=== PATIENT | female | born 1975 | race Two or more races ===

== ENCOUNTER 2020-02-22 08:56 | Outpatient (REF) | payer OTHER, SELFPAY | END 2020-02-22 08:57 | disposition home or self-care (01) | LOC: HO.LAB 08:56 | PROVIDERS: PCP Internal Medicine; Visit Provider Internal Medicine | DX: Z20.828 Contact with and (suspected) exposure to other viral communicable diseases (principal) | CPT/HCPCS: C9803; U0003 ==

== ENCOUNTER 2020-05-16 07:16 | Outpatient (REF) | payer OTHER, SELFPAY ==
[2020-05-16 08:43] LABS: MANUAL DIFF FLAG NO
[2020-05-16 08:52] LABS: Basophils Percent Auto 0.3 % (0-2); Eosinophils Absolute Auto 0.1 X10*3/uL (0.0-0.4); Eosinophils Percent Auto 0.8 % (0-4); Hematocrit 37.9 % (37-47); Hemoglobin 12.4 g/dl (12.0-16.0); Imm Gran Abs Auto 0.05 X10*3/uL (0.00-0.03); Imm Gran Pct Auto 0.5 % (0.0-0.4); Lymphocytes Absolute Auto 3.5 X10*3/uL (1.2-4.9); Lymphocytes Percent Auto 33.1 % (20-40); Mean Corpuscular HGB Conc 32.7 g/dl (31.0-35.0); Mean Corpuscular Hemoglobin 27.7 pg (27.0-33.0); Mean Corpuscular Volume 84.6 fL (80-98); Mean Platelet Volume 9.6 fL (9.4-12.3); Monocytes Absolute Auto 0.7 X10*3/uL (0.1-1.2); Monocytes Percent Auto 6.2 % (2-11); Neutrophils Absolute Auto 6.3 X10*3/uL (2.0-8.3); Neutrophils Percent Auto 59.1 % (45-73); Platelet Count 364 X10*3/uL (160-400); Red Blood Count 4.48 X10*6/uL (4.20-5.50); Red Cell Distribution Width 12.5 % (11.0-16.0); White Blood Count 10.7 X10*3/uL (4.8-10.8)
[2020-05-16 09:03] LABS: Estimated Average Glucose 263 mg/dL; Hemoglobin A1c % 10.8 %
[2020-05-16 09:05] LABS: Glucose Urine UA 100 MG/DL (NEG); Leukocyte Esterase Urine TRACE (NEG); Nitrite Urine NEG (NEG); Specific Gravity - Urine >= 1.030 (1.005-1.025); UACC Culture Trigger YES; Urine Blood NEG (NEG); Urine Ketones NEG (NEG); Urine Protein NEG (NEG-TRACE)
[2020-05-16 09:12] LABS: Appearance Urine HAZY; Color Urine YELLOW
[2020-05-16 09:13] LABS: Alanine Aminotransferase 62 U/L (0-31); Albumin Level 4.2 g/dL (3.5-5.0); Alkaline Phosphatase 93 U/L (39-117); Anion Gap 13 (12-20); Aspartate Amino Transferase 33 U/L (5-31); Bilirubin Total 0.5 mg/dL (0.0-1.0); Blood Urea Nitrogen 11 mg/dL (9-16); Carbon Dioxide 26 mmol/L (22-29); Chloride 100 mmol/L (96-108); Cholesterol 214 mg/dL; Estimated Glomerular Filt Rate > 60; Glucose Fasting 242 mg/dL (60-99); HDL Cholesterol 35 mg/dL; Potassium 4.4 mmol/L (3.3-5.1); Sodium 135 mmol/L (135-145); Total Protein 7.2 g/dL (6.5-8.0); Triglycerides 528 mg/dL
[2020-05-16 09:22] LABS: Bacteria Urine 1+ /LPF; Mucus Urine 2+ /LPF; RBC Urine 0 /HPF (0); Squamous Epithelial Cell Urine 1+ /LPF; UACC CULT YES
[2020-05-16 09:23] LABS: TSH reflex Free T4 3.33 uIU/mL (0.32-4.0); Vitamin D 25-OH Total 24.8 ng/mL (>30)
[2020-05-16 09:41] LABS: Creatinine Urine 140.73 mg/dL
== END 2020-05-16 07:17 | disposition home or self-care (01) ==
LOC: HO.LAB 07:16
PROVIDERS: PCP Internal Medicine; Visit Provider Internal Medicine
DX: E11.9 Type 2 diabetes mellitus without complications (principal); E78.00 Pure hypercholesterolemia, unspecified; R94.5 Abnormal results of liver function studies; E55.9 Vitamin D deficiency, unspecified; E66.01 Morbid (severe) obesity due to excess calories
CPT/HCPCS: 36415; 80053; 80061; 81001; 82043; 82306; 83036; 84443; 85025; 87086

== ENCOUNTER 2021-02-09 07:19 | Outpatient (REF) | payer OTHER, SELFPAY ==
[2021-02-09 07:43] LABS: MANUAL DIFF FLAG NO
[2021-02-09 08:07] LABS: Basophils Percent Auto 0.2 % (0-2); Eosinophils Absolute Auto 0.1 X10*3/uL (0.0-0.4); Eosinophils Percent Auto 1.1 % (0-4); Imm Gran Abs Auto 0.05 X10*3/uL (0.00-0.03); Imm Gran Pct Auto 0.6 % (0.0-0.4); Lymphocytes Absolute Auto 3.1 X10*3/uL (1.2-4.9); Lymphocytes Percent Auto 35.7 % (20-40); Mean Corpuscular HGB Conc 32.4 g/dl (31.0-35.0); Mean Corpuscular Hemoglobin 27.2 pg (27.0-33.0); Mean Corpuscular Volume 83.9 fL (80.0-98.0); Mean Platelet Volume 9.3 fL (9.4-12.3); Monocytes Absolute Auto 0.6 X10*3/uL (0.1-1.2); Monocytes Percent Auto 6.5 % (2-11); Neutrophils Absolute Auto 4.86 x10*3/uL (2.0-8.3); Neutrophils Percent Auto 55.9 % (45-73); Platelet Count 401 X10*3/uL (160-400); Red Blood Count 4.41 X10*6/uL (4.20-5.50); Red Cell Distribution Width 12.3 % (11.0-16.0); White Blood Count 8.7 X10*3/uL (4.8-10.8)
[2021-02-09 08:38] LABS: Alanine Aminotransferase 31 U/L (0-31); Alkaline Phosphatase 86 U/L (39-117); Anion Gap 12 (12-20); Aspartate Amino Transferase 24 U/L (5-31); Bilirubin Total 0.6 mg/dL (0.0-1.0); Blood Urea Nitrogen 12 mg/dL (9-16); Calcium 9.3 mg/dL (8.4-10.2); Carbon Dioxide 25 mmol/L (22-29); Chloride 104 mmol/L (96-108); Cholesterol 204 mg/dL; Estimated Glomerular Filt Rate > 60; Glucose Fasting 192 mg/dL (60-99); HDL Cholesterol 30 mg/dL; Potassium 4.2 mmol/L (3.3-5.1); Sodium 137 mmol/L (135-145); Triglycerides 404 mg/dL
[2021-02-09 08:39] LABS: Estimated Average Glucose 206 mg/dL; Hemoglobin A1c % 8.8 %
[2021-02-09 08:45] LABS: Appearance Urine HAZY; Color Urine YELLOW; Glucose Urine UA NEG (NEG); Leukocyte Esterase Urine TRACE (NEG); Nitrite Urine NEG (NEG); Specific Gravity - Urine 1.025 (1.005-1.025); UACC Culture Trigger YES; Urine Blood NEG (NEG); Urine Ketones NEG (NEG); Urine Protein NEG (NEG-TRACE)
[2021-02-09 09:00] LABS: TSH reflex Free T4 2.44 uIU/mL (0.32-4.0); Vitamin D 25-OH Total 16.5 ng/mL (>30)
[2021-02-09 09:15] LABS: Creatinine Urine 94.12 mg/dL; Microalbum/Creatinine Ratio Ur 26.5 ug/mg cr
[2021-02-09 09:22] LABS: RBC Urine 0 /HPF (0)
[2021-02-09 09:23] LABS: Mucus Urine 2+ /LPF; Squamous Epithelial Cell Urine 2+ /LPF
== END 2021-02-09 07:20 | disposition home or self-care (01) ==
LOC: HO.LAB 07:19
PROVIDERS: PCP Internal Medicine; Visit Provider Internal Medicine
DX: I10 Essential (primary) hypertension (principal); E78.00 Pure hypercholesterolemia, unspecified; E11.9 Type 2 diabetes mellitus without complications; E55.9 Vitamin D deficiency, unspecified
CPT/HCPCS: 36415; 80053; 80061; 81001; 81003; 82043; 82306; 83036; 84443; 85025; 87086

== ENCOUNTER 2021-06-12 07:31 | Outpatient (REF) | payer OTHER, SELFPAY ==
[2021-06-12 07:48] LABS: MANUAL DIFF FLAG NO
[2021-06-12 08:14] LABS: Basophils Percent Auto 0.3 % (0-2); Eosinophils Absolute Auto 0.1 X10*3/uL (0.0-0.4); Eosinophils Percent Auto 1.2 % (0-4); Hemoglobin 12.2 g/dl (12.0-16.0); Imm Gran Abs Auto 0.03 X10*3/uL (0.00-0.03); Imm Gran Pct Auto 0.4 % (0.0-0.4); Lymphocytes Percent Auto 39.3 % (20-40); Mean Corpuscular HGB Conc 31.3 g/dl (31.0-35.0); Mean Corpuscular Hemoglobin 26.5 pg (27.0-33.0); Mean Corpuscular Volume 84.8 fL (80.0-98.0); Mean Platelet Volume 9.3 fL (9.4-12.3); Monocytes Absolute Auto 0.6 X10*3/uL (0.1-1.2); Monocytes Percent Auto 7.4 % (2-11); Neutrophils Absolute Auto 3.9 x10*3/uL (2.0-8.3); Neutrophils Percent Auto 51.4 % (45-73); Platelet Count 419 X10*3/uL (160-400); Red Cell Distribution Width 12.9 % (11.0-16.0); White Blood Count 7.6 X10*3/uL (4.8-10.8)
[2021-06-12 08:17] LABS: Appearance Urine CLOUDY; Color Urine YELLOW; Glucose Urine UA NEG (NEG); Leukocyte Esterase Urine 2+ (NEG); Nitrite Urine NEG (NEG); UACC Culture Trigger YES; Urine Blood NEG (NEG); Urine Ketones NEG (NEG); Urine Protein NEG (NEG-TRACE)
[2021-06-12 08:20] LABS: Estimated Average Glucose 203 mg/dL; Hemoglobin A1c % 8.7 %
[2021-06-12 08:32] LABS: Creatinine Urine 100.86 mg/dL; Microalbum/Creatinine Ratio Ur 29.7 ug/mg cr
[2021-06-12 08:34] LABS: Alanine Aminotransferase 20 U/L (0-31); Alkaline Phosphatase 86 U/L (39-117); Anion Gap 14 (12-20); Aspartate Amino Transferase 17 U/L (5-31); Bilirubin Total 0.7 mg/dL (0.0-1.0); Blood Urea Nitrogen 9 mg/dL (9-16); Calcium 9.3 mg/dL (8.4-10.2); Carbon Dioxide 26 mmol/L (22-29); Chloride 105 mmol/L (96-108); Cholesterol 215 mg/dL; Estimated Glomerular Filt Rate > 60; Glucose Fasting 177 mg/dL (60-99); HDL Cholesterol 33 mg/dL; LDL Cholesterol Calculated 126 mg/dl; Potassium 4.5 mmol/L (3.3-5.1); Sodium 140 mmol/L (135-145); Triglycerides 283 mg/dL
[2021-06-12 08:35] LABS: Bacteria Urine 1+ /LPF; RBC Urine 0 /HPF (0); Squamous Epithelial Cell Urine 4+ /LPF
[2021-06-12 08:58] LABS: TSH reflex Free T4 2.01 uIU/mL (0.32-4.0); Vitamin D 25-OH Total 14.4 ng/mL (>30)
== END 2021-06-12 07:32 | disposition home or self-care (01) ==
LOC: HO.LAB 07:31
PROVIDERS: PCP Internal Medicine; Visit Provider Internal Medicine
DX: I10 Essential (primary) hypertension (principal); E78.00 Pure hypercholesterolemia, unspecified; E11.9 Type 2 diabetes mellitus without complications; E55.9 Vitamin D deficiency, unspecified
CPT/HCPCS: 36415; 80053; 80061; 81001; 82043; 82306; 83036; 84443; 85025; 87086

== ENCOUNTER 2021-09-18 08:06 | Outpatient (REF) | payer OTHER, SELFPAY ==
[2021-09-18 08:28] LABS: MANUAL DIFF FLAG NO
[2021-09-18 09:19] LABS: Basophils Percent Auto 0.2 % (0-2); Eosinophils Absolute Auto 0.1 X10*3/uL (0.0-0.4); Eosinophils Percent Auto 1.1 % (0-4); Hematocrit 38.6 % (37.0-47.0); Hemoglobin 12.4 g/dl (12.0-16.0); Imm Gran Abs Auto 0.08 X10*3/uL (0.00-0.03); Imm Gran Pct Auto 0.8 % (0.0-0.4); Lymphocytes Absolute Auto 3.2 X10*3/uL (1.2-4.9); Lymphocytes Percent Auto 31.2 % (20-40); Mean Corpuscular HGB Conc 32.1 g/dl (31.0-35.0); Mean Corpuscular Hemoglobin 26.7 pg (27.0-33.0); Mean Corpuscular Volume 83.2 fL (80.0-98.0); Mean Platelet Volume 9.5 fL (9.4-12.3); Monocytes Absolute Auto 0.6 X10*3/uL (0.1-1.2); Neutrophils Absolute Auto 6.2 x10*3/uL (2.0-8.3); Neutrophils Percent Auto 60.7 % (45-73); Platelet Count 422 X10*3/uL (160-400); Red Blood Count 4.64 X10*6/uL (4.20-5.50); White Blood Count 10.2 X10*3/uL (4.8-10.8)
[2021-09-18 09:23] LABS: Appearance Urine HAZY; Color Urine YELLOW; Glucose Urine UA NEG (NEG); Leukocyte Esterase Urine TRACE (NEG); Nitrite Urine NEG (NEG); Specific Gravity - Urine 1.015 (1.005-1.025); Urine Blood NEG (NEG); Urine Ketones NEG (NEG); Urine Protein NEG (NEG-TRACE)
[2021-09-18 09:35] LABS: Estimated Average Glucose 177 mg/dL; Hemoglobin A1c % 7.8 %
[2021-09-18 09:47] LABS: Bacteria Urine 4+ /LPF; RBC Urine 0 /HPF (0)
[2021-09-18 09:49] LABS: Alanine Aminotransferase 22 U/L (0-31); Albumin Level 3.9 g/dL (3.5-5.0); Alkaline Phosphatase 83 U/L (39-117); Anion Gap 13 (12-20); Aspartate Amino Transferase 21 U/L (5-31); Bilirubin Total 0.7 mg/dL (0.0-1.0); Blood Urea Nitrogen 10 mg/dL (9-16); Calcium 8.7 mg/dL (8.4-10.2); Carbon Dioxide 25 mmol/L (22-29); Chloride 104 mmol/L (96-108); Cholesterol 192 mg/dL; Estimated Glomerular Filt Rate > 60; Glucose Fasting 153 mg/dL (60-99); HDL Cholesterol 32 mg/dL; LDL Cholesterol Calculated 113 mg/dl; Potassium 4.3 mmol/L (3.3-5.1); Sodium 138 mmol/L (135-145); Total Protein 6.9 g/dL (6.5-8.0); Triglycerides 235 mg/dL
[2021-09-18 10:12] LABS: TSH reflex Free T4 1.85 uIU/mL (0.32-4.0)
[2021-09-18 10:20] LABS: Creatinine Urine 72.05 mg/dL; Microalbum/Creatinine Ratio Ur 33.3 ug/mg cr
[2021-09-18 10:50] LABS: Vitamin D 25-OH Total 17.4 ng/mL (>30)
== END 2021-09-18 08:07 | disposition home or self-care (01) ==
LOC: HO.LAB 08:06
PROVIDERS: PCP Internal Medicine; Visit Provider Internal Medicine
DX: I10 Essential (primary) hypertension (principal); E55.9 Vitamin D deficiency, unspecified; E78.00 Pure hypercholesterolemia, unspecified; E11.9 Type 2 diabetes mellitus without complications
CPT/HCPCS: 36415; 80053; 80061; 81001; 82043; 82306; 83036; 84443; 85025

== ENCOUNTER 2021-11-05 11:38 | Outpatient (REF) | payer OTHER, SELFPAY ==
--- NOTE | ~2021-11-05 | US_ITS ---
EXAMINATION: US THYROID CLINICAL INFORMATION: Nontoxic single thyroid nodule. COMPARISON: None TECHNIQUE: Linear transducer grayscale and color Doppler examination with attention to the region of the thyroid. FINDINGS: SIZE: Measurements of the thyroid lobes and nodules are given in sagittal, anteroposterior and transverse dimensions respectively. Right Thyroid Lobe: 5.1 x 1.9 x 1.7 cm, volume 8.6 mL. Parenchyma: The gland echotexture is homogeneous. Thyroid vascularity is normal. Left Thyroid Lobe: 4.0 x 1.6 x 1.9 cm, volume 6.4 mL. Parenchyma: The gland echotexture is homogeneous. Thyroid vascularity is normal. Isthmus: 0.5 cm in maximum AP dimension. Estimated total number of nodules greater than or equal to 1 cm: 0. Falafel Cart Cook nodules are described as follows: 1. Location: Right inferior. Size: 0.5 x 0.3 x 0.3 cm, volume 0.02 mL. Nodule characteristics: Composition: Spongiform (0). Echogenicity: Anechoic (0). Shape: Not taller than wide (0). Margins: Smooth (0). Echogenic Foci: None (0). ACR TI-RADS total points: 0 ACR TI-RADS category: 1 2. Location: Right medial/inferior isthmus. Size: 0.7 x 0.3 x 0.6 cm, volume 0.07 mL. Nodule characteristics: Composition: Spongiform (0). Echogenicity: Anechoic (0). Shape: Not taller than wide (0). Margins: Smooth (0). Echogenic Foci: None (0). ACR TI-RADS total points: 0 ACR TI-RADS category: 1 NODES: No lymphadenopathy is seen in the tissue surrounding the thyroid gland. US/US thyroid IMPRESSION: Subcentimeter spongiform nodules and colloid cysts for which no imaging follow-up is recommended following the guidelines below. ACR TI-RADS RECOMMENDATION REFERENCE: Ultrasound-guided fine-needle aspiration, followup ultrasound, no further follow up. * TR1 (0 point) and TR 2 (2 points): No FNA or follow up * TR3 (3 points): FNA if more than or equal to 2.5 cm in maximum dimension, followup ultrasound in 1, 3 and 5 years if 1.5 to 2.4 cm in maximum dimension. * TR4 (4-6 points): FNA if more than or equal to 1.5 cm in maximum dimension, followup ultrasound in 1, 2, 3 and 5 years if 1 to 1.4 cm in maximum dimension. * TR5 (more than or equal to 7 points): FNA if more than or equal to 1 cm in maximum dimension, followup ultrasound every year for 5 years if 0.5 to 0.9 cm in maximum dimension. * TR3, TR4 or TR5 nodules that are below the size threshold for follow up receive no follow up.
== END 2021-11-05 11:39 | disposition home or self-care (01) ==
LOC: HO.HMGCX 11:38
PROVIDERS: Visit Provider Internal Medicine
DX: E04.1 Nontoxic single thyroid nodule (principal)
CPT/HCPCS: 76536

== ENCOUNTER 2022-06-24 08:53 | Outpatient (REF) | payer OTHER, SELFPAY ==
[2022-06-24 09:02] LABS: MANUAL DIFF FLAG NO
[2022-06-24 09:51] LABS: Basophils Percent Auto 0.2 % (0-2); Eosinophils Absolute Auto 0.1 X10*3/uL (0.0-0.4); Eosinophils Percent Auto 0.7 % (0-4); Hematocrit 39.1 % (37.0-47.0); Hemoglobin 12.7 g/dl (12.0-16.0); Imm Gran Abs Auto 0.05 X10*3/uL (0.00-0.03); Imm Gran Pct Auto 0.5 % (0.0-0.4); Lymphocytes Absolute Auto 3.7 X10*3/uL (1.2-4.9); Lymphocytes Percent Auto 35.9 % (20-40); Mean Corpuscular HGB Conc 32.5 g/dl (31.0-35.0); Mean Corpuscular Hemoglobin 27.7 pg (27.0-33.0); Mean Corpuscular Volume 85.2 fL (80.0-98.0); Mean Platelet Volume 9.9 fL (9.4-12.3); Monocytes Absolute Auto 0.7 X10*3/uL (0.1-1.2); Monocytes Percent Auto 6.6 % (2-11); Neutrophils Absolute Auto 5.8 x10*3/uL (2.0-8.3); Neutrophils Percent Auto 56.1 % (45-73); Platelet Count 456 X10*3/uL (160-400); Red Blood Count 4.59 X10*6/uL (4.20-5.50); White Blood Count 10.4 X10*3/uL (4.8-10.8)
[2022-06-24 09:54] LABS: Estimated Average Glucose 177 mg/dL; Hemoglobin A1c % 7.8 %
[2022-06-24 10:20] LABS: Appearance Urine Cloudy; Color Urine Yellow; Glucose Urine UA >=1000 mg/dL (Negative); Leukocyte Esterase Urine Negative (Negative); Nitrite Urine Negative (Negative); PH 5.5 (5.0-9.0); Specific Gravity - Urine >= 1.030 (1.005-1.025); UMIC TRIGGER UACC YES; Urine Blood Trace (Negative); Urine Ketones Negative (Negative); Urine Protein Negative (Neg-Trace)
[2022-06-24 10:24] LABS: Bacteria Urine 3+ (None Seen); Hyaline Casts Urine 0-2 /LPF (0-2); RBC Urine 0-2 /HPF (0-2); WBC Urine 0-5 /HPF (0-5)
[2022-06-24 10:56] LABS: Alanine Aminotransferase 21 U/L (0-31); Alkaline Phosphatase 86 U/L (39-117); Anion Gap 15 (12-20); Aspartate Amino Transferase 31 U/L (5-31); Bilirubin Total 0.8 mg/dL (0.0-1.0); Blood Urea Nitrogen 16 mg/dL (9-16); Carbon Dioxide 24 mmol/L (22-29); Chloride 104 mmol/L (96-108); Cholesterol 176 mg/dL; Estimated Glomerular Filt Rate > 60; Glucose Fasting 145 mg/dL (60-99); HDL Cholesterol 32 mg/dL; LDL Cholesterol Calculated 107 mg/dl; Sodium 138 mmol/L (135-145); Total Protein 7.4 g/dL (6.5-8.0); Triglycerides 185 mg/dL
[2022-06-24 11:08] LABS: TSH reflex Free T4 2.04 uIU/mL (0.32-4.0); Vitamin D 25-OH Total 21.1 ng/mL (>30)
[2022-06-24 11:09] LABS: Creatinine Urine 148.89 mg/dL; Microalbum/Creatinine Ratio Ur 14.7 ug/mg cr
== END 2022-06-24 08:54 | disposition home or self-care (01) ==
LOC: HO.LAB 08:53
PROVIDERS: PCP Internal Medicine; Visit Provider Internal Medicine
DX: E11.9 Type 2 diabetes mellitus without complications (principal); E78.00 Pure hypercholesterolemia, unspecified; E55.9 Vitamin D deficiency, unspecified; I10 Essential (primary) hypertension
CPT/HCPCS: 36415; 80053; 80061; 81001; 82043; 82306; 83036; 84443; 85025

== ENCOUNTER 2022-08-26 08:20 | Outpatient (REF) | payer OTHER, SELFPAY ==
--- NOTE | ~2022-08-26 | MM_ITS ---
EXAMINATION: MM SCREENING DIGITAL BREAST TOMOSYNTHESIS, BILATERAL CLINICAL INFORMATION: Screening. Asymptomatic. The lifetime risk of breast cancer based on the Tyrer-Cuzick Model is 15%. COMPARISON: Mammography: 08/16/2017 (baseline) TECHNIQUE: Digital breast tomosynthesis is performed in both the craniocaudal and mediolateral oblique views along with computer-aided detection (CAD). Synthesized 2D images are generated from the tomosynthesis. FINDINGS: There are scattered areas of fibroglandular density (ACR BI-RADS breast composition Category b). Parenchymal pattern is similar to prior baseline exam. There is no interval mass or architectural abnormality or developing density. The axilla and skin contours are unremarkable. Right breast has no abnormal calcifications. Left breast has new tightly grouped calcifications on CC view, anterior inferior 3 cm from nipple and also anterior inferior medial 5 cm from nipple. Suspect both groups are probably benign dermal calcifications. Patient will be recalled to confirm with additional change in views. MM/MM tomosynthesis screening BI IMPRESSION: Left: -2 new groups of calcifications lower anterior left breast, suspect benign dermal etiology. Right: -No mammographic evidence of malignancy. ASSESSMENT: BI-RADS 0: Incomplete - Need Additional Imaging Evaluation RECOMMENDATION: 1. Additional special tangent localization views left breast for probable dermal calcifications. 2. Radiology department staff will contact the patient for additional imaging. This patient's information was entered into a reminder system with a target due date for their next mammogram.
== END 2022-08-26 08:21 | disposition home or self-care (01) ==
LOC: HO.MAMMO 08:20
PROVIDERS: PCP Internal Medicine; Visit Provider Internal Medicine
DX: Z12.31 Encounter for screening mammogram for malignant neoplasm of breast (principal)
CPT/HCPCS: 77063; 77067

== ENCOUNTER 2022-09-09 13:42 | Outpatient (REF) | payer OTHER, SELFPAY ==
--- NOTE | ~2022-09-09 | MM_ITS ---
EXAMINATION: MM DIAGNOSTIC DIGITAL MAMMOGRAPHY, LEFT CLINICAL INFORMATION: Recall from screening for new tightly grouped possibly dermal calcifications residing close to skin anterior inferior left breast and anterior inferior medial left breast. COMPARISON: Mammography: 08/26/2022, 08/16/2017 (baseline). TECHNIQUE: Digital mammography is performed for assessment of possible dermal calcifications at 2 locations inferior left breast using fenestrated paddle and BB with hinged views. Series includes tangent view with 3-D imaging. FINDINGS: There are scattered areas of fibroglandular density (ACR BI-RADS breast composition Category b). The grouped calcifications anterior 6:00 position are over 15 in number, grouped within an area of approximately 0.8 cm across and reside immediately deep to the skin on the tangent views and tangent digital breast tomosynthesis. The second group slightly more central and medial lower left breast are poorly discerned, lesser in number and also just deep to the skin. Results are discussed with the patient at time of visit. As dermal calcifications cannot be definitively confirmed, stereotactic targeting and sampling is recommended. It is possible that at time of stereotactic sampling intradermal calcifications may be more definitively complicated. Results and recommendation called to front office coordinator (Eva) for Dr. Nicolas on 09/09/2022. MM/MM added views LT IMPRESSION: -2 groups of new calcifications lower left breast, close to skin but not definitively intradermal on today's additional views. ASSESSMENT: BI-RADS 4: Suspicious RECOMMENDATION: -Attempt stereotactic targeting and tissue sampling for 2 groups of calcifications close to skin inferior left breast. This patient's information was entered into a reminder system with a target due date for their next mammogram.
== END 2022-09-09 13:43 | disposition home or self-care (01) ==
LOC: HO.MAMMO 13:42
PROVIDERS: PCP Internal Medicine; Visit Provider Internal Medicine
DX: R92.1 Mammographic calcification found on diagnostic imaging of breast (principal)
CPT/HCPCS: 77065

== ENCOUNTER 2022-09-14 08:43 | Outpatient (REF) | payer OTHER, SELFPAY ==
--- NOTE | ~2022-09-14 | MM_ITS ---
EXAMINATION: STEREOTACTIC TOMOSYNTHESIS-GUIDED VACUUM-ASSISTED BREAST BIOPSY (TWO SITES), LEFT SPECIMEN RADIOGRAPHS (TWO SPECIMENS), LEFT POST PROCEDURE DIGITAL MAMMOGRAM, LEFT CLINICAL INFORMATION: 2 groups of new calcifications lower left breast close to skin but not definitively intradermal on additional diagnostic imaging. Stereotactic sampling recommended. TC score 15%. COMPARISON: Mammography 09/09/2022, 08/26/2022 (BI-RADS 0), 08/16/2017 (baseline). TECHNIQUE/PROCEDURE: Informed consent was obtained from the patient after discussion of the benefits, risks, and alternatives to biopsy today. Patient appeared to understand. Gave opportunity for questions. Patient signed consent form. LEFT BREAST (Specimen A): BIOPSY TABLE: Hologic Affirm Prone Biopsy System. LESION: Tightly grouped heterogeneous calcifications close to skin lower anterior breast. LOCAL ANESTHESIA: 15 mL carbonated 1% lidocaine; 10 mL 1% lidocaine with epinephrine. DERMATOTOMY: Single skin cam dermatotomy performed. NEEDLE: Suros Eviva 9-gauge vacuum assisted core biopsy device. APPROACH: Caudal cranial. TARGETING: Combination of digital breast tomosynthesis and stereotactic digital mammography used for targeting. CORES: 6. CLIP: Suros SecurMark T-shaped marker. SPECIMEN RADIOGRAPH (A): Specimen radiograph is taken in separate room using digital mammography. The index calcifications are in the excised cores. There are at least 25 calcifications in the cores. LEFT BREAST (Specimen B): Fresh biopsy supplies are used for 2nd biopsy site. BIOPSY TABLE: Hologic Affirm Prone Biopsy System. LESION: Grouped calcifications lower inner anterior left breast. LOCAL ANESTHESIA: 10 mL 1% lidocaine; 10 mL 1% lidocaine with epinephrine. DERMATOTOMY: Single skin cam dermatotomy performed. NEEDLE: Suros Eviva 9-gauge vacuum assisted core biopsy device. APPROACH: Caudal cranial. TARGETING: Combination of digital breast tomosynthesis and stereotactic digital mammography used for targeting. CORES: 6. CLIP: Suros SecurMark Barrel-shaped marker. SPECIMEN RADIOGRAPH (B): Specimen radiograph is taken in separate room using digital mammography. There are at least 5 calcifications in the cores. POST PROCEDURE UNILATERAL DIGITAL MAMMOGRAM: The post biopsy mammogram is performed in separate room using separate digital mammography equipment from the biopsy procedure. CC and ML views are obtained. There are scattered areas of fibroglandular density (breast composition category: b). The clip markers are in position. The calcifications are markedly decreased at both biopsy sites. No gross hematoma. The patient tolerated the procedure well. No immediate complications. Home instructions reviewed with the patient. Final pathology results are pending. MM/MM stereotactic biopsy ea add IMPRESSION: 1. Digital tomosynthesis-guided core biopsy left breast with clip placement, 2 sites. 2. Specimen radiograph taken and post procedure mammogram. There is satisfactory positioning of the biopsy clips. 3. Final pathology results pending. An addendum report will be issued.
[2022-09-14] MEDS: Lidocaine HCl 1 % 20 ML VIAL 30 ML SUBCUT (12:08)
[2022-09-14] MEDS: Lidocaine HCl 1%/Epi 1:100,000 10 ML VIAL SUBCUT ×2 (12:13→12:15)
[2022-09-14] MEDS: Sodium Bicarbonate 8.4% 50 MEQ/50 ML VIAL SUBCUT (12:17)
== END 2022-09-14 08:44 | disposition home or self-care (01) ==
LOC: HO.MAMMO 08:43
PROVIDERS: PCP Internal Medicine; Visit Provider Surgery
DX: R92.0 Mammographic microcalcification found on diagnostic imaging of breast (principal)
CPT/HCPCS: 19081; 19082; 88305; A4648

== ENCOUNTER → 2022-09-21 08:44 | Outpatient (BNVA) | payer OTHER, SELFPAY | PROVIDERS: PCP Internal Medicine; Visit Provider Internal Medicine ==

== ENCOUNTER → 2022-09-22 07:19 | Outpatient (BNVA) | payer OTHER, SELFPAY | PROVIDERS: PCP Internal Medicine; Visit Provider Surgery ==

== ENCOUNTER 2022-11-10 08:38 | Outpatient (REF) | payer OTHER, SELFPAY ==
[2022-11-10 08:56] LABS: MANUAL DIFF FLAG NO
[2022-11-10 09:45] LABS: Basophils Percent Auto 0.2 % (0-2); Eosinophils Percent Auto 0.4 % (0-4); Hematocrit 39.3 % (37.0-47.0); Hemoglobin 12.6 g/dl (12.0-16.0); Imm Gran Abs Auto 0.04 X10*3/uL (0.00-0.03); Imm Gran Pct Auto 0.4 % (0.0-0.4); Lymphocytes Absolute Auto 3.2 X10*3/uL (1.2-4.9); Lymphocytes Percent Auto 34.5 % (20-40); Mean Corpuscular HGB Conc 32.1 g/dl (31.0-35.0); Mean Corpuscular Hemoglobin 26.6 pg (27.0-33.0); Mean Corpuscular Volume 82.9 fL (80.0-98.0); Mean Platelet Volume 9.6 fL (9.4-12.3); Monocytes Absolute Auto 0.6 X10*3/uL (0.1-1.2); Monocytes Percent Auto 6.3 % (2-11); Neutrophils Absolute Auto 5.4 x10*3/uL (2.0-8.3); Neutrophils Percent Auto 58.2 % (45-73); Platelet Count 403 X10*3/uL (160-400); Red Blood Count 4.74 X10*6/uL (4.20-5.50); White Blood Count 9.3 X10*3/uL (4.8-10.8)
[2022-11-10 09:47] LABS: Appearance Urine Cloudy; Color Urine Yellow; Glucose Urine UA >=1000 mg/dL (Negative); Leukocyte Esterase Urine Moderate (2+) (Negative); Nitrite Urine Negative (Negative); PH 5.5 (5.0-9.0); Specific Gravity - Urine 1.025 (1.005-1.025); UMIC TRIGGER UACC YES; Urine Blood Negative (Negative); Urine Ketones Negative (Negative); Urine Protein Negative (Neg-Trace)
[2022-11-10 09:53] LABS: Estimated Average Glucose 151 mg/dL; Hemoglobin A1c % 6.9 %
[2022-11-10 09:59] LABS: Bacteria Urine 4+ (None Seen); Hyaline Casts Urine 0-2 /LPF (0-2); UACC Culture Trigger YES; WBC Urine 21-50 /HPF (0-5)
[2022-11-10 10:21] LABS: Alanine Aminotransferase 14 U/L (0-31); Albumin Level 4.1 g/dL (3.5-5.0); Alkaline Phosphatase 84 U/L (39-117); Anion Gap 14 (12-20); Aspartate Amino Transferase 14 U/L (5-31); Bilirubin Total 0.5 mg/dL (0.0-1.0); Blood Urea Nitrogen 14 mg/dL (9-16); Calcium 9.1 mg/dL (8.4-10.2); Carbon Dioxide 22 mmol/L (22-29); Chloride 107 mmol/L (96-108); Cholesterol 160 mg/dL; Estimated Glomerular Filt Rate > 60; Glucose Fasting 150 mg/dL (60-99); HDL Cholesterol 33 mg/dL; LDL Cholesterol Calculated 76 mg/dl; Potassium 3.8 mmol/L (3.3-5.1); Sodium 139 mmol/L (135-145); Total Protein 7.4 g/dL (6.5-8.0); Triglycerides 258 mg/dL
[2022-11-10 10:37] LABS: TSH reflex Free T4 2.01 uIU/mL (0.32-4.0)
[2022-11-10 11:09] LABS: Creatinine Urine 85.78 mg/dL; Microalbum/Creatinine Ratio Ur 16.3 ug/mg cr
== END 2022-11-10 08:39 | disposition home or self-care (01) ==
LOC: HO.LAB 08:38
PROVIDERS: PCP Internal Medicine; Visit Provider Internal Medicine
DX: E11.9 Type 2 diabetes mellitus without complications (principal); E55.9 Vitamin D deficiency, unspecified; I10 Essential (primary) hypertension; E78.00 Pure hypercholesterolemia, unspecified; R30.0 Dysuria
CPT/HCPCS: 36415; 80053; 80061; 81001; 82043; 82306; 83036; 84443; 85025; 87086

== ENCOUNTER 2022-12-19 15:28 | Outpatient (AMB) | payer OTHER, SELFPAY ==
[2022-12-19 15:38] VITALS: BP 144/98; PULSE 92; O2SAT 99; BMI 36.6
--- NOTE | 2022-12-19 15:38 | MHC.PC.OV ---
Vital Signs 12/19/22 15:38 Height 5 ft 7 in Weight 234 lb BMI 36.6 BP 144/98 H Blood Pressure Location Lt brachial Position Sitting Pulse 92 Pulse Source Pulse Oximeter Temp Source Skin Pulse Oximetry (%) 99 Oxygen Delivery Method Room Air Intake Visit Reasons: DM, hyperlipidemia Printing Pressman Required: No Allergies oxycodone Allergy (Unknown, Verified 12/19/22 16:26) palpitations Medication List - Last Reconciled 12/19/22 by Junior Nicolas MD atorvastatin 40 mg PO DAILY blood sugar diagnostic (FreeStyle Lite Strips) As directed blood-glucose meter (FreeStyle Lite Meter kit) As directed cholecalciferol (vitamin D3) 50 mcg PO DAILY dulaglutide (Trulicity) 1.5 mg subcut QWEEK empagliflozin (Jardiance) 25 mg PO DAILY fenofibrate 150 mg PO DAILY 30 days glipizide ER 5 mg PO DAILY lisinopril 10 mg PO DAILY metformin ER 1,000 mg (2 x 500 mg) PO BID Tobacco use date assessed: 12/19/22 Dental Screening Dental Screen Date: 12/19/22 Did you have a dental visit in the last 12 months?: Yes Did you have a dental problem in the last 6 months where you did not have access to dental care?: No Was dental information given to patient?: Patient has dentist HPI DM, hyperlipidemia HPI Details Patient comes in today for her follow up visit States that she feels okay but has noticed recurrent pain over her left knee for the past few weeks, especially when she is going down stairs At times feels like her knee might give out on her when it starts acting up Does not recall any recent injury or trauma to her knee She denies any headaches or dizziness Denies any chest pains, no SOB No nausea/vomiting, no abdominal pain No change in bowel habits noted Had her follow up labs done last month - to discuss her results [facility] Medical History Mixed hyperlipidemia Obesity (BMI 30-39.9) Vitamin D deficiency Elevated LFTs Benign essential hypertension Pure hypercholesterolemia Diabetes mellitus Surgical History History of section History of tonsillectomy and adenoidectomy Family History Father Hypertension CVD (cardiovascular disease) Mother Medical history unknown Maternal Grandmother No problems noted. Maternal Grandfather No problems noted. 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 How often do you have a drink containing alcohol?: Never 3. How often do you have six or more drinks on one occasion?: Never Total Score: 0 Score Reviewed/Action Taken: Yes ZOILA-7 AMB Questionnaire ZOILA-7 Date ZOILA - 7 assessed: 06/24/22 Source: Developed by Drs. Ja Young, Ale Green, Morgan De La Cruz and colleagues, with an educational daniel from [employer]. Review of Systems Const Denies fatigue, Denies fever(s) and Denies headache(s) ENT Denies dysphagia, Denies dizziness, Denies otalgia, Denies headache(s), Denies neck pain, Denies odynophagia and Denies sore throat Card Denies chest pain, Denies rapid heart rate, Denies irregular heart rhythm, Denies palpitations and Denies dyspnea Resp Denies cough, Denies dyspnea and Denies wheezing GI Denies abdominal pain, Denies constipation, Denies dysphagia, Denies heartburn, Denies diarrhea, Denies nausea, Denies odynophagia and Denies vomiting Denies urinary frequency, Denies dysuria, Denies urinary incontinence and Denies urinary urgency Musc Denies back pain, Reports arthralgias (over the left knee lately - see HPI), Denies joint swelling, Denies muscle weakness and Denies neck pain Neuro Denies dizziness, Denies headache(s) and Denies paresthesias Psych Denies anxiety and Denies depression Endo Denies fatigue and Denies palpitations Anirudh/Lymph Denies easy bruising Aller/Immun Denies wheezing Physical exam (Primary Care) Vital Signs: Last Vital Signs Pulse 92 12/19/22 15:38 BP 144/98 H 12/19/22 15:38 Pulse Ox 99 12/19/22 15:38 Oxygen Delivery Method Room Air 12/19/22 15:38 BMI result Body Mass Index 36.6 Tobacco/Smoking Status: Tobacco use Status Tobacco use date assessed 12/19/22 12/19/22 15:39 Patient Tobacco Use Status Never used Tobacco 12/19/22 15:39 e-Cigarette/Vaping Use Never Used 12/19/22 15:39 Thrive Assessment: Date of Thrive Assessment Date Thrive assessed 06/24/22 12/19/22 15:39 Const General: no acute distress and alert HENMT Ears: TM's normal bilaterally and EAC's normal Throat: Yes posterior oropharynx normal and Yes tonsils normal (no TP congestion) Neck Neck: Yes no lymphadenopathy and Yes supple Thyroid: Thyroid normal Resp Auscultation: clear to auscultation bilaterally, no rales and no wheezes Cardio Rate: regular rate Rhythm: regular rhythm Heart sounds: no murmurs GI Palpation (GI): Soft to palpation and nontender Auscultation: normal bowel sounds General: Yes no CVA tenderness Back/Spine/Pelvis Back: no CVA tenderness Thoracic/Lumbar Spine: thoracic and lumbar spine normal to inspection Skin Rashes: no rashes Extrem General: Yes no clubbing, cyanosis or edema Left lower extremity: knee Details: normal ROM; no tenderness and no swelling Assessment and Plan Assessment & Plan (1) Diabetes mellitus: Code(s): E11.9 - Type 2 diabetes mellitus without complications Qualifiers: Diabetes mellitus type: type 2 Diabetes mellitus intermediate project manager insulin use: without intermediate project manager use Diabetes mellitus complication status: with hyperglycemia Qualified Code(s): E11.65 - Type 2 diabetes mellitus with hyperglycemia Plan: HgbA1c has improved to 6.9% on her labs done last month (was at 7.8% a few months ago) - goal is at least < 7.0% Reinforced diabetic diet Continue Metformin ER 500 mg 2 tablets BID, Glipizide ER 5 mg QD, Jardiance 10 mg QD and Trulicity 1.5 mg SQ once a week Follow up with endocrinology (Dr. Boss) as scheduled (2) Mixed hyperlipidemia: Code(s): E78.2 - Mixed hyperlipidemia Plan: Results of her labs done last month reviewed and discussed with patient Reinforced low cholesterol diet Continue Fenofibrate 150 mg QD and Atorvastatin 20 mg QD Will recheck her labs and fasting lipids in 4 months for follow up (3) Benign essential hypertension: Code(s): I10 - Essential (primary) hypertension Plan: Reinforced low sodium diet - goal is systolic BP of 120 mm or less Continue Lisinopril 10 mg QD Patient instructed to monitor her blood pressure regularly and advised that if her BP remains higher than recommended at her next visit, we will need to consider increasing the dosage of her Lisinopril then (4) Elevated LFTs: Code(s): R79.89 - Other specified abnormal findings of blood chemistry Plan: Improved and have remained normal on her recent labs - was most likely due to her weight and high triglyceride level Will continue to monitor her LFTs regularly (5) Left knee pain: Code(s): M25.562 - Pain in left knee Qualifiers: Chronicity: unspecified Qualified Code(s): M25.562 - Pain in left knee Plan: Will send her for x-rays of the left knee for further evaluation Exam today is normal - most likely has some form of bursitis (6) Vitamin D deficiency: Code(s): E55.9 - Vitamin D deficiency, unspecified Plan: Corrected; continue Vitamin D3 2000 units QD Will recheck her Vitamin D level in 4 months for follow up (7) Thyroid mass: Code(s): E07.9 - Disorder of thyroid, unspecified Plan: Thyroid US done in October 2021 revealed subcentimeter spongiform nodules and colloid cysts that do NOT require follow up imaging studies - reassurance (8) Obesity (BMI 30-39.9): Code(s): E66.9 - Obesity, unspecified Plan: Reinforced diet/exercise as tolerated/lose weight Plan Follow up in 4 months Orders: Orders TSH reflex Free T4 4 Months E78.00 - Pure hypercholesterolemia, unspecified Vitamin D 25-OH Total 4 Months E55.9 - Vitamin D deficiency, unspecified XR knee LT 4V Today M25.562 - Pain in left knee Hemoglobin A1c 4 Months E11.9 - Type 2 diabetes mellitus without complications Lipid Panel 4 Months E78.00 - Pure hypercholesterolemia, unspecified Complete Blood Count Auto Diff 4 Months I10 - Essential (primary) hypertension Comprehensive Kila. Panel Fast 4 Months E78.00 - Pure hypercholesterolemia, unspecified Microalbumin, Random (w Creat) 4 Months E11.9 - Type 2 diabetes mellitus without complications UA CC w/rflx Micro + Cult 4 Months R30.0 - Dysuria Coding Level of Care Code Est Pt Level 4 (37286) Diagnoses Type 2 diabetes mellitus with hyperglycemia, without long-term current use of insulin E11.65 Diabetes mellitus type: type 2 Diabetes mellitus fpc insulin use: without intermediate project manager use Diabetes mellitus complication status: with hyperglycemia Mixed hyperlipidemia E78.2 Benign essential hypertension I10 Elevated LFTs R79.89 Left knee pain, unspecified chronicity M25.562 Chronicity: unspecified Vitamin D deficiency E55.9 Thyroid mass E07.9 Obesity (BMI 30-39.9) E66.9
== END 2022-12-19 17:00 | disposition home or self-care (01) ==
PROVIDERS: PCP Internal Medicine; Visit Provider Internal Medicine
DX: E11.65 Type 2 diabetes mellitus with hyperglycemia (principal); I10 Essential (primary) hypertension; E55.9 Vitamin D deficiency, unspecified; E78.2 Mixed hyperlipidemia; R79.89 Other specified abnormal findings of blood chemistry; M25.562 Pain in left knee; E07.9 Disorder of thyroid, unspecified; E66.9 Obesity, unspecified
CPT/HCPCS: 99214

== ENCOUNTER 2022-12-26 08:34 | Outpatient (REF) | payer OTHER, SELFPAY ==
--- NOTE | ~2022-12-26 | XR_ITS ---
EXAMINATION: XR KNEE, LEFT CLINICAL INFORMATION: Knee pain COMPARISON: None available. TECHNIQUE: Four views of the left knee. FINDINGS: Joint effusion present. Joint spaces are preserved. Tiny tricompartmental osteophytes. XR/XR knee LT 4V IMPRESSION: Joint effusion. Minimal degenerative changes.
== END 2022-12-26 08:35 | disposition home or self-care (01) ==
LOC: HO.LAB 08:34
PROVIDERS: PCP Internal Medicine; Visit Provider Internal Medicine
DX: M25.562 Pain in left knee (principal)
CPT/HCPCS: 73564

== ENCOUNTER 2023-01-30 10:52 | Outpatient (REF) | payer OTHER, SELFPAY ==
[2023-01-30 16:28] LABS: CT PCR NOT DETECTED (Not Detect.); NG PCR NOT DETECTED (Not Detect.)
[2023-01-31 10:39] LABS: BV Int Neg Control Negative (Negative); BV Int Pos Control Positive (Positive)
[2023-02-01 20:37] LABS: HPV mRNA E6/E7 rflx Not Detected (Not Detected)
== END 2023-01-30 10:53 | disposition home or self-care (01) ==
LOC: HO.LNP 10:52
PROVIDERS: Visit Provider Advanced Practice Midwife
DX: Z01.419 Encounter for gynecological examination (general) (routine) without abnormal findings (principal); Z11.51 Encounter for screening for human papillomavirus (HPV); Z20.2 Contact with and (suspected) exposure to infections with a predominantly sexual mode of transmission
CPT/HCPCS: 0353U; 87480; 87510; 87624; 87660; 88142

== ENCOUNTER 2023-01-30 10:52 | Outpatient (AMB) | payer OTHER, SELFPAY ==
--- NOTE | 2023-01-30 11:03 | MHC.OFFVIS ---
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 (Xochilt) Allergies oxycodone Allergy (Unknown, Verified 01/30/23 11:04) palpitations Medication List - Last Reconciled 01/30/23 by Ryann Bernal CNM atorvastatin 40 mg PO DAILY blood sugar diagnostic (FreeStyle Lite Strips) As directed blood-glucose meter (FreeStyle Lite Meter kit) As directed cholecalciferol (vitamin D3) 50 mcg PO DAILY dulaglutide (Trulicity) 1.5 mg subcut QWEEK empagliflozin (Jardiance) 25 mg PO DAILY glipizide ER 5 mg PO DAILY lisinopril 10 mg PO DAILY metformin ER 1,000 mg (2 x 500 mg) PO BID Is last menstrual period known: Yes Last menstrual period: 01/24/23 HPI New patient /01/30 PT confirm HPI Details 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 She says she used to come here years ago and she thinks her last Pap was 2017 she delivered a baby at [facility] in 2013. She had hypertension at the time since then she has developed diabetes her delivery was by she was fully dilated but he would not come out he was 7 lb and some oz. she sees Dr. Nicolas for her primary healthcare and Dr. Boss for endocrine and she is on Trulicity per Dr. Boss. She feels like she has been doing really well on it and she has lost about 20 lb and it makes her feel like she has got a little bit more energy and helps with her appetite. She has talked about the weight loss program with her primary but does not think she got a referral. She has not contraceptive it in many many years and has not gotten at 1 point she was trying to have a baby in that did not work she would probably welcome it if she got though she admits she is not sure how that would be with her diabetes and her meds. [facility] Medical History Mixed hyperlipidemia Obesity (BMI 30-39.9) Vitamin D deficiency Elevated LFTs Benign essential hypertension Pure hypercholesterolemia Diabetes mellitus Surgical History History of section History of tonsillectomy and adenoidectomy Family History Father Hypertension CVD (cardiovascular disease) Mother Medical history unknown Maternal Grandmother No problems noted. Maternal Grandfather No problems noted. 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 Sexual orientation: Straight/Heterosexual Gender identity: Female Cognitive needs: No Hearing needs: No Vision needs: No Female Reproductive History Menstrual Duration of menses: 3-5 days Date of last menstrual period: 01/24/23 control method: none Total pregnancies: 1 Full term: 1 Number of Living Children: 1 Date of last pap smear: 03/06/18 (neg pap and hpv) Date of Mammogram: 09/09/22 (Birad 4) Physical Exam Vital Signs: Last Vital Signs BP 156/108 H 01/30/23 11:15 BMI result Body Mass Index 36.0 Const General: healthy appearing, comfortable, no acute distress, well developed and alert Nutritional Appearance: average body habitus and obese Orientation/consciousness: patient oriented x3 Limitations: no limitations HEENT Head: Yes normocephalic Neck Neck: Yes normal visual inspection Chest Chest palpation & inspection: normal inspection of the chest Breast/axilla inspection: normal inspection of the breasts and normal inspection of the axillae Breast/axilla palpation: normal palpation of the breasts and normal palpation of the axillae Resp Effort & Inspection: normal respiratory effort GI Inspection: Yes normal to inspection, No Abdominal wall edema and No distended Palpation (GI): Soft to palpation and nontender Other: External vulva within normal limits vagina pink and moist cervix is multiparous pink smooth clear with normal appearing mucus friable with Pap. Uterus feels midposition but difficult to tell secondary to adipose good tone with Kegel. General: Yes bladder normal to palpation External Female Exam: normal external appearance and normal appearance of the urethra Speculum Exam - Vagina: normal appearance of the vagina, normal palpation and normal vaginal discharge Speculum Exam - Cervix: normal appearance of the cervix, normal palpation and nontender Bimanual exam- vagina & uterus: normal bimanual exam, normal palpation, uterine size normal, bladder normal to palpation, consistency normal, normal palpation, uterine mobility normal, uterine shape normal, No Cervical tenderness present, non-tender and no cervical motion tenderness Bimanual Exam- Adnexa, other: normal adnexae, no masses, normal and No adnexal tenderness Neuro General: patient oriented x3 Assessment & Plan Assessment & Plan (1) Cervical cancer screening: Comment: Last Pap- negative,2018. Pap done today 01/30/2023. Code(s): Z12.4 - Encounter for screening for malignant neoplasm of cervix (2) Obesity (BMI 30-39.9): Code(s): E66.9 - Obesity, unspecified (3) Diabetes mellitus: Code(s): E11.9 - Type 2 diabetes mellitus without complications Qualifiers: Diabetes mellitus type: type 2 Diabetes mellitus continuous churn buttermaker insulin use: without continuous churn buttermaker use Diabetes mellitus complication status: with hyperglycemia Qualified Code(s): E11.65 - Type 2 diabetes mellitus with hyperglycemia (4) Benign essential hypertension: Code(s): I10 - Essential (primary) hypertension (5) Well woman exam with routine gynecological exam: Code(s): Z01.419 - Encounter for gynecological examination (general) (routine) without abnormal findings (6) Breast cancer screening: Comment: States she had breast biopsies which were negative this year has Q 6 month follow-up all set up. Code(s): Z12.39 - Encounter for other screening for malignant neoplasm of breast Plan Reviewed her history. Reviewed her happiness with her diabetes progress. Reviewed fertility awareness and control and she is aware of ovulation suggest a condoms when ovulating discussed that if she did get she would be a very high risk and would need to contact her diabetes care providers right away and discuss things with them and that she would need to seek care immediately at [facility] if she would be high risk. She has breast follow-up scheduled every 6 months for follow-up after the biopsies that were done this year. 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 She was not worried about STIs but excepted cultures along with the Pap. Orders: Orders Pap Smear Today Z01.419 - Encounter for gynecological examination (general) (routine) without abnormal findings Bacterial Vaginosis Panel Today Z20.2 - Contact with and (suspected) exposure to infections with a predominantly sexual mode of transmission CT NG by PCR Today Z20.2 - Contact with and (suspected) exposure to infections with a predominantly sexual mode of transmission Coding Level of Care Code New Pt Prev Care 40-64y(27543) Diagnoses Cervical cancer screening Z12.4 Obesity (BMI 30-39.9) E66.9 Type 2 diabetes mellitus with hyperglycemia, without long-term current use of insulin E11.65 Diabetes mellitus type: type 2 Diabetes mellitus intermediate insulin use: without intermediate use Diabetes mellitus complication status: with hyperglycemia Benign essential hypertension I10 Well woman exam with routine gynecological exam Z01.419 Breast cancer screening Z12.39
[2023-01-30 11:15] VITALS: BP 156/108; BMI 36.0
== END 2023-01-30 12:10 | disposition home or self-care (01) ==
PROVIDERS: Visit Provider Advanced Practice Midwife
DX: Z01.419 Encounter for gynecological examination (general) (routine) without abnormal findings (principal); E66.9 Obesity, unspecified; E11.65 Type 2 diabetes mellitus with hyperglycemia; I10 Essential (primary) hypertension
CPT/HCPCS: 99386

== ENCOUNTER 2023-01-30 12:04 | Outpatient (REF) | payer OTHER, SELFPAY | END 2023-01-30 12:05 | disposition home or self-care (01) | LOC: HO.LAB 12:04 | PROVIDERS: Visit Provider Advanced Practice Midwife | DX: Z13.89 Encounter for screening for other disorder (principal) ==

== ENCOUNTER 2023-03-27 08:38 | Outpatient (REF) | payer OTHER, SELFPAY ==
--- NOTE | ~2023-03-27 | MM_ITS ---
EXAMINATION: MM DIAGNOSTIC DIGITAL BREAST TOMOSYNTHESIS, LEFT CLINICAL INFORMATION: The patient presents for recommended short interval six-month follow-up mammography after 2 sites of benign stereotactic biopsy. COMPARISON: Mammography: This study is compared to prior exams dating back to 2018. TECHNIQUE: Digital breast tomosynthesis is performed in both the craniocaudal and mediolateral oblique views along with computer-aided detection (CAD). Synthesized 2D images are generated from the tomosynthesis. FINDINGS: There are scattered areas of fibroglandular density (ACR BI-RADS breast composition Category b). There are no significant masses, abnormal calcifications, or other abnormalities. There are 2 tissue markers indicating the site of prior benign stereotactic biopsy. These lie above and below the nipple. There are no mammographic signs of malignancy in the left breast. Routine, bilateral, annual screening mammography should resume in the AUGUST 2023. MM/MM tomosynthesis diagnostic LT IMPRESSION: No mammographic evidence of malignancy. ASSESSMENT: BI-RADS BI-RADS 2 - Benign Findings RECOMMENDATION: 1 year F/U Results were provided to the patient at time of visit by the technologist. This patient's information was entered into a reminder system with a target due date for their next mammogram.
== END 2023-03-27 08:39 | disposition home or self-care (01) ==
LOC: HO.MAMMO 08:38
PROVIDERS: PCP Internal Medicine; Visit Provider Internal Medicine
DX: R92.0 Mammographic microcalcification found on diagnostic imaging of breast (principal)
CPT/HCPCS: 77061; 77065

== ENCOUNTER → 2023-03-27 09:00 | Outpatient (BNV) | payer OTHER, SELFPAY | PROVIDERS: PCP Internal Medicine; Visit Provider Radiology Diagnostic Radiology | DX: R92.2 Inconclusive mammogram (principal) | CPT/HCPCS: 77061; 77065 ==

== ENCOUNTER 2023-04-18 09:07 | Outpatient (REF) | payer OTHER, SELFPAY | END 2023-04-18 09:08 | disposition home or self-care (01) | LOC: HO.LNP 09:07 | PROVIDERS: PCP Internal Medicine; Visit Provider Surgery | DX: D18.01 Hemangioma of skin and subcutaneous tissue (principal) | CPT/HCPCS: 11401; 88304; 88305 ==

== ENCOUNTER 2023-04-18 09:07 | Outpatient (AMB) | payer OTHER, SELFPAY ==
[2023-04-18 09:15] VITALS: BP 176/99; PULSE 88; BMI 36.5
--- NOTE | 2023-04-18 09:15 | MHC.OFFVIS ---
Intake Vital Signs 04/18/23 09:15 Height 5 ft 7 in Weight 233 lb BMI 36.5 BP 176/99 H Blood Pressure Location Lt brachial Position Sitting Pulse 88 Intake Visit Reasons: Breast exam, 6 month follow up Intake Note: Patient here for 6m f/u breast exam. Recent mammo done on 03-27-23. Patient c/o: denies pain or discomfort. Coffee Maker Required: No Accompanied by: Self / Same As Patient Allergies oxycodone Allergy (Unknown, Verified 04/18/23 09:17) palpitations Medication List - Last Reconciled 04/18/23 by Dale Gurrola MD atorvastatin 40 mg PO DAILY blood sugar diagnostic (FreeStyle Lite Strips) As directed blood-glucose meter (FreeStyle Lite Meter kit) As directed cholecalciferol (vitamin D3) 50 mcg PO DAILY dulaglutide (Trulicity) 1.5 mg subcut QWEEK empagliflozin (Jardiance) 25 mg PO DAILY glipizide ER 5 mg PO DAILY lisinopril 10 mg PO DAILY metformin ER 1,000 mg (2 x 500 mg) PO BID HPI HPI Comments History of Present Illness Details Patient presents for annual breast surveillance. She had a recent mammogram which was within normal limits. She has no breast issues or complaints. She does self-breast exams. [facility] Medical History Mixed hyperlipidemia Obesity (BMI 30-39.9) Vitamin D deficiency Elevated LFTs Benign essential hypertension Pure hypercholesterolemia Diabetes mellitus Surgical History History of section History of tonsillectomy and adenoidectomy Family History Father Hypertension CVD (cardiovascular disease) Mother Medical history unknown Maternal Grandmother No problems noted. Maternal Grandfather No problems noted. 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 Incidental finding of approximately 1 x 0.5 cm exophytic skin lesion which is increasing in size. Patient would like to have this removed. Office Procedures Excision Details: Risks, benefits, alternatives of excision of the chest wall lesion were reviewed the patient included but not limited to bleeding, infection, recurrence, numbness, pain, scarring the patient was to proceed. All questions answered. After appropriate positioning, patient underwent 1% lidocaine and Betadine prep uneventful tangental excision of a 1 x 0.5 cm exophytic skin lesion of the mid anterior chest. Specimen sent to pathology. Wound base cauterized with silver nitrate followed by bacitracin sterile dressing. Procedure well tolerated. [id number]/arms/legs 0.6-1cm Procedure code (CPT) selection complete Office Meds lidocaine 1 %-epinephrine 1:100,000 injection solution Performing Provider: Dale Gurrola MD Performing Location: [facility] [place] General Surgeons Administered by: Dale Gurrola MD on 04/18/23 09:52 Dose Route Admin Location Dispensed Lot Number Expiration Date [facility] Application Packager 5 mL Infiltration 5 mL Assessment & Plan Assessment & Plan (1) Skin lesion of chest wall: Code(s): L98.9 - Disorder of the skin and subcutaneous tissue, unspecified Plan: Patient will see me approximate 1.5 week weeks time or p.r.n.. She has been given local instructions. Plan Patient will have all bilateral screening mammograms approximate 1 years time. Orders: Orders AMB Excision Today L98.9 - Disorder of the skin and subcutaneous tissue, unspecified Coding Level of Care Code Est Pt Level 5 (37877) Diagnoses Skin lesion of chest wall L98.9 CPT Codes Trunk/Arms/Legs - CPT: 13915-ukusd/arms/legs 0.6-1cm ([id number])
== END 2023-04-18 09:30 | disposition home or self-care (01) ==
PROVIDERS: PCP Internal Medicine; Visit Provider Surgery
DX: L98.9 Disorder of the skin and subcutaneous tissue, unspecified (principal)
CPT/HCPCS: 11401; 99213

== ENCOUNTER 2023-04-27 13:02 | Emergency (ER) | payer OTHER, SELFPAY ==
[2023-04-27] VITALS (7 sets, daily range): BP systolic 116–174; BP diastolic 77–99; PULSE 106–126; RESP 16–19; TEMP 36.6–37.8; O2SAT 96–98; BMI 36.0
--- NOTE | 2023-04-27 13:13 | ED.GENADULT ---
HPI - General Adult General Chief complaint: Dizziness Stated complaint: Lightheaded Dizzy Time Seen by Provider: 04/27/23 21:58 Source: patient Mode of arrival: ambulatory Limitations: no limitations History of Present Illness HPI narrative: Patient with History of hypertension taking lisinopril 10 mg daily, diabetic complaining of lightheaded dizzy with headache behind the eyes with light sensitivity no nausea no vomiting no chest pain or palpitation no abdominal pain no cough or shortness of breath no urinary symptom patient states she been drinking enough Related Data Home Medications Medication Instructions Recorded Confirmed dulaglutide 1.5 mg/0.5 mL 1.5 mg subcut QWEEK 09/21/21 01/30/23 subcutaneous pen injector (Trulicity) atorvastatin 40 mg tablet 40 mg PO DAILY 09/21/22 01/30/23 blood sugar diagnostic (FreeStyle #10 ea 09/21/22 01/30/23 Lite Strips) blood-glucose meter (FreeStyle #1 ea 09/21/22 01/30/23 Lite Meter kit) empagliflozin 25 mg tablet 25 mg PO DAILY 09/21/22 01/30/23 (Jardiance) Previous Rx's Medication Instructions Recorded glipizide 5 mg tablet, extended 5 mg PO DAILY #90 tabs 02/22/21 release 24 hr cholecalciferol (vitamin D3) 50 50 mcg PO DAILY #90 caps 09/01/21 mcg (2,000 unit) capsule lisinopril 10 mg tablet 10 mg PO DAILY #90 tabs 04/25/23 metformin 500 mg tablet,extended 1,000 mg (2 x 500 mg) PO BID #360 04/25/23 release 24 hr tabs mgvckixjze-jtytitludjsxo-qjjojfzr 1 tab PO Q6H PRN haeadace #20 tabs 04/28/23 50 mg-325 mg-40 mg tablet Allergies Allergy/AdvReac Type Severity Reaction Status Date / Time oxycodone Allergy Unknown palpitation Verified 04/27/23 13:11 s Review of Systems Review of Systems: Yes all other systems are reviewed and are negative PMFSH Past Medical History Onset Date is defined in the Problem List Problems that require an onset date and time if occurred within 24 hrs of arrival to the ED Aortic Dissection and Rupture; Neurologic impairment; Cardiopulmonary Arrest; Endotracheal Intubation; Insertion or Replacement of Mechanical Circulatory Assist Device Medical History Mixed hyperlipidemia Obesity (BMI 30-39.9) Vitamin D deficiency Elevated LFTs Benign essential hypertension Pure hypercholesterolemia Diabetes mellitus Surgical History History of section History of tonsillectomy and adenoidectomy Family History Family History Father Hypertension CVD (cardiovascular disease) Mother Medical history unknown Maternal Grandmother No problems noted. Maternal Grandfather No problems noted. 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 Sexual orientation: Straight/Heterosexual Gender identity: Female Cognitive needs: No Hearing needs: No Vision needs: No Physical Exam ED Vital Signs: Vital Signs - 24 hr 04/27/23 13:12 04/27/23 15:28 04/27/23 21:02 Temperature 98 F 98.7 F Pulse Rate 115 H 108 H 109 H Respiratory Rate 19 16 Blood Pressure 174/95 H 171/99 H 141/83 H Pulse Oximetry 96 97 Oxygen Delivery Method Room Air Room Air 04/27/23 21:03 04/27/23 21:04 04/27/23 21:06 Temperature Pulse Rate 115 H 126 H 109 H Respiratory Rate 16 Blood Pressure 134/83 116/77 141/83 H Pulse Oximetry 98 Oxygen Delivery Method Room Air 04/27/23 22:34 04/28/23 00:23 04/28/23 01:56 Temperature 100.1 F 99.0 F Pulse Rate 106 H 107 H 98 Respiratory Rate 16 15 Blood Pressure 129/88 137/80 144/78 H Pulse Oximetry 96 97 Oxygen Delivery Method Room Air Room Air 04/28/23 01:57 04/28/23 01:58 04/28/23 01:59 Temperature 98.8 F Pulse Rate 100 109 H 98 Respiratory Rate 18 Blood Pressure 136/88 130/75 144/78 H Pulse Oximetry 98 Oxygen Delivery Method Room Air BMI result Body Mass Index 36.0 Appearance: Alert. Oriented X3. No acute distress. Orthostatics positive Eyes: PERRLA, No Nystagmus ENT: Pharynx normal. Oral Mucosa moist Neck: Normal inspection. Neck supple. CVS: Normal heart rate and rhythm. Pulses normal. Respiratory: No respiratory distress. Equal air entry bilateral, no wheezing/rales/rhonchi Abdomen: Soft and nontender. Bowel sounds are present, no mass palpable, no CVA tenderness Skin: Skin warm and dry. Normal skin color. Normal skin turgor. Extremities: No lower extremity edema. No calf tenderness Neuro: Oriented X 3. No motor deficit. No sensory deficit.No cerebellar signs , cranial nerves II-XII intact Course Course Course Narrative: RME- 47-year-old female presents for evaluation of lightheadedness and dizziness since earlier this morning. Denies any pain. Plan for labs, EKG, orthostatics. Medications Administered Discontinued Medications Generic Name Dose Route Start Last Admin Trade Name Freq PRN Reason Stop Dose Admin Acetaminophen/Butalbital/Caffeine 1 tab 04/28/23 01:34 04/28/23 01:47 Butalb/Acetamin/Caff 50/325/40 Tablet PO 04/28/23 01:35 1 tab ONCE ONE Administration Sodium Chloride 1,000 mls @ 999 mls/hr 04/27/23 22:50 04/28/23 01:35 Ns IV 04/27/23 23:50 Infused .Q1H1M ONE Infusion Ketorolac Tromethamine 30 mg 04/28/23 01:34 04/28/23 01:47 Ketorolac Tromethamine 30 Mg/Ml Vial IVPUSH 04/28/23 01:35 30 mg ONCE ONE Administration Medical Decision Making Medical Decision Making [facility] Narrative: Patient with significant orthostatic hypotension likely from poor oral intake vitals improved after IV hydration and p.o. fluids feeling much better at this time. Also patient complaining of headache clinically seems like she has a migraine headache Differential Diagnosis Differential Diagnoses: The differential diagnosis associated with the presentation includes Vertigo/dizziness/volume loss Lab Data [facility] Lab Attestation statement: I reviewed the patient's lab results. 04/27/23 13:33 04/27/23 13:33 Labs: Lab Results 04/27/23 04/28/23 Range/Units 13:33 01:42 WBC 10.5 (4.8-10.8) X10*3/uL RBC 4.99 (4.20-5.50) X10*6/uL Hgb 13.6 (12.0-16.0) g/dl Hct 40.6 (37.0-47.0) % MCV 81.4 (80.0-98.0) fL MCH 27.3 (27.0-33.0) pg MCHC 33.5 (31.0-35.0) g/dl RDW 12.6 (11.0-16.0) % Plt Count 357 (160-400) X10*3/uL MPV 9.4 (9.4-12.3) fL Immature Gran % (Auto) 0.4 (0.0-0.4) % Neut % (Auto) 79.1 H (45-73) % Lymph % (Auto) 14.6 L (20-40) % [place] % (Auto) 5.1 (2-11) % Eos % (Auto) 0.7 (0-4) % Baso % (Auto) 0.1 (0-2) % Lymph # (Auto) 1.5 (1.2-4.9) X10*3/uL [place] # (Auto) 0.5 (0.1-1.2) X10*3/uL Eos # (Auto) 0.1 (0.0-0.4) X10*3/uL Baso # (Auto) 0.0 (0.0-0.2) X10*3/uL Abs Immat Gran (auto) 0.04 H (0.00-0.03) X10*3/uL Absolute Neuts (auto) 8.3 (2.0-8.3) x10*3/uL Absolute Nucleated RBC 0.000 (0.0-0.012) X10*3/uL Nucleated RBC % (auto) 0.0 (0.0-0.2) /100WBC Sodium 138 (135-145) mmol/L Potassium 3.8 (3.3-5.1) mmol/L Chloride 105 (96-108) mmol/L Carbon Dioxide 24 (22-29) mmol/L Anion Gap 13 (12-20) BUN 17 H (9-16) mg/dL Creatinine 0.92 (0.5-1.4) mg/dL Estim Creat Clear Calc 93.8 Estimated GFR > 60 Random Glucose 222 H (60-115) mg/dL Calcium 10.2 D (8.4-10.2) mg/dL Total Bilirubin 0.7 (0.0-1.0) mg/dL AST 16 (5-31) U/L ALT 21 (0-31) U/L Alkaline Phosphatase 92 (39-117) U/L Total Protein 7.8 (6.5-8.0) g/dL Albumin 4.3 (3.5-5.0) g/dL Urine Color Yellow Urine Appearance Cloudy Urine pH 5.0 (5.0-9.0) Ur Specific [place] >= 1.030 H (1.005-1.025) Urine Protein Negative (Neg-Trace) mg/dL Urine Glucose (UA) >=1000 H (Negative) mg/dL Urine Ketones 15 (Negative) mg/dL Urine Blood Negative (Negative) Urine Nitrite Negative (Negative) Ur Leukocyte Esterase Negative (Negative) Urine RBC 0-2 (0-2) /HPF Urine WBC 0-5 (0-5) /HPF Ur Squamous Epith Cells 6-10 (0-2) /HPF Urine Bacteria 3+ (None Seen) Hyaline Casts 0-2 (0-2) /LPF COVID-19 (KATE) Negative (Negative) COVID-19 Clin Com See Note Influenza Type A (IAN) Negative (Negative) Influenza Type B (IAN) Negative (Negative) Influenza A & B Note See Note Independent Interpretation I performed an independent interpretation of an: EKG Interpretation: Sinus tachycardia LVH normal interval normal axis no acute ST T wave changes no acute ischemia Discharge Plan Discharge Clinical Impression: Orthostatic hypotension, Headache, migraine Patient Disposition: Home, Self-Care Instructions: Migraine Headache (ED), Dizziness (ED) Additional Instructions: Drink plenty of fluids Check your blood pressure before taking blood pressure medication if it is lower than 130/80 do not take the medicine Medicine from migraine headache as prescribed Follow with PCP Prescriptions: New ggihyqducc-nlipxnizvwtic-hvmx 50-325-40 mg tablet 1 tab PO Q6H PRN (Reason: haeadace) Qty: 20 0RF No Action glipizide 5 mg tablet extended release 24hr 5 mg PO DAILY Qty: 90 0RF cholecalciferol (vitamin D3) 50 mcg (2,000 unit) capsule 50 mcg PO DAILY Qty: 90 3RF metformin 500 mg tablet extended release 24 hr 1,000 mg PO BID Qty: 360 1RF lisinopril 10 mg tablet 10 mg PO DAILY Qty: 90 1RF Trulicity 1.5 mg/0.5 mL pen injector 1.5 mg subcut QWEEK atorvastatin 40 mg tablet 40 mg PO DAILY (DME) FreeStyle Lite Strips Strip See Rx Instructions .ROUTE QAM Qty: 10 Rx Instructions: As directed (DME) blood-glucose meter [FreeStyle Lite Meter] Kit See Rx Instructions .ROUTE DIRECTED Qty: 1 Rx Instructions: As directed Jardiance 25 mg tablet 25 mg PO DAILY
--- NOTE | 2023-04-27 13:14 | ECG_ITS ---
Test Reason : chest pain Blood Pressure : / mmHG Vent. Rate : 110 BPM Atrial Rate : 110 BPM P-R Int : 132 ms QRS Dur : 096 ms QT Int : 334 ms P-R-T Axes : 028 -01 071 degrees QTc Int : 452 ms Sinus tachycardia Left ventricular hypertrophy with repolarization abnormality ( R in aVL , [place] product , Romhilt-Kaminski ) Abnormal ECG No previous ECGs available Referred By: Patric Tilley Electronically Signed By:ERI KAPADIA
[2023-04-27 13:38] LABS: MANUAL DIFF FLAG NO
[2023-04-27 13:39] LABS: Basophils Percent Auto 0.1 % (0-2); Eosinophils Absolute Auto 0.1 X10*3/uL (0.0-0.4); Eosinophils Percent Auto 0.7 % (0-4); Hematocrit 40.6 % (37.0-47.0); Hemoglobin 13.6 g/dl (12.0-16.0); Imm Gran Abs Auto 0.04 X10*3/uL (0.00-0.03); Imm Gran Pct Auto 0.4 % (0.0-0.4); Lymphocytes Absolute Auto 1.5 X10*3/uL (1.2-4.9); Lymphocytes Percent Auto 14.6 % (20-40); Mean Corpuscular HGB Conc 33.5 g/dl (31.0-35.0); Mean Corpuscular Hemoglobin 27.3 pg (27.0-33.0); Mean Corpuscular Volume 81.4 fL (80.0-98.0); Mean Platelet Volume 9.4 fL (9.4-12.3); Monocytes Absolute Auto 0.5 X10*3/uL (0.1-1.2); Monocytes Percent Auto 5.1 % (2-11); Neutrophils Absolute Auto 8.3 x10*3/uL (2.0-8.3); Neutrophils Percent Auto 79.1 % (45-73); Platelet Count 357 X10*3/uL (160-400); Red Blood Count 4.99 X10*6/uL (4.20-5.50); Red Cell Distribution Width 12.6 % (11.0-16.0); White Blood Count 10.5 X10*3/uL (4.8-10.8)
[2023-04-27 13:56] LABS: COVID-19 Test Negative (Negative); IDNOW Serial# 08D9AD1C; IDNOW Serial# 152EDE1D; Influenza A Negative (Negative); Influenza B2 Negative (Negative)
[2023-04-27 13:57] LABS: Alanine Aminotransferase 21 U/L (0-31); Albumin Level 4.3 g/dL (3.5-5.0); Alkaline Phosphatase 92 U/L (39-117); Anion Gap 13 (12-20); Aspartate Amino Transferase 16 U/L (5-31); Bilirubin Total 0.7 mg/dL (0.0-1.0); Blood Urea Nitrogen 17 mg/dL (9-16); Calcium 10.2 mg/dL (8.4-10.2); Carbon Dioxide 24 mmol/L (22-29); Chloride 105 mmol/L (96-108); Creatinine Clr Calc Pharmacy 93.8; Estimated Glomerular Filt Rate > 60; Glucose Random 222 mg/dL (60-115); Potassium 3.8 mmol/L (3.3-5.1); Sodium 138 mmol/L (135-145); Total Protein 7.8 g/dL (6.5-8.0)
--- NOTE | 2023-04-27 21:03 | PC.NURSE ---
this rn assumed care of pt from waiting room @ 2100. pt mother at bedside. lights dimmed as pt reports 10/17 headache. pt awaiting to be seen by ED provider
--- NOTE | 2023-04-27 22:38 | PC.NURSE ---
this rn made dr buitrago aware of temp of 100.1 orally awaiting new orders
[2023-04-27] MEDS: 0.9 % Sodium Chloride 1,000 ML 999 ML IV (23:07)
[2023-04-28 00:23] VITALS: BP 137/80; PULSE 107; RESP 15; TEMP 37.2; O2SAT 97
--- NOTE | 2023-04-28 01:08 | PC.NURSE ---
ivf infusing pt aware that needs to provide urine sample
[2023-04-28] MEDS: Ketorolac Tromethamine 30 MG/ML VIAL IVPUSH (01:47)
[2023-04-28] MEDS: Butalb/Acetamin/Caff 50/325/40 TABLET 1 TAB PO (01:47)
[2023-04-28 01:55] LABS: Appearance Urine Cloudy; Color Urine Yellow; Glucose Urine UA >=1000 mg/dL (Negative); Leukocyte Esterase Urine Negative (Negative); Nitrite Urine Negative (Negative); Specific Gravity - Urine >= 1.030 (1.005-1.025); UMIC TRIGGER UACC YES; Urine Blood Negative (Negative); Urine Ketones 15 mg/dL (Negative); Urine Protein Negative (Neg-Trace)
[2023-04-28 01:56] VITALS: BP 144/78; PULSE 98
[2023-04-28 01:57] VITALS: BP 136/88; PULSE 100
[2023-04-28 01:58] VITALS: BP 130/75; PULSE 109
[2023-04-28 01:59] VITALS: BP 144/78; PULSE 98; RESP 18; TEMP 37.1; O2SAT 98
[2023-04-28 02:16] LABS: Bacteria Urine 3+ (None Seen); Hyaline Casts Urine 0-2 /LPF (0-2); RBC Urine 0-2 /HPF (0-2); WBC Urine 0-5 /HPF (0-5)
--- NOTE | 2023-04-28 02:27 | PC.NURSE ---
pt ambulatory at discharge. vss. pt calm and cooperative. iv removed at discharge. pt provided with discharge packet. pt verbalized understanding of discharge plan
== END 2023-04-28 02:30 | disposition home or self-care (01) ==
PROVIDERS: Physician Assistant; Emergency Provider Internal Medicine; PCP Internal Medicine
DX: G43.909 Migraine, unspecified, not intractable, without status migrainosus (principal); R42 Dizziness and giddiness; I95.1 Orthostatic hypotension; R07.89 Other chest pain; Z11.52 Encounter for screening for COVID-19; Z20.828 Contact with and (suspected) exposure to other viral communicable diseases; Z79.899 Other long term (current) drug therapy
CPT/HCPCS: 36415; 80053; 81001; 81003; 85025; 87502; 87635; 93005; 96361; 96374; 99284; 99285; J1885

== ENCOUNTER → 2023-04-27 13:14 | Outpatient (BNV) | payer OTHER, SELFPAY | PROVIDERS: PCP Internal Medicine; Visit Provider Internal Medicine | DX: R00.0 Tachycardia, unspecified (principal) | CPT/HCPCS: 93010 ==

== ENCOUNTER 2023-05-15 17:31 | Inpatient (IN) | payer OTHER, SELFPAY ==
--- NOTE | ~2023-05-15 | CT_ITS ---
EXAMINATION: CT head for stroke CLINICAL INFORMATION: Reason for Exam L sided droop COMPARISON: None. TECHNIQUE: Contiguous axial imaging was performed from the skull base to vertex without intravenous contrast. Sagittal and coronal reformatted images were obtained. This CT examination was performed using dose optimization techniques as appropriate, variously including the following: * Automated exposure control * Adjustment of mA and/or kV according to patient size (this includes techniques or standardized protocols for targeted exams where dose is matched to indication/reason for exam; i.e. extremities or head) Use of iterative reconstruction technique DLP: 663.26 mGy-cm mGy-cm FINDINGS: There is no evidence of acute intracranial hemorrhage. No mass-effect or ventricular shift is noted. No acute, territorial loss of ramsey-white differentiation. The ventricles and sulci are appropriate in size and configuration for the patient's stated age. No depressed calvarial fracture. The paranasal sinuses are well-aerated. The mastoid air cells are clear. CT/CT head for stroke IMPRESSION: No acute intracranial hemorrhage or territorial loss of ramsey-white differentiation. Results discussed with JES Walsh at 18:23 on 05/15/2023.
--- NOTE | ~2023-05-15 | MR_ITS ---
MR BRAIN WITHOUT CONTRAST CLINICAL INFORMATION: Left-sided facial droop. COMPARISON: CTA head and neck and head CT 05/15/2023 TECHNIQUE: MRI of the brain was obtained using routine sequences without contrast. FINDINGS: There is no hydrocephalus, extra-axial surface collection, or herniation. No significant parenchymal signal abnormality. The major flow voids at the skull base are preserved. There is no acute infarct on diffusion-weighted imaging. There is no intracranial hemorrhage on the gradient recalled echo acquisition. The midline structures are normal. The cerebellar tonsils are normally positioned. The cerebellum and brainstem are normal. The craniocervical junction is normal. Osseous marrow signal intensity is homogenous. The visualized soft tissues are unremarkable. MR/MR head/brain wo con IMPRESSION: No acute intracranial findings. No acute infarcts.
--- NOTE | ~2023-05-15 | CT_ITS ---
EXAMINATION: CT ANGIOGRAM HEAD CT ANGIOGRAM NECK CLINICAL INFORMATION: Reason for Exam L sided facial droop COMPARISON: Same-day CT head TECHNIQUE: Initial noncontrast edger saw operator imaging of the head and neck was performed. Comparison is made with noncontrast head CT from earlier today. Test bolus sequences followed by intravenous administration 70 mL of Omnipaque 350. Helical imaging was performed in the axial plane from the aortic arch to the skull vertex. Delayed postcontrast imaging of the head was also performed. The data was processed at the vascular ultrasound technologist's workstation for generation of MIP sequences. Angled MIPs and volume rendered reformatted images were also generated at an offline 3D workstation. Stenoses are assessed in accordance with Stephen et al. Quantification of Carotid Stenosis on CT Angiography. AJR 2006. 27(1):13-19. This CT examination was performed using dose optimization techniques as appropriate, variously including the following: *Automated exposure control *Adjustment of mA and/or kV according to patient size (this includes techniques or standardized protocols for targeted exams where dose is matched to indication/reason for exam; i.e. extremities or head) *Use of iterative reconstruction technique DLP: 1488.07 mGy-cm mGy-cm FINDINGS: CT HEAD: No abnormal intracranial enhancement. Please see separately dictated CT scan of the head for additional findings. CTA HEAD: Anterior circulation: Right internal carotid artery: No hemodynamically significant stenosis. Infundibular origin to a diminutive posterior commuting artery. Right middle cerebral artery: No hemodynamically significant stenosis. Right anterior cerebral artery: No hemodynamically significant stenosis. Left internal carotid artery: No hemodynamically significant stenosis. Left middle cerebral artery: No hemodynamically significant stenosis. Left anterior cerebral artery: No hemodynamically significant stenosis. Posterior circulation: Right vertebral artery: Dominant. Patent. Left vertebral artery: Nondominant. Patent. Basilar artery: Filling defect in the superior basilar artery ([id number]) Right posterior cerebral artery: No hemodynamically significant stenosis. Left posterior cerebral artery: No hemodynamically significant stenosis. No high flow vascular malformation or significant aneurysmal dilatation is visualized. The major dural venous sinuses are grossly within normal limits given arterial technique. Probable varix along the right middle cranial fossa. CTA NECK: Aortic arch: Normal anatomy. Right common carotid artery: No hemodynamically significant stenosis. Right proximal internal carotid artery: No hemodynamically significant stenosis. Right mid/distal internal carotid artery: No hemodynamically significant stenosis. Left common carotid artery: No hemodynamically significant stenosis. Left proximal internal carotid artery: No hemodynamically significant stenosis. Left mid/distal internal carotid artery: No hemodynamically significant stenosis. Right vertebral artery: No hemodynamically significant stenosis. Left vertebral artery: The V1 segment is suboptimally assessed secondary to adjacent dense venous contrast. A dominant. The remaining cervical course is without flow-limiting stenosis. CT NECK: Rounded hyperdensity measuring up to 1.6 cm in craniocaudal dimension along the anterior strap muscle inferior to the hyoid bone. CT/CT angio head neck stroke IMPRESSION: CTA NECK: No hemodynamically significant stenosis. Rounded hyperdense/enhancing soft tissue along the strap muscles inferior to the hyoid bone may represent ectopic thyroid tissue. Correlation with thyroid ultrasound is suggested. CTA HEAD: No proximal vessel occlusion. Linear filling defect in the superior basilar artery may represent a short segment fenestration, however no prior imaging is available to assess chronicity. Clinical correlation/attention on follow-up is recommended. Results discussed with JES Walsh at 18:23 on 05/15/2023.
--- NOTE | 2023-05-15 17:33 | ED_ITS ---
HPI - General Adult General Chief complaint: Neuro Symptoms/Deficit Stated complaint: left side face is numb Time Seen by Provider: 05/15/23 18:14 Source: patient Mode of arrival: ambulatory Limitations: no limitations History of Present Illness HPI narrative: Patient is 47 years old with history of hypertension fairly compliant to her medication which she took earlier today noticed headache around noon time with left-sided facial numbness drooping of the left eye unable to close your eyes no other weakness no speech problem patient's blood pressure usually well controlled in 140s/80s Related Data Home Medications Medication Instructions Recorded Confirmed dulaglutide 1.5 mg/0.5 mL 1.5 mg subcut MO 09/21/21 05/15/23 subcutaneous pen injector (Trulicity) atorvastatin 40 mg tablet 40 mg PO DAILY 09/21/22 05/15/23 blood sugar diagnostic (FreeStyle #10 ea 09/21/22 01/30/23 Lite Strips) blood-glucose meter (FreeStyle #1 ea 09/21/22 01/30/23 Lite Meter kit) empagliflozin 25 mg tablet 25 mg PO DAILY 09/21/22 05/15/23 (Jardiance) pioglitazone 15 mg tablet 15 mg PO DAILY 05/15/23 05/15/23 Previous Rx's Medication Instructions Recorded cholecalciferol (vitamin D3) 50 50 mcg PO DAILY #90 caps 09/01/21 mcg (2,000 unit) capsule lisinopril 10 mg tablet 10 mg PO DAILY #90 tabs 04/25/23 metformin 500 mg tablet,extended 1,000 mg (2 x 500 mg) PO BID #360 04/25/23 release 24 hr tabs Allergies Allergy/AdvReac Type Severity Reaction Status Date / Time oxycodone Allergy Unknown palpitation Verified 04/27/23 13:11 s Review of Systems 2 Review of Systems: Yes all other systems are reviewed and are negative [facility] Past Medical History Medical History Mixed hyperlipidemia Obesity (BMI 30-39.9) Vitamin D deficiency Elevated LFTs Benign essential hypertension Pure hypercholesterolemia Diabetes mellitus Surgical History History of section History of tonsillectomy and adenoidectomy Family History Family History Father Hypertension CVD (cardiovascular disease) Mother Medical history unknown Maternal Grandmother No problems noted. Maternal Grandfather No problems noted. 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 Oriented X3. No acute distress. Eyes: PERRLA, No Nystagmus ENT: Pharynx normal. Oral Mucosa moist Neck: Normal inspection. Neck supple. CVS: Normal heart rate and rhythm. Pulses normal. Respiratory: No respiratory distress. Equal air entry bilateral, no wheezing/rales/rhonchi Abdomen: Soft and nontender. Bowel sounds are present, no mass palpable, no CVA tenderness Skin: Skin warm and dry. Normal skin color. Normal skin turgor. Extremities: No lower extremity edema. No calf tenderness Neuro: Oriented X 3. No motor deficit. No sensory deficit.No cerebellar signs , left-sided facial asymmetry with drooping of the angle of the mouth partial weakness of the left eyelid without involvement of the forehead NIH Stroke Scale Internal: Initial- Upon Arrival Level of Consciousness: Alert Level of Consciousness Questions: Answers both questions correctly Level of Consciousness Commands: Performs both tasks correctly Best Gaze: Normal Visual: No visual loss Facial Palsy: Partial paralysis Motor Arm (Right): No drift Motor Arm (Left): No drift Motor Leg (Right): No drift Motor Leg (Left): No drift Limb Ataxia: Absent Sensory: Normal Best Language: No aphasia Dysarthia: Normal Extinction and Inattention: No abnormality Score: 2 Course Course Course Narrative: This is an RME: Additional HPI, ROS, PE not included below will be deferred to primary provider. 47 year old female presents with left-sided facial droop, hypertension, headache that started at noon. Patient reports she took all her blood pressure medications her blood pressure in triage is 230/111. She is noted to have a significant left-sided facial droop. Able to wrinkle her forehead. Clonidine ordered. Stroke protocol initiated. submarine element coordinator rose [id number] Stroke alert announced. Patient to go to room 19. Charge nurse aware. Slight delay in obtaining CT due to CT being used when patent came in, Medications Administered Generic Name Dose Route Start Last Admin Trade Name Freq PRN Reason Stop Dose Admin Enoxaparin Sodium 40 mg 05/15/23 22:00 05/15/23 23:14 Enoxaparin Sodium 40 Mg/0.4 Ml Syringe SUBCUT 40 mg Q24H JO Administration Insulin Glargine 10 unit 05/15/23 22:15 05/15/23 23:15 Insulin Glargine,Hum.Rec.Anlog 100 Unit/Ml 10 Ml Vial SUBCUT 10 unit BEDTIME JO Administration Sodium Chloride 3 ml 05/16/23 00:00 05/15/23 23:15 0.9 % Sodium Chloride Flush 3 Ml Syringe IVFLUSH 3 ml QSHIFT JO Administration Discontinued Medications Generic Name Dose Route Start Last Admin Trade Name Freq PRN Reason Stop Dose Admin Aspirin 324 mg 05/15/23 19:37 05/15/23 20:05 Aspirin 81 Mg Tab.Chew PO 05/15/23 19:38 324 mg ONCE ONE Administration Insulin Human Lispro 10 unit 05/15/23 23:00 05/15/23 23:15 Insulin Lispro 100 Unit/Ml 3 Ml Vial SUBCUT 05/15/23 23:01 10 unit ONCE ONE Administration Labetalol HCl 20 mg 05/15/23 18:15 05/15/23 18:24 Labetalol Hcl 100 Mg/20 Ml Vial IVPUSH 05/15/23 18:16 20 mg ONCE ONE Administration Labetalol HCl 10 mg 05/15/23 19:38 05/15/23 19:53 Labetalol Hcl 100 Mg/20 Ml Vial IVPUSH 05/15/23 19:39 10 mg ONCE ONE Administration Prednisone 60 mg 05/15/23 18:15 05/15/23 18:23 Prednisone 20 Mg Tablet PO 05/15/23 18:16 60 mg ONCE ONE Administration Valacyclovir HCl 1,000 mg 05/15/23 18:15 05/15/23 18:24 Valacyclovir Hcl 1,000 Mg Tablet PO 05/15/23 18:16 1,000 mg ONCE ONE Administration Medical Decision Making Medical Decision Making [facility] Narrative: Patient with left facial palsy sparing the forehead with accelerated hypertension case discussed Dr. Ray possible patient has isolated CVA/bells palsy will start on aspirin plan for MRI patient not a case for TNK as symptoms are very mild with elevated blood pressure and no other deficit Differential Diagnosis Differential Diagnoses: The differential diagnosis associated with the presentation includes Nuno's palsy/CVA Admission/Observation Consideration of admission/observation: Escalation of care including admission/observation considered Consult Healthcare Provider Management of the patient was discussed with: Hospitalist Lab Data [facility] Lab Attestation statement: I reviewed the patient's lab results. 05/15/23 18:59 05/15/23 18:59 Labs: Lab Results 05/15/23 Range/Units 18:59 WBC 10.8 (4.8-10.8) X10*3/uL RBC 4.43 (4.20-5.50) X10*6/uL Hgb 12.2 (12.0-16.0) g/dl Hct 35.8 L (37.0-47.0) % MCV 80.8 (80.0-98.0) fL MCH 27.5 (27.0-33.0) pg MCHC 34.1 (31.0-35.0) g/dl RDW 12.6 (11.0-16.0) % Plt Count 346 (160-400) X10*3/uL MPV 9.6 (9.4-12.3) fL Immature Gran % (Auto) 0.3 (0.0-0.4) % Neut % (Auto) 59.3 (45-73) % Lymph % (Auto) 33.5 (20-40) % Rich % (Auto) 5.4 (2-11) % Eos % (Auto) 1.2 (0-4) % Baso % (Auto) 0.3 (0-2) % Lymph # (Auto) 3.6 (1.2-4.9) X10*3/uL Rich # (Auto) 0.6 (0.1-1.2) X10*3/uL Eos # (Auto) 0.1 (0.0-0.4) X10*3/uL Baso # (Auto) 0.0 (0.0-0.2) X10*3/uL Abs Immat Gran (auto) 0.03 (0.00-0.03) X10*3/uL Absolute Neuts (auto) 6.4 (2.0-8.3) x10*3/uL Absolute Nucleated RBC 0.000 (0.0-0.012) X10*3/uL Nucleated RBC % (auto) 0.0 (0.0-0.2) /100WBC ESR 33 H (0-20) MM/HR PT 11.8 (11.1-13.3) SEC INR 1.0 (0.9-1.1) Sodium 135 (135-145) mmol/L Potassium 3.8 (3.3-5.1) mmol/L Chloride 101 (96-108) mmol/L Carbon Dioxide 24 (22-29) mmol/L Anion Gap 14 (12-20) BUN 17 H (9-16) mg/dL Creatinine 1.08 (0.5-1.4) mg/dL Estim Creat Clear Calc 80.8 Estimated GFR 54 Random Glucose 298 H (60-115) mg/dL Calcium 9.1 D (8.4-10.2) mg/dL Magnesium 1.9 (1.6-2.6) mg/dL Total Bilirubin 0.3 (0.0-1.0) mg/dL AST 19 (5-31) U/L ALT 18 (0-31) U/L Alkaline Phosphatase 81 (39-117) U/L Total Protein 7.2 (6.5-8.0) g/dL Albumin 3.7 (3.5-5.0) g/dL Independent Interpretation I performed an independent interpretation of an: CT Scan Radiology Impression Discussion of test interpretation with radiology: I have reviewed the radiologist's reading. Critical Care Time Critical Care Time Critical Care Time: Yes Total Critical Care Time: 50 Attestation: The patient was critically ill with a high probability of imminent or life threatening deterioration. I spent greater than 55???minutes of discontinuous time evaluating the patient,delivering critical care at the bedside, discussing and evaluating pertinent data with consultants. Critical care time does not include time spent performing separately billable procedures or teaching. Total time spent performing critical care was ?50??minutes. Discharge Plan Discharge Clinical Impression: Acute CVA (cerebrovascular accident) Patient Disposition: Admitted As Inpatient
[2023-05-15 17:36] VITALS: BP 231/118; PULSE 104; RESP 18; TEMP 36.9; O2SAT 99; BMI 36.7
[2023-05-15 18:17] VITALS: BP 191/106; PULSE 96; RESP 18
[2023-05-15] MEDS: predniSONE 20 MG TABLET 60 MG PO (18:23)
[2023-05-15] MEDS: valACYclovir HCL 1,000 MG TABLET 1000 MG PO (18:24)
[2023-05-15] MEDS: Labetalol HCL 100 MG/20 ML VIAL 20 MG IVPUSH (18:24)
[2023-05-15 19:06] LABS: MANUAL DIFF FLAG NO
[2023-05-15 19:08] LABS: Basophils Percent Auto 0.3 % (0-2); Eosinophils Absolute Auto 0.1 X10*3/uL (0.0-0.4); Eosinophils Percent Auto 1.2 % (0-4); Hematocrit 35.8 % (37.0-47.0); Hemoglobin 12.2 g/dl (12.0-16.0); Imm Gran Abs Auto 0.03 X10*3/uL (0.00-0.03); Imm Gran Pct Auto 0.3 % (0.0-0.4); Lymphocytes Absolute Auto 3.6 X10*3/uL (1.2-4.9); Lymphocytes Percent Auto 33.5 % (20-40); Mean Corpuscular HGB Conc 34.1 g/dl (31.0-35.0); Mean Corpuscular Hemoglobin 27.5 pg (27.0-33.0); Mean Corpuscular Volume 80.8 fL (80.0-98.0); Mean Platelet Volume 9.6 fL (9.4-12.3); Monocytes Absolute Auto 0.6 X10*3/uL (0.1-1.2); Monocytes Percent Auto 5.4 % (2-11); Neutrophils Absolute Auto 6.4 x10*3/uL (2.0-8.3); Neutrophils Percent Auto 59.3 % (45-73); Platelet Count 346 X10*3/uL (160-400); Red Blood Count 4.43 X10*6/uL (4.20-5.50); Red Cell Distribution Width 12.6 % (11.0-16.0); White Blood Count 10.8 X10*3/uL (4.8-10.8)
[2023-05-15 19:14] LABS: Prothrombin Time 11.8 SEC (11.1-13.3)
[2023-05-15 19:20] VITALS: BP 184/98; PULSE 91
--- NOTE | 2023-05-15 19:22 | PC.NURSE ---
pt alert and oriented. reporting left sided droop and 5/10 headache which radiates down left sided and back of neck. Symptoms started about noon today. IV inserted in CT scan. labs drawn by tech. nursing swallow pass - PO and IV meds given per MAR> pt hypertensive, aware. NSR on tele.
[2023-05-15 19:29] LABS: Alanine Aminotransferase 18 U/L (0-31); Albumin Level 3.7 g/dL (3.5-5.0); Alkaline Phosphatase 81 U/L (39-117); Anion Gap 14 (12-20); Aspartate Amino Transferase 19 U/L (5-31); Bilirubin Total 0.3 mg/dL (0.0-1.0); Blood Urea Nitrogen 17 mg/dL (9-16); Calcium 9.1 mg/dL (8.4-10.2); Carbon Dioxide 24 mmol/L (22-29); Chloride 101 mmol/L (96-108); Creatinine Clr Calc Pharmacy 80.8; Estimated Glomerular Filt Rate 54; Glucose Random 298 mg/dL (60-115); Magnesium 1.9 mg/dL (1.6-2.6); Potassium 3.8 mmol/L (3.3-5.1); Sodium 135 mmol/L (135-145); Total Protein 7.2 g/dL (6.5-8.0)
--- NOTE | 2023-05-15 19:37 | PC.NURSE ---
recheck bp 184/98 dr buitrago made aware no new orders at this time
[2023-05-15 19:47] LABS: Erythrocyte Sedimentation Rate 33 MM/HR (0-20)
[2023-05-15] MEDS: Labetalol HCL 100 MG/20 ML VIAL 10 MG IVPUSH (19:53)
--- NOTE | 2023-05-15 20:04 | PC.NURSE ---
bedside swallow eval performed. pt PASSED
[2023-05-15] MEDS: Aspirin 81 MG TAB.CHEW 324 MG PO (20:05)
--- NOTE | 2023-05-15 20:09 | PHA.MEDREC ---
Pharmacy Consult ? Medication Reconciliation Pharmacy has completed the medication reconciliation. Patient reported medications. Reports has not take Trulicity in a little while because it is on backorder at the pharmacy. Patient has not start Actos yet, it is a new prescription. Magaly Dawson, PharmD
--- NOTE | 2023-05-15 21:20 | P.HPHOSP_ITS ---
History of Present Illness Date of Service: 05/15/23 Attending physician on admission: Angelica Garcia Chief Complaint: facial droop 47-year-old female with hypertension, hyperlipidemia, uncontrolled hym-pyzqzvj-ptrtnrtmc type 2 diabetes who is severely obese with BMI > 36 presented to the ED earlier today for evaluation of left-sided facial droop. She states earlier this morning at breakfast she felt her left eye was not closing as well as the right but denies any visual changes. Around noon, her son noticed that the left side of her face was drooping. She states the left shoulder was also tingly. Denies any slurred speech, dysphagia, visual changes, focal weakness or other paresthesias, gait/balance disturbance, word-finding difficulty. She has had a left-sided occipital headache. Denies any known tick bites. She has been checking her blood pressure at home and states it is typically uncontrolled with systolic pressures in the 140s though reports compliance with antihypertensive agents. On arrival, patient hypertensive to 231/118 given dose of labetalol with blood pressure 184/98 on admission. Vital signs otherwise stable. Hematology studies unremarkable. BUN/creatinine within normal limits, electrolyte levels normal. Glucose 298. Head CT negative for any acute intracranial abnormality. CTA head/neck negative for any hemodynamically significant stenosis or large vessel occlusion. 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 Incidentally seen is a rounded hypodense/enhancing soft tissue along the strap muscles inferior to the hyoid bone possibly representing ectopic thyroid tissue, recommend thyroid ultrasound. In the ED, given 324 mg aspirin, 20 mg labetalol, 10 mg labetalol, 60 mg prednisone, 1 g Valtrex. ED discussed case with Neurology recommending admission for possible stroke. Review of Systems 2 Review of Systems: General: No fevers, malaise, unintentional weight loss HEENT: No blurred vision, diplopia. No sore throat, nasal congestion, rhinorrhea, sinus pain, ear pain Cardiovascular: No chest pain, palpitations, or leg edema Respiratory: No shortness of breath, wheezing, cough GI: No abdominal pain, nausea, vomiting, diarrhea, constipation, melena, hematochezia : No dysuria, hematuria, increased urinary frequency, decreased urinary output MSK: No myalgia, back pain Neuro: No headaches, weakness, paresthesias. +facial weakness Skin: No rashes or lesions COUNT INCLUDES [facility] Medical History Mixed hyperlipidemia Obesity (BMI 30-39.9) Vitamin D deficiency Elevated LFTs Benign essential hypertension Pure hypercholesterolemia Diabetes mellitus Family History Father Hypertension CVD (cardiovascular disease) Mother Medical history unknown Maternal Grandmother No problems noted. Maternal Grandfather No problems noted. 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 Sexual orientation: Straight/Heterosexual Gender identity: Female Cognitive needs: No Hearing needs: No Vision needs: No Meds Allergies Allergy/AdvReac Type Severity Reaction Status Date / Time oxycodone Allergy Unknown palpitation Verified 04/27/23 13:11 s Active Medications: Current Medications Acetaminophen (Acetaminophen 325 Mg Tablet) 650 mg PO Q6H PRN PRN Reason: Pain, Mild (Pain Scale 1-3) Aspirin (Aspirin Enteric Coated 81 Mg Tablet.) 81 mg PO DAILY [facility] Enoxaparin Sodium (Enoxaparin Sodium 40 Mg/0.4 Ml Syringe) 40 mg SUBCUT Q24H JO Ondansetron HCl (Ondansetron Hcl 4 Mg/2 Ml Vial) 4 mg IVPUSH Q8H PRN PRN Reason: Nausea and Vomiting Senna (Sennosides 8.6 Mg Tablet) 17.2 mg PO BEDTIME PRN PRN Reason: Constipation Sodium Chloride (0.9 % Sodium Chloride Flush 3 Ml Syringe) 3 ml IVFLUSH QSHIFT [facility] Home Medications Medication Instructions Recorded Confirmed Last Taken Type dulaglutide 1.5 mg/0.5 mL 1.5 mg subcut MO 09/21/21 05/15/23 Unknown History subcutaneous pen injector (Trulicity) atorvastatin 40 mg tablet 40 mg PO DAILY 09/21/22 05/15/23 05/15/23 History blood sugar diagnostic (FreeStyle #10 ea 09/21/22 01/30/23 Unknown History Lite Strips) blood-glucose meter (FreeStyle #1 ea 09/21/22 01/30/23 Unknown History Lite Meter kit) empagliflozin 25 mg tablet 25 mg PO DAILY 09/21/22 05/15/23 05/15/23 History (Jardiance) pioglitazone 15 mg tablet 15 mg PO DAILY 05/15/23 05/15/23 Unknown History Physical Exam 2 Vital Signs and Narrative: Vital Signs: Last Vital Signs Temp 98.5 F 05/15/23 17:36 Pulse 91 05/15/23 19:20 Resp 18 05/15/23 18:17 BP 184/98 H 05/15/23 19:20 Pulse Ox 99 05/15/23 17:36 O2 Del Method Room Air 05/15/23 17:36 BMI result Body Mass Index 36.7 Constitutional - Awake and Alert, No apparent distress Eyes - PERRLA, EOMI Cardiovascular - S1S2, RRR, No edema Respiratory - Normal lung expansion, Normal respiratory effort, No respiratory distress, CTA bilaterally Gastrointestinal - NT / ND; +BS; No rebound or guarding Extremities - no calf tenderness bilaterally, no swelling Skin - Warm/Dry Neurological - Alert & oriented x3, left sided facial palsy involving lower face, eye, but sparing forehead, tongue deviation to R, otherwise CN II-XII in tact, 5/5 strength BUE and BLE Psychological - Appropriate affect Results Labs 05/15/23 18:59 05/15/23 18:59 Labs: Laboratory Results - last 24 hr 05/15/23 18:59 MCV 80.8 MCH 27.5 MCHC 34.1 RDW 12.6 Plt Count 346 MPV 9.6 Immature Gran % (Auto) 0.3 Neut % (Auto) 59.3 Lymph % (Auto) 33.5 [place] % (Auto) 5.4 Eos % (Auto) 1.2 Baso % (Auto) 0.3 Lymph # (Auto) 3.6 [place] # (Auto) 0.6 Eos # (Auto) 0.1 Baso # (Auto) 0.0 Abs Immat Gran (auto) 0.03 Absolute Neuts (auto) 6.4 Absolute Nucleated RBC 0.000 Nucleated RBC % (auto) 0.0 ESR 33 H PT 11.8 INR 1.0 Anion Gap 14 Estim Creat Clear Calc 80.8 Estimated GFR 54 Random Glucose 298 H Calcium 9.1 D Magnesium 1.9 Total Bilirubin 0.3 AST 19 ALT 18 Alkaline Phosphatase 81 Total Protein 7.2 Albumin 3.7 Imaging Radiologist's Impressions: Impressions Head CT 05/15/23 17:59 IMPRESSION: No acute intracranial hemorrhage or territorial loss of ramsey-white differentiation. Results discussed with JES Walsh at 18:23 on 05/15/2023. Head/Neck CTA 05/15/23 18:08 IMPRESSION: CTA NECK: No hemodynamically significant stenosis. Rounded hyperdense/enhancing soft tissue along the strap muscles inferior to the hyoid bone may represent ectopic thyroid tissue. Correlation with thyroid ultrasound is suggested. CTA HEAD: No proximal vessel occlusion. Linear filling defect in the superior basilar artery may represent a short segment fenestration, however no prior imaging is available to assess chronicity. Clinical correlation/attention on follow-up is recommended. Results discussed with JES Walsh at 18:23 on 05/15/2023. Assessment and Plan (1) Facial paralysis on left side: Status: Acute Plan 47-year-old female with hypertension, hyperlipidemia, uncontrolled kuq-wjgrbiu-mvjfspkhz type 2 diabetes who is severely obese with BMI > 36 admitted for left sided facial droop concerning for possible CVA #Left sided facial droop -head CT negative for any acute intracranial abnormality. CTA head/neck negative for any hemodynamically significant stenosis or large vessel occlusion -affecting lower L face, L eye but sparing forehead -?partial bells palsy vs cva -given prednisone and Valtrex in ED -risk factors for CVA- uncontrolled htn, uncontrolled dm -Given 324mg asa, continue 81mg asa daily -atorvastatin 80mg, lipid profile pending -MRI brain -Lyme panel pending -echocardiogram -neuro consult -passed bedside swallow evaluation, neuro checks, stroke education -monitor on telemetry # hypertensive urgency -given IV labetalol in ED -hold on further antihypertensives to allow for permissive hypertension due to possible CVA as above #HLD -statin # ihs-rnmacls-mszjvgurt type 2 diabetes with hyperglycemia -POC glucose, diabetic diet -Humalog on sliding scale -add lantus 10 units -hold Farxiga, metformin, glipizide. Continue Jardiance # severe obesity with BMI > 36 -weight loss efforts encouraged DVT prophylaxis-Lovenox Full code Patient requires inpatient stay at least 2 midnights due to persistent left- sided facial droop concerning for acute CVA requiring additional workup and expert consultation as well as close monitoring for progression of symptoms Quality Stroke Does the patient have a stroke diagnosis?: Yes Reason for No Anti-thrombotic by Day Two: Drug treatment not indicated VTE Prior VTE?: No VTE Risk Level:: Medical - moderate - high VTE Device Contraindication: Treatment Not Indicated VTE Drug Contraindication: N/A - Med Ordered
[2023-05-15 21:27] LABS: Glucose, Whole Blood 333 mg/dL (60-115)
[2023-05-15 21:30] VITALS: BP 158/86; PULSE 97; RESP 14; TEMP 36.8; O2SAT 96
[2023-05-15 23:04] VITALS: BP 133/74; PULSE 94
[2023-05-15] MEDS: Enoxaparin Sodium 40 MG/0.4 ML SYRINGE SUBCUT (23:14)
[2023-05-15] MEDS: 0.9 % Sodium Chloride Flush 3 ML SYRINGE IVFLUSH (23:15)
[2023-05-15] MEDS: Insulin Lispro 100 UNIT/ML 3 ML VIAL 10 UNIT SUBCUT (23:15)
[2023-05-15] MEDS: Insulin Glargine,Hum.rec.anlog 100 UNIT/ML 10 ML VIAL 10 UNIT SUBCUT (23:15)
[2023-05-16] VITALS (8 sets, daily range): BP systolic 142–188; BP diastolic 79–104; PULSE 86–93; RESP 16–20; TEMP 36.2–36.8; O2SAT 97–99; BMI 35.9
[2023-05-16 00:30] LABS: Glucose, Whole Blood 372 mg/dL (60-115)
--- NOTE | 2023-05-16 00:36 | PC.NURSE ---
repeat poc [address] myra valencia aware of poc per md allow 1hr until recheck.
[2023-05-16 01:35] LABS: Glucose, Whole Blood 317 mg/dL (60-115)
--- NOTE | 2023-05-16 01:41 | PC.NURSE ---
dr annie renteria made aware of repeat poc of 317. awaiting pharmacy confirmation of 7u IVP regular insulin and IVF. per md recheck poc 2hrs after administration of insulin
[2023-05-16] MEDS: Insulin Regular, Human 100 UNIT/ML 3 ML VIAL 7 UNIT IVPUSH (02:00)
[2023-05-16] MEDS: 0.9 % Sodium Chloride 500 ML IV ×2 (02:02→03:55)
[2023-05-16 04:15] LABS: Glucose, Whole Blood 263 mg/dL (60-115)
[2023-05-16 04:57] LABS: MANUAL DIFF FLAG NO
[2023-05-16 05:05] LABS: Basophils Percent Auto 0.1 % (0-2); Hematocrit 37.4 % (37.0-47.0); Hemoglobin 12.5 g/dl (12.0-16.0); Imm Gran Abs Auto 0.07 X10*3/uL (0.00-0.03); Imm Gran Pct Auto 0.5 % (0.0-0.4); Lymphocytes Absolute Auto 1.3 X10*3/uL (1.2-4.9); Lymphocytes Percent Auto 9.8 % (20-40); Mean Corpuscular HGB Conc 33.4 g/dl (31.0-35.0); Mean Corpuscular Hemoglobin 27.7 pg (27.0-33.0); Mean Corpuscular Volume 82.7 fL (80.0-98.0); Mean Platelet Volume 9.6 fL (9.4-12.3); Monocytes Absolute Auto 0.2 X10*3/uL (0.1-1.2); Monocytes Percent Auto 1.8 % (2-11); Neutrophils Percent Auto 87.8 % (45-73); Platelet Count 369 X10*3/uL (160-400); Red Blood Count 4.52 X10*6/uL (4.20-5.50); Red Cell Distribution Width 12.7 % (11.0-16.0); White Blood Count 13.6 X10*3/uL (4.8-10.8)
[2023-05-16 05:23] LABS: Anion Gap 15 (12-20); Blood Urea Nitrogen 14 mg/dL (9-16); Calcium 9.2 mg/dL (8.4-10.2); Carbon Dioxide 22 mmol/L (22-29); Chloride 103 mmol/L (96-108); Cholesterol 226 mg/dL (<200); Creatinine Clr Calc Pharmacy 95.9; Estimated Glomerular Filt Rate > 60; Glucose Random 292 mg/dL (60-115); HDL Cholesterol 40 mg/dL (>40); LDL Cholesterol Calculated 151 mg/dL (<100); Sodium 136 mmol/L (135-145); Triglycerides 176 mg/dL (<150)
[2023-05-16 07:36] LABS: Glucose, Whole Blood 262 mg/dL (60-115)
[2023-05-16 08:23] LABS: Prothrombin Time Whole Bld POC 14.1 sec (11.1-13.5)
[2023-05-16] MEDS: Insulin Lispro 100 UNIT/ML 3 ML VIAL SUBCUT ×4 (08:53→21:42)
[2023-05-16] MEDS: Cholecalciferol (Vitamin D3) 25 MCG TABLET 50 MCG PO (08:53)
[2023-05-16] MEDS: Atorvastatin Calcium 80 MG TABLET PO (08:53)
[2023-05-16] MEDS: Aspirin Enteric Coated 81 MG TABLET.DR PO (08:53)
[2023-05-16] MEDS: 0.9 % Sodium Chloride Flush 3 ML SYRINGE IVFLUSH ×3 (08:54→20:56)
--- NOTE | 2023-05-16 08:57 | PC.NURSE ---
this RN resumed care of pt at this time. vss and up to date. nsr on the hospital monitor. medication administered per provider order. left sided facial droop still noted at this time. cms intact. strength equal bilaterally. pt verbalizing 4/10 headache and slight numbness/tingling in left side of face. denies radiation of numbness/tingling. no sob/wob noted. respirations even and unlabored. pt waiting for bed assignment at this time. call sena placed within reach.
--- NOTE | 2023-05-16 09:20 | PC.NURSE ---
pt to MRI at this time.
--- NOTE | 2023-05-16 10:47 | PC.NURSE ---
pt returned from MRI at this time. delay in medication administration d/t medication not delivered from pharmacy yet. will administer when able. pt's vss and up to date aside from being hypertensive a this time. pt states she takes 10mg of lisinopril daily - last taken on 2 in the morning. medication completed in med rec but not crossed over. will notify admitting provider. respirations remain even and unlabored. call sena placed within reach.
[2023-05-16] MEDS: lisinopriL 10 MG TABLET PO (11:48)
--- NOTE | 2023-05-16 11:48 | PC.NURSE ---
BP medication administered per provider order. will reassess BP shortly.
[2023-05-16 12:02] LABS: Estimated Average Glucose 229 mg/dL; Hemoglobin A1c % 9.6 % (<6.0)
[2023-05-16] MEDS: Empagliflozin 25 MG TABLET PO (12:18)
--- NOTE | 2023-05-16 12:18 | PC.NURSE ---
medication delivered from pharmacy/administered at this time. pt remains hypertensive despite medication administration. will reassess BP shortly. family bedside for support. call sena placed within reach.
--- NOTE | 2023-05-16 12:22 | MHC.CM.PN ---
CM met with Patient and several family members in the ED, at bedside. 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 Home/self care is the goal and CM has initiated and will follow for dc planning.PCP is Dr. Junior Nicolas.
--- NOTE | 2023-05-16 13:05 | PC.NURSE ---
pt and family speaking w/ child care education coordinator, Sara Martinez RN at this time.
[2023-05-16 13:21] LABS: Glucose, Whole Blood 229 mg/dL (60-115)
--- NOTE | 2023-05-16 13:27 | PC.NURSE ---
Met with patient to discuss stroke education. Pt awake, alert and oriented x 3. Skin warm and dry. REsp unlabored. Denies n/v. No c/o pain presently. Denies headache. Pt remains hypertensive despite medication administration. Primary RN in contact with hospitalist for orders as needed. Pt states that she sees an orthopedic mechanic for her diabetes. She states that recently the pharmacy has had a hard time obtaining her trulicity so she hasn't been taking it. HgbA1C was 9.6. Neuros intact. Left sided facial droop still noted. Pt denies difficulty swallowing. Awaiting neuro consult and bed placement upstairs. Pt aware and agreeable to plan. No questions per patient/family. Stroke education booklet provided to patient.
--- NOTE | 2023-05-16 14:24 | HO.PM.IMPN ---
Subjective Subjective Date of Service: 05/16/23 Interval History: Facial droop Review of Systems seems weaknes sbetter but still has facial drop Physical Exam Vital Signs: Vital Signs: Last Vital Signs Temp 98.2 F 05/16/23 12:19 Pulse 93 05/16/23 13:23 Resp 16 05/16/23 13:23 BP 176/94 H 05/16/23 13:23 Pulse Ox 99 05/16/23 13:23 O2 Del Method Room Air 05/16/23 13:23 BMI result Body Mass Index 36.7 Appearance: Alert.? Oriented X3.? not in distress.? cvs: rrr, [id number] . res: clear to auscultation ,no rhonchii or wheezing abd: no rebound or guarding ,nt, bs present. ext pulses present , no cyanosis . neuro: axo3 , moves all ext has facial droop. Objective Data Active Medications Acetaminophen (Acetaminophen 325 Mg Tablet) 650 mg PO Q6H PRN PRN Reason: Pain, Mild (Pain Scale 1-3) Aspirin (Aspirin Enteric Coated 81 Mg Tablet.) 81 mg PO DAILY [facility] Last Admin: 05/16/23 08:53 Dose: 81 mg Documented By: MARCELINO Atorvastatin Calcium (Atorvastatin Calcium 80 Mg Tablet) 80 mg PO DAILY [facility] Last Admin: 05/16/23 08:53 Dose: 80 mg Documented By: MARCELINO Dextrose (Dextrose 50 % 25 Gm/50 Ml Syringe) 25 gm IVPUSH Q15M PRN; Protocol PRN Reason: per Hypoglycemia Standing Ord. Empagliflozin (Empagliflozin 25 Mg Tablet) 25 mg PO DAILY [facility] Last Admin: 05/16/23 12:18 Dose: 25 mg Documented By: MARCELINO Enoxaparin Sodium (Enoxaparin Sodium 40 Mg/0.4 Ml Syringe) 40 mg SUBCUT Q24H [facility] Last Admin: 05/15/23 23:14 Dose: 40 mg Documented By: JESSICA Glucose (Glucose Gel 15 Gm Gel..Gram.) 15 gm PO Q15M PRN; Protocol PRN Reason: per Hypoglycemia Standing Ord. Insulin Glargine (Insulin Glargine,Hum.Rec.Anlog 100 Unit/Ml 10 Ml Vial) 10 unit SUBCUT BEDTIME [facility] Last Admin: 05/15/23 23:15 Dose: 10 unit Documented By: JESSICA Insulin Human Lispro (Insulin Lispro 100 Unit/Ml 3 Ml Vial) 0 unit SUBCUT QIDACHS [facility]; Protocol Last Admin: 05/16/23 13:22 Dose: 4 unit Documented By: MARCELINO Lisinopril (Lisinopril 10 Mg Tablet) 10 mg PO DAILY [facility]; Protocol Last Admin: 05/16/23 11:48 Dose: 10 mg Documented By: MARCELINO Ondansetron HCl (Ondansetron Hcl 4 Mg/2 Ml Vial) 4 mg IVPUSH Q8H PRN PRN Reason: Nausea and Vomiting Senna (Sennosides 8.6 Mg Tablet) 17.2 mg PO BEDTIME PRN PRN Reason: Constipation Sodium Chloride (0.9 % Sodium Chloride Flush 3 Ml Syringe) 3 ml IVFLUSH QSHIFT [facility] Last Admin: 05/16/23 08:54 Dose: 3 ml Documented By: MARCELINO Vitamin D (Cholecalciferol (Vitamin D3) 25 Mcg Tablet) 50 mcg PO DAILY [facility] Last Admin: 05/16/23 08:53 Dose: 50 mcg Documented By: MARCELINO Labs 05/16/23 04:18 05/16/23 04:18 Labs: Laboratory Results - last 24 hr 05/15/23 05/15/23 05/15/23 17:48 18:59 21:23 MCV 80.8 MCH 27.5 MCHC 34.1 RDW 12.6 Plt Count 346 MPV 9.6 Immature Gran % (Auto) 0.3 Neut % (Auto) 59.3 Lymph % (Auto) 33.5 Meriw[place] % (Auto) 5.4 Eos % (Auto) 1.2 Baso % (Auto) 0.3 Lymph # (Auto) 3.6 [place] # (Auto) 0.6 Eos # (Auto) 0.1 Baso # (Auto) 0.0 Abs Immat Gran (auto) 0.03 Absolute Neuts (auto) 6.4 Absolute Nucleated RBC 0.000 Nucleated RBC % (auto) 0.0 ESR 33 H PT 11.8 Whole Blood PT 14.1 H INR 1.0 Whole Blood INR 1.0 Anion Gap 14 Estim Creat Clear Calc 80.8 Estimated GFR 54 POC Glucose 333 H Random Glucose 298 H Estimat Average Glucose Hemoglobin A1c % Calcium 9.1 D Magnesium 1.9 Total Bilirubin 0.3 AST 19 ALT 18 Alkaline Phosphatase 81 Total Protein 7.2 Albumin 3.7 Triglycerides Cholesterol LDL Cholesterol, Calc HDL Cholesterol 05/16/23 05/16/23 05/16/23 00:24 01:31 04:12 MCV MCH MCHC RDW Plt Count MPV Immature Gran % (Auto) Neut % (Auto) Lymph % (Auto) [place] % (Auto) Eos % (Auto) Baso % (Auto) Lymph # (Auto) [place]ether # (Auto) Eos # (Auto) Baso # (Auto) Abs Immat Gran (auto) Absolute Neuts (auto) Absolute Nucleated RBC Nucleated RBC % (auto) ESR PT Whole Blood PT INR Whole Blood INR Anion Gap Estim Creat Clear Calc Estimated GFR POC Glucose 372 H* 317 H 263 H Random Glucose Estimat Average Glucose Hemoglobin A1c % Calcium Magnesium Total Bilirubin AST ALT Alkaline Phosphatase Total Protein Albumin Triglycerides Cholesterol LDL Cholesterol, Calc HDL Cholesterol 05/16/23 05/16/23 05/16/23 04:18 07:33 13:18 MCV 82.7 MCH 27.7 MCHC 33.4 RDW 12.7 Plt Count 369 MPV 9.6 Immature Gran % (Auto) 0.5 H Neut % (Auto) 87.8 H Lymph % (Auto) 9.8 L Mer[place] % (Auto) 1.8 L Eos % (Auto) 0.0 Baso % (Auto) 0.1 Lymph # (Auto) 1.3 [place] # (Auto) 0.2 Eos # (Auto) 0.0 Baso # (Auto) 0.0 Abs Immat Gran (auto) 0.07 H Absolute Neuts (auto) 12.0 H Absolute Nucleated RBC 0.000 Nucleated RBC % (auto) 0.0 ESR PT Whole Blood PT INR Whole Blood INR Anion Gap 15 Estim Creat Clear Calc 95.9 Estimated GFR > 60 POC Glucose 262 H 229 H Random Glucose 292 H Estimat Average Glucose 229 Hemoglobin A1c % 9.6 H Calcium 9.2 Magnesium Total Bilirubin AST ALT Alkaline Phosphatase Total Protein Albumin Triglycerides 176 H Cholesterol 226 H LDL Cholesterol, Calc 151 H HDL Cholesterol 40 L Assessment and Plan (1) Facial paralysis on left side: Status: Acute (2) Diabetes mellitus: Status: Acute (3) Uncontrolled hypertension: Status: Acute Plan 47-year-old female with hypertension, hyperlipidemia, uncontrolled xym-rfkquzy-oyybfshpy type 2 diabetes who is severely obese with BMI > 36 admitted for left sided facial droop concerning for possible CVA Left sided facial droop; head CT negative for any acute intracranial abnormality. CTA head/neck negative for any hemodynamically significant stenosis or large vessel occlusion mri negative affecting lower L face, L eye but sparing forehead risk factors for CVA- uncontrolled htn, uncontrolled dm plan; ?partial bells palsy vs cva given prednisone and Valtrex in ED risk factors for CVA- uncontrolled htn, uncontrolled dm continue 81mg asa daily,atorvastatin 80mg, lipid profile pending,Lyme panel pendin,echocardiogram passed bedside swallow evaluation, neuro checks, stroke education monitor on telemetry,neurology eval. hypertensive uncontrolled: -given IV labetalol in ED started lisinopril,if need may need to add small dose amlodipine, HLD-statin khk-qxvvqqp-emsfmkuqm type 2 diabetes with hyperglycemia -POC glucose, diabetic diet -Humalog on sliding scale coninue lantus 10 units,Hba1c -hold Farxiga, metformin, glipizide. Continue Jardiance severe obesity with BMI > 36 -weight loss efforts encouraged DVT prophylaxis-Lovenox Full code ongoing hospitlisation need persistent left-sided facial droop concerning for acute CVA requiring additional workup and expert consultation as well as close monitoring for progression of symptoms as well as htn monitering as well as further htn meds adjustment. Quality Stroke Does the patient have a stroke diagnosis?: Yes Reason for No Anti-thrombotic by Day Two: Drug treatment not indicated VTE Prior VTE?: No VTE Risk Level:: Medical - moderate - high VTE Device Contraindication: Treatment Not Indicated VTE Drug Contraindication: N/A - Med Ordered
--- NOTE | 2023-05-16 15:41 | PC.NURSE ---
admission worksheet completed. transport notified at this time.
[2023-05-16 17:03] LABS: Glucose, Whole Blood 170 mg/dL (60-115)
--- NOTE | 2023-05-16 17:40 | P.CNNE_ITS ---
History of Present Illness Data of Consult Service Date: 05/16/23 Primary Care Provider: Junior Nicolas MD [facility] Reason for consult: facial droop This is a 47-year-old female with hypertension, hyperlipidemia, uncontrolled its-ujxscvl-ecdurhywq type 2 diabetes, severe obesity BMI > 36 presented to the ED for evaluation of left-sided facial droop. She states earlier this morning at breakfast she felt her left eye was not closing as well as the right but denies any visual changes. Around noon, her son noticed that the left side of her face was drooping. She states the left shoulder was also tingly. Denies any slurred speech, dysphagia, visual changes, focal weakness or other paresthesias, gait/balance disturbance, word-finding difficulty. She has had a left-sided occipital headache. Denies any known tick bites. She has been checking her blood pressure at home and states it is typically uncontrolled with systolic pressures in the 140s though reports compliance with antihypertensive agents. In ER she was hypertensive to 231/118 given dose of labetalol with blood pressure 184/98 on admission. Glucose 298. Head CT negative for any acute intracranial abnormality. CTA head/neck negative for any hemodynamically significant stenosis or large vessel occlusion. MRI brain negative. Review of Systems 2 Review of Systems: General: No fevers, malaise, unintentional weight loss HEENT: No blurred vision, diplopia. No sore throat, nasal congestion, rhinorrhea, sinus pain, ear pain Cardiovascular: No chest pain, palpitations, or leg edema Respiratory: No shortness of breath, wheezing, cough GI: No abdominal pain, nausea, vomiting, diarrhea, constipation, melena, hematochezia : No dysuria, hematuria, increased urinary frequency, decreased urinary output MSK: No myalgia, back pain Neuro: No headaches, weakness, paresthesias. +facial weakness Skin: No rashes or lesions Yes all other systems are reviewed and are negative [facility] Past Medical History Medical History Mixed hyperlipidemia Obesity (BMI 30-39.9) Vitamin D deficiency Elevated LFTs Benign essential hypertension Pure hypercholesterolemia Diabetes mellitus Family History Family History Father Hypertension CVD (cardiovascular disease) Mother Medical history unknown Maternal Grandmother No problems noted. Maternal Grandfather No problems noted. Brother In good health Brother In good health Surgical History Surgical History History of section History of tonsillectomy and adenoidectomy Social History Social History Household Members: Spouse and Children Housing: House Do you presently have visiting nurse or other home services: No Alcohol intake: never Patient Tobacco Use Status: Never used Tobacco Smoked in Last 30 Days: No e-Cigarette/Vaping Use: Never Used Second Hand Smoke Exposure: Yes Use of substances other than those prescribed or required for medical reasons: No Have you been hit, kicked, punched, or otherwise hurt by someone within the past year? If so, by whom?: No Do you feel safe in your current relationship?: Yes Is there a partner from a previous relationship who is making you feel unsafe now?: No Are you made to feel afraid or neglected: No Advance Directives: No Advance Directives Information Provided: No Do you have thoughts of harming others: None Do you have a plan to hurt others: No Plan Recently lost weight without trying: Yes How much weight loss: 14-23 pounds Eating poorly because of decreased appetite: No Nutrition screen score: 4 Nutrition Risks: No Nutritional Risk Patient : No service: No Current occupational status: employed 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 Sexual orientation: Straight/Heterosexual Gender identity: Female Cognitive needs: No Hearing needs: No Vision needs: No Meds Allergies Allergy/AdvReac Type Severity Reaction Status Date / Time oxycodone Allergy Unknown palpitation Verified 04/27/23 13:11 s Active Medications: Current Medications Acetaminophen (Acetaminophen 325 Mg Tablet) 650 mg PO Q6H PRN PRN Reason: Pain, Mild (Pain Scale 1-3) Aspirin (Aspirin Enteric Coated 81 Mg Tablet.Dr) 81 mg PO DAILY [facility] Last Admin: 05/16/23 08:53 Dose: 81 mg Atorvastatin Calcium (Atorvastatin Calcium 80 Mg Tablet) 80 mg PO DAILY [facility] Last Admin: 05/16/23 08:53 Dose: 80 mg Dextrose (Dextrose 50 % 25 Gm/50 Ml Syringe) 25 gm IVPUSH Q15M PRN; Protocol PRN Reason: per Hypoglycemia Standing Ord. Empagliflozin (Empagliflozin 25 Mg Tablet) 25 mg PO DAILY [facility] Last Admin: 05/16/23 12:18 Dose: 25 mg Enoxaparin Sodium (Enoxaparin Sodium 40 Mg/0.4 Ml Syringe) 40 mg SUBCUT Q24H [facility] Last Admin: 05/15/23 23:14 Dose: 40 mg Glucose (Glucose Gel 15 Gm Gel..Gram.) 15 gm PO Q15M PRN; Protocol PRN Reason: per Hypoglycemia Standing Ord. Insulin Glargine (Insulin Glargine,Hum.Rec.Anlog 100 Unit/Ml 10 Ml Vial) 10 unit SUBCUT BEDTIME [facility] Last Admin: 05/15/23 23:15 Dose: 10 unit Insulin Human Lispro (Insulin Lispro 100 Unit/Ml 3 Ml Vial) 0 unit SUBCUT QIDACHS [facility]; Protocol Last Admin: 05/16/23 17:12 Dose: 2 unit Lisinopril (Lisinopril 10 Mg Tablet) 10 mg PO DAILY [facility]; Protocol Last Admin: 05/16/23 11:48 Dose: 10 mg Ondansetron HCl (Ondansetron Hcl 4 Mg/2 Ml Vial) 4 mg IVPUSH Q8H PRN PRN Reason: Nausea and Vomiting Senna (Sennosides 8.6 Mg Tablet) 17.2 mg PO BEDTIME PRN PRN Reason: Constipation Sodium Chloride (0.9 % Sodium Chloride Flush 3 Ml Syringe) 3 ml IVFLUSH QSHIFT [facility] Last Admin: 05/16/23 17:12 Dose: 3 ml Vitamin D (Cholecalciferol (Vitamin D3) 25 Mcg Tablet) 50 mcg PO DAILY [facility] Last Admin: 05/16/23 08:53 Dose: 50 mcg Home Medications Medication Instructions Recorded Confirmed Last Taken Type dulaglutide 1.5 mg/0.5 mL 1.5 mg subcut MO 09/21/21 05/15/23 Unknown History subcutaneous pen injector (Trulicity) atorvastatin 40 mg tablet 40 mg PO DAILY 09/21/22 05/15/23 05/15/23 History blood sugar diagnostic (FreeStyle #10 ea 09/21/22 01/30/23 Unknown History Lite Strips) blood-glucose meter (FreeStyle #1 ea 09/21/22 01/30/23 Unknown History Lite Meter kit) empagliflozin 25 mg tablet 25 mg PO DAILY 09/21/22 05/15/23 05/15/23 History (Jardiance) pioglitazone 15 mg tablet 15 mg PO DAILY 05/15/23 05/15/23 Unknown History Physical Exam 2 Vital Signs: Vital Signs: Last Vital Signs Temp 97.7 F 05/16/23 16:47 Pulse 89 05/16/23 16:47 Resp 20 05/16/23 16:47 BP 173/96 H 05/16/23 16:47 Pulse Ox 98 05/16/23 16:47 O2 Del Method Room Air 05/16/23 16:47 BMI result Body Mass Index 35.9 Neuro: Other: Left peripheral facial weakness. Mild tenderness over the stylomastoid process. No shingles eruption in ear [place] of exam is normal Results Labs 05/16/23 04:18 05/16/23 04:18 Labs: Short CBC 05/15/23 05/16/23 Range/Units 18:59 04:18 WBC 10.8 13.6 H (4.8-10.8) X10*3/uL Hgb 12.2 12.5 (12.0-16.0) g/dl Hct 35.8 L 37.4 (37.0-47.0) % Plt Count 346 369 (160-400) X10*3/uL BMP 05/15/23 05/16/23 18:59 04:18 Sodium 135 136 Potassium 3.8 4.0 Chloride 101 103 Carbon Dioxide 24 22 BUN 17 H 14 Creatinine 1.08 0.91 Calcium 9.1 D 9.2 Liver Function 05/15/23 Range/Units 18:59 Total Bilirubin 0.3 (0.0-1.0) mg/dL AST 19 (5-31) U/L ALT 18 (0-31) U/L Alkaline Phosphatase 81 (39-117) U/L Albumin 3.7 (3.5-5.0) g/dL Assessment and Plan (1) Facial paralysis on left side: Status: Acute Left Nuno's palsy Recom: Check Lyme titer. Valacyclovir for 7 days. Would hold off steroids because of poorly controlled diabetes mellitus. Plan 47-year-old female with hypertension, hyperlipidemia, uncontrolled juo-hypvewc-uwajiiqlr type 2 diabetes who is severely obese with BMI > 36 admitted for left sided facial droop concerning for possible CVA #Left sided facial droop -head CT negative for any acute intracranial abnormality. CTA head/neck negative for any hemodynamically significant stenosis or large vessel occlusion -affecting lower L face, L eye but sparing forehead -?partial bells palsy vs cva -given prednisone and Valtrex in ED -risk factors for CVA- uncontrolled htn, uncontrolled dm -Given 324mg asa, continue 81mg asa daily -atorvastatin 80mg, lipid profile pending -MRI brain -Lyme panel pending -echocardiogram -neuro consult -passed bedside swallow evaluation, neuro checks, stroke education -monitor on telemetry # hypertensive urgency -given IV labetalol in ED -hold on further antihypertensives to allow for permissive hypertension due to possible CVA as above #HLD -statin # ebi-qiqpuuq-vdblotlnn type 2 diabetes with hyperglycemia -POC glucose, diabetic diet -Humalog on sliding scale -add lantus 10 units -hold Farxiga, metformin, glipizide. Continue Jardiance # severe obesity with BMI > 36 -weight loss efforts encouraged DVT prophylaxis-Lovenox Full code Patient requires inpatient stay at least 2 midnights due to persistent left- sided facial droop concerning for acute CVA requiring additional workup and expert consultation as well as close monitoring for progression of symptoms Procedures Date of Service Date of Service: 05/16/23
[2023-05-16 20:21] LABS: Glucose, Whole Blood 243 mg/dL (60-115)
[2023-05-16] MEDS: Insulin Glargine,Hum.rec.anlog 100 UNIT/ML 10 ML VIAL 10 UNIT SUBCUT (21:41)
[2023-05-16] MEDS: Enoxaparin Sodium 40 MG/0.4 ML SYRINGE SUBCUT (21:41)
[2023-05-16] MEDS: metFORMIN HCl ER 500 MG TAB.ER.24H 1000 MG PO (21:41)
[2023-05-17 03:30] VITALS: BP 150/86; PULSE 84; RESP 16; TEMP 36.3; O2SAT 97
[2023-05-17 07:00] LABS: Glucose, Whole Blood 151 mg/dL (60-115)
[2023-05-17 07:04] VITALS: BP 143/83; PULSE 72; RESP 18; TEMP 36.5; O2SAT 98
[2023-05-17] MEDS: Atorvastatin Calcium 80 MG TABLET PO (08:02)
[2023-05-17] MEDS: Empagliflozin 25 MG TABLET PO (08:02)
[2023-05-17] MEDS: Aspirin Enteric Coated 81 MG TABLET.DR PO (08:02)
[2023-05-17] MEDS: Cholecalciferol (Vitamin D3) 25 MCG TABLET 50 MCG PO (08:02)
[2023-05-17] MEDS: metFORMIN HCl ER 500 MG TAB.ER.24H 1000 MG PO (08:02)
[2023-05-17] MEDS: 0.9 % Sodium Chloride Flush 3 ML SYRINGE IVFLUSH (08:03)
[2023-05-17] MEDS: lisinopriL 10 MG TABLET PO (08:03)
[2023-05-17] MEDS: Insulin Lispro 100 UNIT/ML 3 ML VIAL SUBCUT (08:08)
[2023-05-17] MEDS: amLODIPine Besylate 2.5 MG TABLET PO (08:56)
[2023-05-17] MEDS: valACYclovir HCL 1,000 MG TABLET 1000 MG PO ×2 (08:56→15:17)
--- NOTE | 2023-05-17 10:09 | HO.WOUND ---
Wound Consult: Initial 47yr old?F [place] [facility] [place] See progress notes and H&P for detailed history.? Wound consult placed for right Breast Wound Present on Admission.? Patient agreeable to assessment and photo documentation.? The patient is an uncontrolled Diabetic and we discussed the importance of blood sugar control and its affects on skin, wound development and wound healing. She reports understanding. She described she often gets small abscess that generally resolve on their own. 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 The cyst site is noted for induration / healing ridge and no concern for infection at this time. The right breast site was observed and is detailed below. she reports the wound originated as a blister turned to a puss filed blister ruptured and had significant erythema and swelling but has since resolved to current state. Right Breast Etiology: Abscess site Measurements: 0.4cm x 1cm x 0.2cm Wound Bed: pink moist wound bed with scant adherent yellow slough Drainage / Odor: none noted at this time - no purulence noted Edges: ? irregular and well defined Sunni wound: slight pink blanchable erythema - slight bruising noted ? No Induration, Fluctuance or Warmth noted Pain: denies Goals of Treatment: ? Moist wound healing with Alginate Recommendations: 1.Provide adequate and supplemental nutrition.? 2. When applicable maintain blood glucose levels per Providers order. 3. Right Breast - Cleanse with NS, Pat dry.? Apply barrier wipe to periwound, cover wound bed with Durafiber AGl.? Cover with Foam dressing.? Change every 1-2 days. Re-consult wound care Nurse for wound deterioration or wound changes.
[2023-05-17 11:45] VITALS: BP 145/83; PULSE 87; RESP 16; TEMP 36.8; O2SAT 96
[2023-05-17 11:56] LABS: Glucose, Whole Blood 150 mg/dL (60-115)
--- NOTE | 2023-05-17 14:34 | P.DS_ITS ---
DS: Providers Provider Date of Service: 05/17/23 Date of admission: 05/15/23 21:11 Date of discharge: 05/17/23 Primary care physician: Junior Nicolas MD Consults: 05/15/23 21:16 Consult to Neurology Routine Consulting Provider: [facility] Reason for consultation: left sided facial droop 05/16/23 16:36 Consult to Wound Care Routine Reason for consultation: right breast wound Attending physician on discharge: Junior Nicolas Discharging clinician: Junior Nicolas DS: Diagnosis Discharge Diagnosis (1) Facial paralysis on left side: Status: Acute (2) Diabetes mellitus: Status: Acute (3) Uncontrolled hypertension: Status: Acute DS: Summary Hospital Course Hospital Course: 47-year-old female with hypertension, hyperlipidemia, uncontrolled [id number] type 2 diabetes who is severely obese with BMI > 36 presented to the ED earlier today for evaluation of left-sided facial droop. She states earlier this morning at breakfast she felt her left eye was not closing as well as the right but denies any visual changes. Around noon, her son noticed that the left side of her face was drooping. She states the left shoulder was also tingly. Denies any slurred speech, dysphagia, visual changes, focal weakness or other paresthesias, gait/balance disturbance, word-finding difficulty. She has had a left-sided occipital headache. Denies any known tick bites. She has been checking her blood pressure at home and states it is typically uncontrolled with systolic pressures in the 140s though reports compliance with antihypertensive agents. On arrival, patient hypertensive to 231/118 given dose of labetalol with blood pressure 184/98 on admission. Vital signs otherwise stable. Hematology studies unremarkable. BUN/creatinine within normal limits, electrolyte levels normal. Glucose 298. Head CT negative for any acute intracranial abnormality. CTA head/neck negative for any hemodynamically significant stenosis or large vessel occlusion. 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 Incidentally seen is a rounded hypodense/enhancing soft tissue along the strap muscles inferior to the hyoid bone possibly representing ectopic thyroid tissue, recommend thyroid ultrasound. In the ED, given 324 mg aspirin, 20 mg labetalol, 10 mg labetalol, 60 mg prednisone, 1 g Valtrex. ED discussed case with Neurology recommending admission for possible stroke. Hospital course: Patient was admitted to the hospital because of left-sided facial droop-workup including CT head, neck, MRI seems negative: Patient symptoms seems to be improved had some residual left facial droop still: Seen by Neurology possibly Nuno's palsy recommended to add Valtrex. Avoid steroids for now due to hyperglycemia. Lyme serology still pending, added atorvastatin considering elevated cholesterol. Patient will be going home with Valtrex 1 g by mouth 3 times a day for 7 more days. dmwith hyperglycemia : seems improving , Hba1c levels 9.6, adjusted pioglitazone to 30 mg daily: Monitor fingersticks at home, consider follow-up with PCP out patiently and if needed consider repeating outpatient hemoglobin A1c. Uncontrolled hypertension: Added amlodipine 2.5 mg daily for better blood pressure control. Further management outpatient as per PCP. Patient will need referral from PCP for outpatient PT. 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 Correlation with thyroid ultrasound is suggested. plan: Complete Valtrex 1 g p.o. t.i.d. for 7 more days as above For diabetes pioglitazone adjusted to 30 mg daily, Monitor fingersticks at home, consider follow-up with PCP out patiently and if needed consider repeating outpatient hemoglobin A1c. amlodipine 2.5 mg daily for better blood pressure control. for ct neck -may repersents ectopic thyroid tissue (even though on physical do not appreciate it) -consider Correlation with thyroid ultrasound is suggested and tsh levels outpatient. Above management discussed with the patient in detail length, she understand in agreement with the above plan, time spent 50 minute. Time Attestation Discharge coordination time: Greater than 30 minutes Quality: Safe Use of Opioids Does Pt have an Active Cancer Diagnosis on the Problem List?: No Quality: Stroke Does the patient have a stroke diagnosis?: No Physical Exam Vital Signs: Vital Signs: Last Vital Signs Temp 98.2 F 05/17/23 11:45 Pulse 87 05/17/23 11:45 Resp 16 05/17/23 11:45 BP 145/83 H 05/17/23 11:45 Pulse Ox 96 05/17/23 11:45 O2 Del Method Room Air 05/17/23 11:45 BMI result Body Mass Index 35.9 Appearance: Alert.? Oriented X3.? not in distress. mild left sided facial droop cvs: rrr, [id number] . res: clear to auscultation ,no rhonchii or wheezing abd: no rebound or guarding ,nt, bs present. ext pulses present , no cyanosis . neuro: axo3 , moves all ext has facial droop. DS: Data Data Completed and Pending Labs on day of discharge: Laboratory Results - last 24 hr 05/16/23 05/16/23 05/17/23 16:51 20:17 06:52 POC Glucose 170 H 243 H 151 H 05/17/23 11:52 POC Glucose 150 H Imaging Chest x-ray: Radiologist's impression: ITS Impressions Head CT 05/15/23 17:59 IMPRESSION: No acute intracranial hemorrhage or territorial loss of ramsey-white differentiation. Results discussed with JES Walsh at 18:23 on 05/15/2023. Head/Neck CTA 05/15/23 18:08 IMPRESSION: CTA NECK: No hemodynamically significant stenosis. Rounded hyperdense/enhancing soft tissue along the strap muscles inferior to the hyoid bone may represent ectopic thyroid tissue. Correlation with thyroid ultrasound is suggested. CTA HEAD: No proximal vessel occlusion. Linear filling defect in the superior basilar artery may represent a short segment fenestration, however no prior imaging is available to assess chronicity. Clinical correlation/attention on follow-up is recommended. Results discussed with JES Walsh at 18:23 on 05/15/2023. Brain MRI 05/16/23 09:52 IMPRESSION: No acute intracranial findings. No acute infarcts. Discharge Plan Discharge Anticipated Discharge Date/Time: 05/17/23 14:13 Patient Disposition: Home, Self-Care Discharge Diagnosis: uncontrolled htn ,partial bells palsy Referrals: Junior Nicolas MD [Primary Care Provider] - 1 Week Discharge Medications: New valacyclovir 1 gram Tablet 1,000 mg PO TID Qty: 20 0RF amlodipine 2.5 mg Tablet 2.5 mg PO DAILY Qty: 30 0RF Protocol: Hold for SBP< HOLD for SBP < : 90 Continued cholecalciferol (vitamin D3) 50 mcg (2,000 unit) capsule 50 mcg PO DAILY Qty: 90 3RF metformin 500 mg tablet extended release 24 hr 1,000 mg PO BID Qty: 360 1RF lisinopril 10 mg tablet 10 mg PO DAILY Qty: 90 1RF Trulicity 1.5 mg/0.5 mL pen injector 1.5 mg subcut MO atorvastatin 40 mg tablet 40 mg PO DAILY (DME) FreeStyle Lite Strips Strip See Rx Instructions .ROUTE QAM Qty: 10 Rx Instructions: As directed (DME) blood-glucose meter [FreeStyle Lite Meter] Kit See Rx Instructions .ROUTE DIRECTED Qty: 1 Rx Instructions: As directed Jardiance 25 mg tablet 25 mg PO DAILY Changed pioglitazone 15 mg tablet 30 mg PO DAILY Qty: 60 0RF Discharge Orders: Discharge Order (Routine); Ordered 05/17/23 Ordered By: Lorena Dunlap Diet: Advance to usual diet Activity on Discharge: As tolerated Stand Alone Forms: Patient Portal Discharge page Activity Restrictions/Additional Instructions: Topical Wound Care Recommendations: 1. Ensure adequate nutrition.? 2. Maintain blood glucose levels per Providers order - this is important to skin health and wound healing. 3. Right Breast - Cleanse with wound wash or in the shower with routine bathing with soap and water, Pat dry.? Apply barrier wipe to periwound, cover wound bed with Durafiber AGl.? Cover with Foam dressing.? Change every 1-2 days. Supplies provided to patient for use at home. Ensure follow up as scheduled with providers. 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 Avoid steroids for now due to hyperglycemia. Lyme serology still pending, added atorvastatin considering elevated cholesterol. Patient will be going home with Valtrex 1 g by mouth 3 times a day for 7 more days. dmwith hyperglycemia : seems improving , Hba1c levels 9.6, adjusted pioglitazone to 30 mg daily: Monitor fingersticks at home, consider follow-up with PCP out patiently and if needed consider repeating outpatient hemoglobin A1c. Uncontrolled hypertension: Added amlodipine 2.5 mg daily for better blood pressure control. Further management outpatient as per PCP. Patient will need referral from PCP for outpatient PT. Health Concerns: Complete Valtrex 1 g p.o. t.i.d. for 7 more days as above For diabetes pioglitazone adjusted to 30 mg daily, Monitor fingersticks at home, consider follow-up with PCP out patiently and if needed consider repeating outpatient hemoglobin A1c. amlodipine 2.5 mg daily for better blood pressure control. for ct neck -may repersents ectopic thyroid tissue-consider Correlation with thyroid ultrasound is suggested and tsh levels outpatient with pcp. Plan of Treatment: As above. Assessment: As above.
--- NOTE | 2023-05-17 15:03 | MHC.CM.PN ---
Pt is medically cleared for D/C home self-care, pts will transport her home.
[2023-05-17 20:59] LABS: Lyme Abs Screen <0.90 index
== END 2023-05-17 15:24 | disposition home or self-care (01) | DRG 74 ==
LOC: HO.ED 18:14 → HO.EDOVER 21:21 → HO.IMC 05-16 15:12
PROVIDERS: Internal Medicine; Physician Assistant; Admitting Provider Physician Assistant; Emergency Provider Internal Medicine; PCP Internal Medicine; Visit Provider Internal Medicine
DX: G51.0 Bell's palsy (principal); I16.0 Hypertensive urgency; E11.65 Type 2 diabetes mellitus with hyperglycemia; E66.01 Morbid (severe) obesity due to excess calories; Z68.36 Body mass index [BMI] 36.0-36.9, adult; E78.2 Mixed hyperlipidemia; I10 Essential (primary) hypertension; Z79.84 Long term (current) use of oral hypoglycemic drugs; Z79.85 Long-term (current) use of injectable non-insulin antidiabetic drugs; Z79.899 Other long term (current) drug therapy
CPT/HCPCS: 36415; 70450; 70496; 70498; 70551; 80048; 80053; 80061; 82947; 83036; 83735; 85025; 85610; 85652; 86617; 86618; 97161; 97166; 99285; J1650; J1920

== ENCOUNTER → 2023-05-15 21:11 | Outpatient (BNV) | payer OTHER, SELFPAY | PROVIDERS: Admitting Provider Physician Assistant; Emergency Provider Internal Medicine; PCP Internal Medicine; Visit Provider Psychiatry & Neurology Neurology | DX: G51.0 Bell's palsy (principal) | CPT/HCPCS: 99222 ==

== ENCOUNTER → 2023-05-15 21:11 | Outpatient (BNV) | payer OTHER, SELFPAY | PROVIDERS: Admitting Provider Physician Assistant; Emergency Provider Internal Medicine; PCP Internal Medicine; Visit Provider Internal Medicine | DX: G51.0 Bell's palsy (principal); E11.65 Type 2 diabetes mellitus with hyperglycemia; I10 Essential (primary) hypertension; E66.01 Morbid (severe) obesity due to excess calories | CPT/HCPCS: 99223; 99231; 99239 ==

== ENCOUNTER 2023-05-23 12:06 | Outpatient (AMB) | payer OTHER, SELFPAY ==
[2023-05-23 12:32] VITALS: BP 110/72; PULSE 106; O2SAT 98; BMI 35.1
--- NOTE | 2023-05-23 12:32 | A.OFFPC_ITS ---
Vital Signs 05/23/23 12:32 Height 5 ft 7 in Weight 224 lb 2 oz BMI 35.1 BP 110/72 Blood Pressure Location Lt brachial Position Sitting Pulse 106 H Pulse Source Pulse Oximeter Pulse Oximetry (%) 98 Oxygen Delivery Method Room Air Intake Visit Reasons: 4 Month F/U DM, hyperlipidemia, HTN Clinical Assistant Required: No Accompanied by: Self / Same As Patient Allergies oxycodone Allergy (Unknown, Verified 05/23/23 12:56) palpitations Medication List - Last Reconciled 05/23/23 by Junior Nicolas MD amlodipine 2.5 mg See Protocol PO DAILY atorvastatin 80 mg (2 x 40 mg) PO DAILY blood sugar diagnostic (FreeStyle Lite Strips) As directed blood-glucose meter (FreeStyle Lite Meter kit) As directed cholecalciferol (vitamin D3) 50 mcg PO DAILY dulaglutide (Trulicity) 1.5 mg subcut MO empagliflozin (Jardiance) 25 mg PO DAILY lisinopril 10 mg PO DAILY metformin ER 1,000 mg (2 x 500 mg) PO BID pioglitazone 30 mg (2 x 15 mg) PO DAILY valacyclovir 1,000 mg PO TID Tobacco use date assessed: 05/23/23 Dental Screening Dental Screen Date: 05/23/23 Did you have a dental visit in the last 12 months?: Yes Did you have a dental problem in the last 6 months where you did not have access to dental care?: No Was dental information given to patient?: Patient has dentist HPI 4 Month F/U DM, hyperlipidemia, HTN HPI Details Patient comes in today for her HDF and routine follow up visit She went to the ER last week for a left-sided facial drooping, which she and her son noticed earlier that day - was concerned that she may be having a stroke Patient also recalls that her left shoulder felt tingly at the time but denies any slurring of her speech, dysphagia, left-sided weakness or any gait abnormality or disturbance Work ups done in the hospital, including labs, head CT and a CTA of the head and neck, which all came back negative although there are some incidental findings on her neck CTA that may suggest an ectopic thyroid tissue She was administered some medications in the ER, including Labetalol, aspirin and oral Prednisone pending further evaluation Neurology was consulted and 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 and recommended starting her on Valtrex Her Atorvastatin was increased to 80 mg QD as her cholesterol was also noted to still be elevated at the time Patient states that she currently feels okay although she still has the left facial drooping that she presented to the ER for last week She denies any trouble swallowing or with speech although her left facial drooping and numbness feel funny She denies any headaches or dizziness Denies any chest pains, no SOB No nausea/vomiting, no abdominal pain No change in bowel habits noted Patient adds that she's had an ingrown toenail on her right big toe for a while now and states that the pain there is slowly getting worse - would like to see a foot doctor to have this addressed now Needs her Vitamin D Rx refilled She had her follow up labs done last week - to discuss her results [facility] Medical History Mixed hyperlipidemia Obesity (BMI 30-39.9) Vitamin D deficiency Elevated LFTs Benign essential hypertension Pure hypercholesterolemia Diabetes mellitus Surgical History History of section History of tonsillectomy and adenoidectomy Family History Father Hypertension CVD (cardiovascular disease) Mother Medical history unknown Maternal Grandmother No problems noted. Maternal Grandfather No problems noted. 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 1. Little interest or pleasure in doing things: not at all 2. Feeling down, depressed, or hopeless: not at all 3. Trouble falling or staying asleep, or sleeping too much: not at all 4. Feeling tired or having little energy: not at all 5. Poor appetite or overeating: not at all 6. Feeling bad about yourself - or that you are a failure or have let yourself or your family down: not at all 7. Trouble concentrating on things, such as reading the newspaper or watching television: not at all 8. Moving or speaking so slowly that other people could have noticed. Or the opposite - being so fidgety or restless that you have been moving around a lot more than usual: not at all 9. Thoughts that you would be better off or of hurting yourself in some way: not at all Total score: 0 Depression Screening Interpretation: Negative Depression Screening Done: Yes 39106 - PHQ-9 Billing: Yes Source: Developed by Drs. Ja Young, Ale Green, Morgan De La Cruz and colleagues, with an educational daniel from [employer]. Thrive Questionnaire Date Thrive assessed: 05/23/23 I am a: Patient What is your living situation today?: I have a steady place to live Within the past 12 months, did the food you bought not last and you didn't have the money to get more?: Never true Within the past 12 months, did you worry whether your food would run out before you got money to buy more?: Never true Do you have trouble paying for medicines?: No Do you have trouble getting transportation to medical appointments?: No Do you have trouble paying your heating and electricity bill?: No Do you have trouble taking care of your child, family member or friend?: No Do you have trouble with day-to-day activities such as bathing, preparing meals, shopping, managing finances, etc.?: No Are you currently unemployed and looking for a job?: No Are you interested in more education?: No Please select the resources that you would like help with: None Currently or been in a relationship where the following occur: no concerns rep orted THRIVE Score: 0 AUDIT C Alcohol Use Questionnaire (AUDIT-C) 1. How often do you have a drink containing alcohol?: Never 3. How often do you have six or more drinks on one occasion?: Never Total Score: 0 Score Reviewed/Action Taken: Yes ZOILA-7 AMB Questionnaire ZOILA-7 Date ZOILA - 7 assessed: 05/23/23 Feeling nervous, anxious, or on edge: 0 = Not at all Not being able to stop or control worryin = Not at all Worrying too much about different things: 0 = Not at all Trouble relaxin = Not at all Being so restless that it is hard to sit still: 0 = Not at all Becoming easily annoyed or irritable: 0 = Not at all Feeling afraid as if something awful might happen: 0 = Not at all Total ZOILA-7 score (0-4 normal; 5-9 mild; 10-14 moderate; 15-21 severe): 0 Source: Developed by Drs. Ja Young, Ale Green, Morgan De La Cruz and colleagues, with an educational daniel from [employer]. Review of Systems Const Denies chills, Denies fatigue, Denies fever(s) and Denies headache(s) Eyes Denies blurry vision, Denies eye pain and Denies photophobia ENT Details: (+) left facial droop Denies dysphagia, Denies dizziness, Denies otalgia, Denies headache(s), Denies neck pain, Denies odynophagia and Denies sore throat Card Denies chest pain, Denies rapid heart rate, Denies irregular heart rhythm, Denies palpitations and Denies dyspnea Resp Denies cough, Denies dyspnea and Denies wheezing GI Denies abdominal pain, Denies constipation, Denies dysphagia, Denies heartburn, Denies diarrhea, Denies nausea, Denies odynophagia and Denies vomiting Denies urinary frequency, Denies dysuria, Denies urinary incontinence and Denies urinary urgency Musc Denies back pain, Reports arthralgias (over the left knee lately - see HPI), Denies joint swelling, Denies muscle weakness and Denies neck pain Skin/Breast Details: (+) painful ingrown nail on the right big toe Denies rash Neuro Details: (+) left facial drooping and numbness Denies dizziness, Denies headache(s) and Denies paresthesias Psych Denies anxiety and Denies depression Endo Denies fatigue and Denies palpitations Anirudh/Lymph Denies easy bruising Aller/Immun Denies wheezing Physical exam (Primary Care) Vital Signs: Last Vital Signs Pulse 106 H 02/13/24 12:32 BP 110/72 05/23/23 12:32 Pulse Ox 98 05/23/23 12:32 Oxygen Delivery Method Room Air 05/23/23 12:32 BMI result Body Mass Index 35.1 Tobacco/Smoking Status: Tobacco use Status Tobacco use date assessed 05/23/23 05/23/23 12:34 Patient Tobacco Use Status Never used Tobacco 05/23/23 12:34 e-Cigarette/Vaping Use Never Used 05/23/23 12:34 PHQ-9: PHQ-9 Score PHQ-9: Total score 0 05/23/23 12:59 Depression Screening Interpretation: Negative Thrive Assessment: Date of Thrive Assessment Date Thrive assessed 05/23/23 05/23/23 12:34 Currently or been in a relationship where the following occur: no concerns reported Const General: no acute distress and alert HENMT Other: (+) shallow left nasolabial fold, with (+) palsy/paralysis noted on the left side of the face Ears: TM's normal bilaterally and EAC's normal Throat: Yes posterior oropharynx normal, Yes tonsils normal (no TP congestion) and Yes uvula midline Eyes Eyelids: Yes lid lag (left eye) Direct Ophthalmoscopy: No photophobia Neck Neck: Yes no lymphadenopathy and Yes supple Thyroid: Thyroid normal Resp Auscultation: clear to auscultation bilaterally, no rales and no wheezes Cardio Rate: regular rate Rhythm: regular rhythm Heart sounds: no murmurs GI Palpation (GI): Soft to palpation and nontender Auscultation: normal bowel sounds General: Yes no CVA tenderness Back/Spine/Pelvis Back: no CVA tenderness Thoracic/Lumbar Spine: thoracic and lumbar spine normal to inspection Skin Rashes: no rashes Extrem Other: (+) ingrown right big toe nail General: Yes no clubbing, cyanosis or edema Left lower extremity: knee Details: normal ROM; no tenderness and no swelling Results Reviewed Results Reviewed: Laboratory Tests 05/15/23 05/16/23 05/16/23 18:59 04:18 04:18 WBC 13.6 H Hgb 12.5 Hct 37.4 Plt Count 369 Sodium 136 Potassium 4.0 Creatinine 0.91 Estimated GFR > 60 Random Glucose 292 H Hemoglobin A1c % 9.6 H Calcium 9.2 Magnesium 1.9 AST 19 ALT 18 Triglycerides 176 H Cholesterol 226 H LDL Cholesterol, Calc 151 H HDL Cholesterol 40 L Assessment and Plan Assessment & Plan (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 Code(s): G51.0 - Nuno's palsy Plan: S/P Tx with oral Valacyclovir Her Lyme disease serology came back negative Patient is again reassured of the benign nature of Nuno's palsy and that her symptoms will all completely resolve spontaneously over time; have advised her to take precautions to help keep her left eye closed completely when she is sleeping at night to avoid her eye drying up, which can lead to some potential eye issues Per request, will refer her to physical therapy for further evaluation and management (2) Diabetes mellitus: Code(s): E11.9 - Type 2 diabetes mellitus without complications Qualifiers: Diabetes mellitus type: type 2 Diabetes mellitus exterminator termite insulin use: without exterminator termite use Diabetes mellitus complication status: with hyperglycemia Qualified Code(s): E11.65 - Type 2 diabetes mellitus with hyperglycemia Plan: Her HgbA1c has increased to 9.6% on her labs done last week (was at 6.9% a few months ago) - goal is at least < 7.0% States that she has not been able to get her Trulicity for a few weeks now as it is unavailable at her local pharmacy Reinforced diabetic diet Continue Metformin ER 500 mg 2 tablets BID, Pioglitazone 30 mg QD and Jardiance 25 mg QD Will switch her out from her Trulicity 1.5 mg SQ once a week to Ozempic 1 mg SQ once a week Follow up with endocrinology (Dr. Boss) as scheduled (3) Mixed hyperlipidemia: Code(s): E78.2 - Mixed hyperlipidemia Plan: Results of her labs done last week reviewed and discussed with patient Reinforced low cholesterol diet Continue Fenofibrate 150 mg QD and Atorvastatin 80 mg QD - dose was increased at the ER last week from 20 mg QD Will recheck her labs and fasting lipids in 3 months for follow up (4) Benign essential hypertension: Code(s): I10 - Essential (primary) hypertension Plan: Reinforced low sodium diet - goal is systolic BP of 120 mm or less Continue Lisinopril 10 mg QD and Amlodipine 2.5 mg QD Patient is reminded to monitor her blood pressure regularly (5) Elevated LFTs: Code(s): R79.89 - Other specified abnormal findings of blood chemistry Plan: This appears to have improved and her LFTs have remained normal on her recent labs - was most likely due to her weight and high triglyceride level Will continue to monitor her LFTs regularly (6) Left knee pain: Code(s): M25.562 - Pain in left knee Qualifiers: Chronicity: unspecified Qualified Code(s): M25.562 - Pain in left knee Plan: X-rays of her left knee done back in December 2022 revealed (+) joint effusion with minimal degenerative changes States that her knee pain has mostly subsided lately (7) Vitamin D deficiency: Code(s): E55.9 - Vitamin D deficiency, unspecified Plan: Continue Vitamin D3 2000 units QD - Rx refilled Will recheck her Vitamin D level in 4 months for follow up (8) Thyroid mass: Code(s): E07.9 - Disorder of thyroid, unspecified Plan: Thyroid US done in October 2021 revealed subcentimeter spongiform nodules and colloid cysts that do NOT require follow up imaging studies Whether this is the same as the ectopic thyroid tissues seen on her recent neck CTA is unclear (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 Panel Fast 3 Months E78.00 - Pure hypercholesterolemia, unspecified TSH reflex Free T4 3 Months E78.00 - Pure hypercholesterolemia, unspecified Hemoglobin A1c 3 Months E11.9 - Type 2 diabetes mellitus without complications PT Evaluation and Treatment 05/23/23 G51.0 - Nuno's palsy Lipid Panel 3 Months E78.00 - Pure hypercholesterolemia, unspecified Complete Blood Count Auto Diff 3 Months D64.9 - Anemia, unspecified Microalbumin, Random (w Creat) 3 Months E11.9 - Type 2 diabetes mellitus without complications UA CC w/rflx Micro + Cult 3 Months R30.0 - Dysuria Vitamin D 25-OH Total 3 Months E55.9 - Vitamin D deficiency, unspecified Referrals Podiatry Referral E11.9 - Type 2 diabetes mellitus without complications, L60.0 - Ingrowing nail Medications: New semaglutide (Ozempic) 1 mg (0.75 mL) subcut QWEEK 4 weeks 3 mL 3RF E11.9 - Type 2 diabetes mellitus without complications Changed From cholecalciferol (vitamin D3) 50 mcg PO DAILY 90 caps 3RF To cholecalciferol (vitamin D3) 50 mcg PO DAILY 90 days 90 caps 3RF Coding Level of Care Code Est Pt Level 4 (46933) Diagnoses Facial paralysis/[place] palsy G51.0 Type 2 diabetes mellitus with hyperglycemia, without long-term current use of insulin E11.65 Diabetes mellitus type: type 2 Diabetes mellitus exterminator termite insulin use: without exterminator termite use Diabetes mellitus complication status: with hyperglycemia Mixed hyperlipidemia E78.2 Benign essential hypertension I10 Elevated LFTs R79.89 Left knee pain, unspecified chronicity M25.562 Chronicity: unspecified Vitamin D deficiency E55.9 Thyroid mass E07.9 Ectopic thyroid tissue Q89.2 Ingrown right big toenail L60.0 Obesity (BMI 30-39.9) E66.9
== END 2023-05-23 13:15 | disposition home or self-care (01) ==
PROVIDERS: PCP Internal Medicine; Visit Provider Internal Medicine
DX: G51.0 Bell's palsy (principal); E11.65 Type 2 diabetes mellitus with hyperglycemia; Z68.35 Body mass index [BMI] 35.0-35.9, adult; E66.9 Obesity, unspecified; E78.2 Mixed hyperlipidemia; I10 Essential (primary) hypertension; R79.89 Other specified abnormal findings of blood chemistry; M25.562 Pain in left knee; E55.9 Vitamin D deficiency, unspecified; E07.9 Disorder of thyroid, unspecified; Q89.2 Congenital malformations of other endocrine glands; L60.0 Ingrowing nail
CPT/HCPCS: 99214

== ENCOUNTER 2023-06-14 08:58 | Outpatient (REF) | payer OTHER, SELFPAY ==
--- NOTE | ~2023-06-14 | US_ITS ---
EXAMINATION: US THYROID CLINICAL INFORMATION: Congenital malformations of other endocrine glands. Rounded hyperdense/enhancing soft tissue along the strap muscles inferior to the hyoid bone seen incidentally on neck CT, may represent ectopic thyroid tissue. COMPARISON: CTA neck 05/15/2023. Thyroid ultrasound 11/05/2021. TECHNIQUE: Linear transducer grayscale and color Doppler examination with attention to the region of the thyroid. FINDINGS: SIZE: Measurements of the thyroid lobes and nodules are given in sagittal, anteroposterior and transverse dimensions respectively. Right Thyroid Lobe: 4.9 x 1.8 x 1.7 cm, volume 7.9 mL. Previously 5.1 x 1.9 x 1.7 cm, volume 8.6 mL. Parenchyma: The gland echotexture is homogeneous. Thyroid vascularity is normal. Left Thyroid Lobe: 4.7 x 1.4 x 1.7 cm, volume 5.7 mL. Previously 4.0 x 1.6 x 1.9 cm, volume 6.4 mL. Parenchyma: The gland echotexture is homogeneous. Thyroid vascularity is normal. Isthmus: 0.4 cm in maximum AP dimension. Previously 0.5 cm. Estimated total number of nodules greater than or equal to 1 cm: 0. [facility] nodules are described as follows: 1. Location: Right lower pole. Size: 0.4 x 0.2 x 0.3 cm, volume 0.02 mL. Previously: 0.5 x 0.3 x 0.3 cm, volume 0.02 mL. Nodule characteristics: Composition: Spongiform (0). ACR TI-RADS total points: 0 Previous: 0 ACR TI-RADS category: 1 Previous: 1 2. Location: Right medial/lower pole/isthmus. Size: 0.8 x 0.3 x 0.8 cm, volume 0.1 mL. Previously: 0.7 x 0.3 x 0.6 cm, volume 0.07 mL. Nodule characteristics: Composition: Spongiform (0). ACR TI-RADS total points: 0 Previous: 0 ACR TI-RADS category: 1 Previous: 1 NODES: No lymphadenopathy is seen in the tissue surrounding the thyroid gland. A correlate to the CT findings was not definitively discerned though the area of concern was at the level of the hyoid bone which is slightly superior to the thyroid not definitively imaged. US/US thyroid IMPRESSION: A correlate to the CT findings was not definitively discerned though the area of concern was at the level of the hyoid bone which is slightly superior to the thyroid not definitively imaged. Consider correlation with a repeat soft tissue neck ultrasound and/or nuclear medicine thyroid scintigraphy. Subcentimeter spongiform thyroid nodules as detailed above do not meet criteria for follow-up. ACR TI-RADS RECOMMENDATION REFERENCE: Ultrasound-guided fine-needle aspiration, follow up ultrasound, no further followup. * TR1 (0 point) and TR2 (2 points): No FNA or followup * TR3 (3 points): FNA if more than or equal to 2.5 cm in maximum dimension, follow up ultrasound in 1, 3 and 5 years if 1.5 to 2.4 cm in maximum dimension. * TR4 (4-6 points): FNA if more than or equal to 1.5 cm in maximum dimension, follow up ultrasound in 1, 2, 3 and 5 years if 1 to 1.4 cm in maximum dimension. * TR5 (more than or equal to 7 points): FNA if more than or equal to 1 cm in maximum dimension, follow up ultrasound every year for 5 years if 0.5 to 0.9 cm in maximum dimension. * TR3, TR4 or TR5 nodules that are below the size threshold for follow up receive no followup.
== END 2023-06-14 08:59 | disposition home or self-care (01) ==
LOC: HO.US 08:58
PROVIDERS: PCP Internal Medicine; Visit Provider Internal Medicine
DX: Q89.2 Congenital malformations of other endocrine glands (principal)
CPT/HCPCS: 76536

== ENCOUNTER 2023-08-18 08:44 | Outpatient (REF) | payer OTHER, SELFPAY ==
[2023-08-18 09:03] LABS: MANUAL DIFF FLAG NO
[2023-08-18 09:36] LABS: Basophils Percent Auto 0.1 % (0-2); Eosinophils Percent Auto 0.4 % (0-4); Hematocrit 40.8 % (37.0-47.0); Hemoglobin 13.3 g/dl (12.0-16.0); Imm Gran Abs Auto 0.02 X10*3/uL (0.00-0.03); Imm Gran Pct Auto 0.3 % (0.0-0.4); Lymphocytes Absolute Auto 2.9 X10*3/uL (1.2-4.9); Lymphocytes Percent Auto 39.5 % (20-40); Mean Corpuscular HGB Conc 32.6 g/dl (31.0-35.0); Mean Corpuscular Hemoglobin 28.2 pg (27.0-33.0); Mean Corpuscular Volume 86.6 fL (80.0-98.0); Mean Platelet Volume 9.5 fL (9.4-12.3); Monocytes Absolute Auto 0.5 X10*3/uL (0.1-1.2); Monocytes Percent Auto 6.5 % (2-11); Neutrophils Absolute Auto 3.9 x10*3/uL (2.0-8.3); Neutrophils Percent Auto 53.2 % (45-73); Platelet Count 368 X10*3/uL (160-400); Red Blood Count 4.71 X10*6/uL (4.20-5.50); Red Cell Distribution Width 13.1 % (11.0-16.0); White Blood Count 7.4 X10*3/uL (4.8-10.8)
[2023-08-18 09:48] LABS: Estimated Average Glucose 131 mg/dL; Hemoglobin A1C 136.5137 umol/L; Hemoglobin A1c % 6.2 % (<6.0)
[2023-08-18 10:12] LABS: Appearance Urine Cloudy; Color Urine Yellow; Glucose Urine UA >=1000 mg/dL (Negative); Leukocyte Esterase Urine Negative (Negative); Nitrite Urine Negative (Negative); Specific Gravity - Urine >= 1.030 (1.005-1.025); UMIC TRIGGER UACC YES; Urine Blood Negative (Negative); Urine Ketones Negative (Negative); Urine Protein Negative (Neg-Trace)
[2023-08-18 10:18] LABS: Creatinine Urine 159.73 mg/dL; Microalbum/Creatinine Ratio Ur 6.2 ug/mg cr (<30)
[2023-08-18 10:29] LABS: Alanine Aminotransferase 15 U/L (0-31); Albumin Level 4.4 g/dL (3.5-5.0); Alkaline Phosphatase 62 U/L (39-117); Anion Gap 15 (12-20); Aspartate Amino Transferase 17 U/L (5-31); Bilirubin Total 0.8 mg/dL (0.0-1.0); Blood Urea Nitrogen 10 mg/dL (9-16); Calcium 9.9 mg/dL (8.4-10.2); Carbon Dioxide 23 mmol/L (22-29); Chloride 106 mmol/L (96-108); Cholesterol 100 mg/dL (<200); Estimated Glomerular Filt Rate > 60; Glucose Fasting 86 mg/dL (60-99); HDL Cholesterol 36 mg/dL (>40); LDL Cholesterol Calculated 47 mg/dL (<100); Potassium 4.2 mmol/L (3.3-5.1); Sodium 140 mmol/L (135-145); Total Protein 7.6 g/dL (6.5-8.0); Triglycerides 89 mg/dL (<150)
[2023-08-18 10:30] LABS: Bacteria Urine 1+ (None Seen); Hyaline Casts Urine 0-2 /LPF (0-2); RBC Urine 0-2 /HPF (0-2); UACC Culture Trigger YES
[2023-08-18 10:31] LABS: TSH reflex Free T4 1.72 uIU/mL (0.32-4.0); Vitamin D 25-OH Total 43.5 ng/mL (>30)
== END 2023-08-18 08:45 | disposition home or self-care (01) ==
LOC: HO.LAB 08:44
PROVIDERS: PCP Internal Medicine; Visit Provider Internal Medicine
DX: E78.00 Pure hypercholesterolemia, unspecified (principal); E11.9 Type 2 diabetes mellitus without complications; I10 Essential (primary) hypertension; E55.9 Vitamin D deficiency, unspecified; R30.0 Dysuria
CPT/HCPCS: 36415; 80053; 80061; 81001; 81003; 82043; 82306; 82570; 83036; 84443; 85025; 87086

== ENCOUNTER 2023-08-21 09:48 | Outpatient (AMB) | payer OTHER, SELFPAY ==
[2023-08-21 09:50] VITALS: BP 116/74; PULSE 103; O2SAT 95; BMI 32.7
--- NOTE | 2023-08-21 09:50 | MHC.PC.OV ---
Vital Signs 08/21/23 09:50 Height 5 ft 7 in Weight 209 lb BMI 32.7 BP 116/74 Blood Pressure Location Lt brachial Position Sitting Pulse 103 H Pulse Source Pulse Oximeter Pulse Oximetry (%) 95 Oxygen Delivery Method Room Air Intake Visit Reasons: Nuno's palsy, DM, hyperlipidemia, HTN Captain Assistant Required: No System Operator: Not Required per policy Accompanied by: Self / Same As Patient Allergies oxycodone Allergy (Unknown, Verified 08/21/23 10:17) palpitations Medication List - Last Reconciled 08/21/23 by Junior Nicolas MD amlodipine 2.5 mg See Protocol PO DAILY atorvastatin 80 mg (2 x 40 mg) PO DAILY blood sugar diagnostic (FreeStyle Lite Strips) As directed blood-glucose meter (FreeStyle Lite Meter kit) As directed cholecalciferol (vitamin D3) 50 mcg PO DAILY 90 days empagliflozin (Jardiance) 25 mg PO DAILY lisinopril 10 mg PO DAILY metformin ER 1,000 mg (2 x 500 mg) PO BID pioglitazone 30 mg (2 x 15 mg) PO DAILY semaglutide (Ozempic) 1 mg (0.75 mL) subcut QWEEK 4 weeks valacyclovir 1,000 mg PO TID Tobacco use date assessed: 05/23/23 Dental Screening Dental Screen Date: 05/23/23 HPI Nuno's palsy, DM, hyperlipidemia, HTN HPI Details Patient comes in today for her follow up visit States that she feels okay She denies any headaches but reports (+) recurrent transient dizziness lately when she gets up too quickly (from sitting or lying down) She denies any chest pains, no SOB No nausea/vomiting, no abdominal pain No change in bowel habits noted She continues to experience frequent pain in her right knee, especially when she is going up and down stairs - states that this has been going on for months now and does not feel like it is getting any better lately She denies any recent injury or trauma to her knee Would also like to know how her thyroid US done a couple of months ago came out Had her follow up labs done a few days ago - to discuss her results [facility] Medical History Mixed hyperlipidemia Obesity (BMI 30-39.9) Vitamin D deficiency Elevated LFTs Benign essential hypertension Pure hypercholesterolemia Diabetes mellitus Surgical History History of section History of tonsillectomy and adenoidectomy Family History Father Hypertension CVD (cardiovascular disease) Mother Medical history unknown Maternal Grandmother No problems noted. Maternal Grandfather No problems noted. 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 Ja Young, Ale Green, Morgan De La Cruz and colleagues, with an educational daniel from [employer]. Review of Systems Const Denies chills, Denies fatigue, Denies fever(s) and Denies headache(s) Eyes Denies photophobia ENT Denies dysphagia, Reports dizziness (transient but recurrent lately - mostly when she gets up too quickly), Denies otalgia, Denies headache(s), Denies neck pain, Denies odynophagia and Denies sore throat Card Denies chest pain, Denies rapid heart rate, Denies irregular heart rhythm, Denies palpitations and Denies dyspnea Resp Denies cough, Denies dyspnea and Denies wheezing GI Denies abdominal pain, Denies constipation, Denies dysphagia, Denies heartburn, Denies diarrhea, Denies nausea, Denies odynophagia and Denies vomiting Denies urinary frequency, Denies dysuria, Denies urinary incontinence and Denies urinary urgency Musc Denies back pain, Reports arthralgias (over the right knee - see HPI), Denies joint swelling and Denies neck pain Skin/Breast Denies rash Neuro Details: (+) left facial drooping and numbness Reports dizziness (transient but recurrent lately - mostly when she gets up too quickly), Denies headache(s) and Denies paresthesias Psych Denies anxiety and Denies depression Endo Denies fatigue and Denies palpitations Anirudh/Lymph Denies easy bruising Aller/Immun Denies wheezing Physical exam (Primary Care) Vital Signs: Last Vital Signs Pulse 103 H 08/21/23 09:50 BP 116/74 08/21/23 09:50 Pulse Ox 95 08/21/23 09:50 Oxygen Delivery Method Room Air 08/21/23 09:50 BMI result Body Mass Index 32.7 Tobacco/Smoking Status: Tobacco use Status Tobacco use date assessed 05/23/23 08/21/23 09:51 Patient Tobacco Use Status Never used Tobacco 08/21/23 09:51 e-Cigarette/Vaping Use Never Used 08/21/23 09:51 Thrive Assessment: Date of Thrive Assessment Date Thrive assessed 05/23/23 08/21/23 09:51 Const General: no acute distress and alert HENMT Ears: TM's normal bilaterally and EAC's normal Throat: Yes posterior oropharynx normal and Yes tonsils normal (no TP congestion) Eyes Direct Ophthalmoscopy: No photophobia Neck Neck: Yes no lymphadenopathy and Yes supple Thyroid: Thyroid normal Resp Auscultation: clear to auscultation bilaterally, no rales and no wheezes Cardio Rate: regular rate Rhythm: regular rhythm Heart sounds: no murmurs GI Palpation (GI): Soft to palpation and nontender Auscultation: normal bowel sounds General: Yes no CVA tenderness Back/Spine/Pelvis Back: no CVA tenderness Thoracic/Lumbar Spine: thoracic and lumbar spine normal to inspection Skin Rashes: no rashes Extrem General: Yes no clubbing, cyanosis or edema Right lower extremity: knee Details: normal ROM; no tenderness and no swelling Results Reviewed Results Reviewed: Laboratory Tests 08/18/23 08/18/23 08:56 09:01 WBC 7.4 Hgb 13.3 Hct 40.8 Plt Count 368 Sodium 140 Potassium 4.2 Creatinine 0.79 Estimated GFR > 60 Fasting Glucose 86 Hemoglobin A1c % 6.2 H Calcium 9.9 D AST 17 ALT 15 Triglycerides 89 Cholesterol 100 LDL Cholesterol, Calc 47 HDL Cholesterol 36 L 25-OH Vitamin D Total 43.5 TSH 1.72 Ur Specific Edna >= 1.030 H Urine Protein Negative Urine Glucose (UA) >=1000 H Urine Blood Negative Urine Nitrite Negative Ur Leukocyte Esterase Negative Microalb/Creat Ratio 6.2 Assessment and Plan Assessment & Plan (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 Code(s): G51.0 - Nuno's palsy Plan: RESOLVED - S/P Tx with oral Valacyclovir and she 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 (2) Diabetes mellitus: Code(s): E11.9 - Type 2 diabetes mellitus without complications Qualifiers: Diabetes mellitus type: type 2 Diabetes mellitus supervisor intermediates insulin use: without supervisor intermediates use Diabetes mellitus complication status: with hyperglycemia Qualified Code(s): E11.65 - Type 2 diabetes mellitus with hyperglycemia Plan: Her HgbA1c has improved significantly to 6.2% on her labs done a few days ago (was previously at 9.6% a few months ago) - goal is at least < 7.0% Reinforced diabetic diet Continue Metformin ER 500 mg 2 tablets BID, Pioglitazone 30 mg QD, Jardiance 25 mg QD and Ozempic 1 mg SQ once a week Follow up with endocrinology (Dr. Boss) as scheduled (3) Mixed hyperlipidemia: Code(s): E78.2 - Mixed hyperlipidemia Plan: Results of her labs done a few days ago reviewed and discussed with patient - advised that her cholesterol levels have also improved significantly from previous Reinforced low cholesterol diet Continue Fenofibrate 150 mg QD and Atorvastatin 80 mg QD Will recheck her labs and fasting lipids in 4 months for follow up (4) Benign essential hypertension: Code(s): I10 - Essential (primary) hypertension Plan: Reinforced low sodium diet - goal is systolic BP of 120 mm or less Her blood pressure has improved significantly from previous with her weight loss Continue Lisinopril 10 mg QD As she currently appears to be experiencing symptoms of orthostasis, will have her HOLD her Amlodipine 2.5 mg QD Patient is reminded to continue monitoring her blood pressure regularly (5) Elevated LFTs: Code(s): R79.89 - Other specified abnormal findings of blood chemistry Plan: Improved; her LFTs have remained normal on her recent labs - was most likely due to her weight and high triglyceride level Will continue to monitor her LFTs regularly (6) Right knee pain: Code(s): M25.561 - Pain in right knee Qualifiers: Chronicity: unspecified Qualified Code(s): M25.561 - Pain in right knee Plan: States that her right knee bothers her more when she is going up and down stairs Will send her for right knee x-rays for further evaluation (7) Left knee pain: Code(s): M25.562 - Pain in left knee Qualifiers: Chronicity: unspecified Qualified Code(s): M25.562 - Pain in left knee Plan: X-rays of her left knee done back in December 2022 revealed (+) joint effusion with minimal degenerative changes States that her knee pain has mostly subsided since but her right knee is the one bothering her more recently (8) Vitamin D deficiency: Code(s): E55.9 - Vitamin D deficiency, unspecified Plan: Corrected - continue Vitamin D3 2000 units QD (9) Thyroid mass: Code(s): E07.9 - Disorder of thyroid, unspecified Plan: Thyroid US done in October 2021 revealed subcentimeter spongiform nodules and colloid cysts that do NOT require follow up imaging studies Repeat thyroid US in June 2023 came out normal although there is an area of concern at the level of the hyoid bone which is slightly superior to the thyroid and was not definitively imaged - consider correlation with a repeat soft tissue neck ultrasound for further evaluation (10) 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 Plan: Thyroid US done in June 2023 came out normal although there is an area of concern at the level of the hyoid bone which is slightly superior to the thyroid and was not definitively imaged - consider correlation with a repeat soft tissue neck ultrasound for further evaluation Per recommendation, will send her for a soft tissue neck US for further evaluation (11) Obesity (BMI 30-39.9): Code(s): E66.9 - Obesity, unspecified Plan: Reinforced diet/exercise as tolerated/lose weight - patient has been able to lose about 15 pounds of weight since her last visit Plan Follow up in 4 months Orders: Orders [facility]. Panel Fast 4 Months E78.00 - Pure hypercholesterolemia, unspecified Hemoglobin A1c 4 Months E11.9 - Type 2 diabetes mellitus without complications TSH reflex Free T4 4 Months E78.00 - Pure hypercholesterolemia, unspecified UA CC w/rflx Micro + Cult 4 Months R30.0 - Dysuria Vitamin D 25-OH Total 4 Months E55.9 - Vitamin D deficiency, unspecified US soft tiss head and/or neck Today R93.89 - Abnormal findings on diagnostic imaging of other specified body structures XR knee RT 4V Today M25.561 - Pain in right knee Complete Blood Count Auto Diff 4 Months D64.9 - Anemia, unspecified Microalbumin, Random (w Creat) 4 Months E11.9 - Type 2 diabetes mellitus without complications Lipid Panel 4 Months E78.00 - Pure hypercholesterolemia, unspecified Coding Level of Care Code Est Pt Level 4 (33148) Diagnoses Facial paralysis/Grafton palsy G51.0 Type 2 diabetes mellitus with hyperglycemia, without long-term current use of insulin E11.65 Diabetes mellitus type: type 2 Diabetes mellitus longterm insulin use: without supervisor intermediates use Diabetes mellitus complication status: with hyperglycemia Mixed hyperlipidemia E78.2 Benign essential hypertension I10 Elevated LFTs R79.89 Right knee pain, unspecified chronicity M25.561 Chronicity: unspecified Left knee pain, unspecified chronicity M25.562 Chronicity: unspecified Vitamin D deficiency E55.9 Thyroid mass E07.9 Ectopic thyroid tissue Q89.2 Obesity (BMI 30-39.9) E66.9
== END 2023-08-21 10:32 | disposition home or self-care (01) ==
PROVIDERS: PCP Internal Medicine; Visit Provider Internal Medicine
DX: G51.0 Bell's palsy (principal); E11.65 Type 2 diabetes mellitus with hyperglycemia; E66.9 Obesity, unspecified; Z68.32 Body mass index [BMI] 32.0-32.9, adult; E78.2 Mixed hyperlipidemia; I10 Essential (primary) hypertension; R79.89 Other specified abnormal findings of blood chemistry; M25.561 Pain in right knee; M25.562 Pain in left knee; E55.9 Vitamin D deficiency, unspecified; E07.9 Disorder of thyroid, unspecified
CPT/HCPCS: 99214

== ENCOUNTER 2023-08-24 09:48 | Outpatient (REF) | payer OTHER, SELFPAY ==
--- NOTE | ~2023-08-24 | US_ITS ---
EXAMINATION: US SOFT TISSUE HEAD/NECK CLINICAL INFORMATION: Area inferior to the hyoid bone seen on CT. Area of concern at the level of the hyoid bone, which is slightly superior to the thyroid, is not definitively imaged on CT. Consider correlation with a repeat soft tissue neck ultrasound. COMPARISON: Thyroid ultrasound 06/14/2023. CTA neck 05/15/2023. TECHNIQUE: Linear transducer ramsey-scale and color Doppler examination with attention to the region of concern in the strap muscle inferior to the hyoid bone. FINDINGS: There is a 1.7 x 1.3 x 1.0 cm vascular midline heterogeneous nodule seen. This corresponds to the findings seen on the CT scan which measured up to 1.6 cm in greatest dimension. US/US soft tiss head and/or neck IMPRESSION: The nodule seen on the CT scan corresponds to a 1.7 cm vascular midline nodule. The etiology is uncertain. This is certainly amenable to ultrasound-guided biopsy if further evaluation is needed.
== END 2023-08-24 09:49 | disposition home or self-care (01) ==
LOC: HO.HMGCX 09:48
PROVIDERS: PCP Internal Medicine; Visit Provider Internal Medicine
DX: R93.89 Abnormal findings on diagnostic imaging of other specified body structures (principal)
CPT/HCPCS: 76536

== ENCOUNTER 2023-08-25 08:36 | Outpatient (REF) | payer OTHER, SELFPAY ==
--- NOTE | ~2023-08-25 | XR_ITS ---
EXAMINATION: XR KNEE, RIGHT CLINICAL INFORMATION: Pain in the right knee COMPARISON: None available. TECHNIQUE: Four views of the right knee. FINDINGS: Minimal marginal osteophytes but patellofemoral compartment indicative of mild osteoarthritis. The medial and lateral compartments are normal No fracture or joint effusion. XR/XR knee RT 4V IMPRESSION: Mild osteoarthritis of the right knee.
== END 2023-08-25 08:37 | disposition home or self-care (01) ==
LOC: HO.XRAY 08:36
PROVIDERS: PCP Internal Medicine; Visit Provider Internal Medicine
DX: M25.561 Pain in right knee (principal)
CPT/HCPCS: 73564

== ENCOUNTER 2023-09-11 07:53 | Outpatient (REF) | payer OTHER, SELFPAY | END 2023-09-11 07:54 | disposition home or self-care (01) | LOC: HO.MAMMO 07:53 | PROVIDERS: PCP Internal Medicine; Visit Provider Internal Medicine | DX: Z12.31 Encounter for screening mammogram for malignant neoplasm of breast (principal) | CPT/HCPCS: 77063; 77067 ==

== ENCOUNTER → 2023-09-11 08:00 | Outpatient (BNV) | payer OTHER, SELFPAY | PROVIDERS: PCP Internal Medicine; Visit Provider Radiology Diagnostic Radiology | DX: Z12.31 Encounter for screening mammogram for malignant neoplasm of breast (principal) | CPT/HCPCS: 77063; 77067 ==

== ENCOUNTER 2023-09-18 08:36 | Outpatient (AMB) | payer OTHER, SELFPAY ==
--- NOTE | 2023-09-18 08:40 | A.OFFVIS_ITS ---
Vital Signs 09/18/23 08:46 Height 5 ft 7 in Weight 208 lb BMI 32.6 BP 126/81 Blood Pressure Location Rt brachial Position Sitting Pulse 98 Intake Visit Reasons: MM BI~ 09-11-23 Intake Note: Patient here for 6m breast exam. Recent MM 09-11-23. Reports bx from Mid chest bx healed well. Patient c/o: bruises on breasts that come and go. Cable Repairer Required: No Accompanied by: Self / Same As Patient Allergies oxycodone Allergy (Unknown, Verified 09/18/23 08:46) palpitations HPI Comments Details: Patient presents for breast surveillance evaluation. She has no breast issues or complaints. Recent mammogram was within normal limits. [facility] Medical History (Updated 08/21/23 @ 10:49 by Junior Nicolas MD) Left knee pain Facial paralysis/Rhodes palsy Mixed hyperlipidemia Obesity (BMI 30-39.9) Vitamin D deficiency Elevated LFTs Benign essential hypertension Pure hypercholesterolemia Diabetes mellitus Surgical History (Updated 09/18/23 @ 08:47 by Dale Gurrola MD) History of section History of tonsillectomy and adenoidectomy Family History Father Hypertension CVD (cardiovascular disease) Mother Medical history unknown Maternal Grandmother No problems noted. Maternal Grandfather No problems noted. 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 No periclavicular cervical or axillary adenopathy bilaterally GI Other: Abdomen corpulent, soft, benign Assessment & Plan Assessment & Plan (1) Breast cancer screening: Comment: States she had breast biopsies which were negative this year has Q 6 month follow-up all set up. Code(s): Z12.39 - Encounter for other screening for malignant neoplasm of breast Category: Surgical Plan Current plan is see the patient in 1 years time followed by her screening mammography. She is encouraged to do monthly breast exams. All questions answered. Coding Level of Care Code Est Pt Level 4 (18009) Diagnoses Breast cancer screening Z12.39
[2023-09-18 08:46] VITALS: BP 126/81; PULSE 98; BMI 32.6
== END 2023-09-18 08:49 | disposition home or self-care (01) ==
PROVIDERS: PCP Internal Medicine; Visit Provider Surgery
DX: Z12.39 Encounter for other screening for malignant neoplasm of breast (principal)
CPT/HCPCS: 99213

== ENCOUNTER → 2023-09-18 08:36 | Outpatient (BNVA) | payer OTHER, SELFPAY | PROVIDERS: PCP Internal Medicine; Visit Provider Surgery ==

== ENCOUNTER 2023-12-28 07:29 | Outpatient (REF) | payer OTHER, SELFPAY ==
[2023-12-28 07:42] LABS: MANUAL DIFF FLAG NO
[2023-12-28 07:54] LABS: Basophils Percent Auto 0.3 % (0-2); Eosinophils Absolute Auto 0.1 X10*3/uL (0.0-0.4); Eosinophils Percent Auto 1.2 % (0-4); Hematocrit 39.8 % (37.0-47.0); Hemoglobin 13.1 g/dl (12.0-16.0); Imm Gran Abs Auto 0.01 X10*3/uL (0.00-0.03); Imm Gran Pct Auto 0.2 % (0.0-0.4); Lymphocytes Absolute Auto 2.6 X10*3/uL (1.2-4.9); Lymphocytes Percent Auto 42.5 % (20-40); Mean Corpuscular HGB Conc 32.9 g/dl (31.0-35.0); Mean Corpuscular Volume 88.1 fL (80.0-98.0); Mean Platelet Volume 8.9 fL (9.4-12.3); Monocytes Absolute Auto 0.4 X10*3/uL (0.1-1.2); Monocytes Percent Auto 6.1 % (2-11); Neutrophils Percent Auto 49.7 % (45-73); Platelet Count 365 X10*3/uL (160-400); Red Blood Count 4.52 X10*6/uL (4.20-5.50); Red Cell Distribution Width 12.7 % (11.0-16.0); White Blood Count 6.1 X10*3/uL (4.8-10.8)
[2023-12-28 07:58] LABS: Estimated Average Glucose 108 mg/dL; Hemoglobin A1c % 5.4 % (<6.0)
[2023-12-28 08:27] LABS: Alanine Aminotransferase 13 U/L (0-31); Albumin Level 4.2 g/dL (3.5-5.0); Alkaline Phosphatase 53 U/L (39-117); Anion Gap 10 (12-20); Aspartate Amino Transferase 16 U/L (5-31); Bilirubin Total 0.7 mg/dL (0.0-1.0); Blood Urea Nitrogen 16 mg/dL (9-16); Calcium 9.3 mg/dL (8.4-10.2); Carbon Dioxide 28 mmol/L (22-29); Chloride 108 mmol/L (96-108); Cholesterol 116 mg/dL (<200); Estimated Glomerular Filt Rate > 60; Glucose Fasting 101 mg/dL (60-99); HDL Cholesterol 40 mg/dL (>40); LDL Cholesterol Calculated 59 mg/dL (<100); Potassium 4.3 mmol/L (3.3-5.1); Sodium 142 mmol/L (135-145); Total Protein 7.3 g/dL (6.5-8.0); Triglycerides 87 mg/dL (<150)
[2023-12-28 08:43] LABS: Vitamin D 25-OH Total 45.5 ng/mL (>30)
[2023-12-28 10:26] LABS: Appearance Urine Cloudy; Color Urine Yellow; Glucose Urine UA >=1000 mg/dL (Negative); Leukocyte Esterase Urine Small (1+) (Negative); Nitrite Urine Negative (Negative); PH 5.5 (5.0-9.0); Specific Gravity - Urine 1.025 (1.005-1.025); UMIC TRIGGER UACC YES; Urine Blood Large (3+) (Negative); Urine Ketones Negative (Negative); Urine Protein Trace mg/dL (Neg-Trace)
[2023-12-28 10:35] LABS: Creatinine Urine 80.81 mg/dL; Microalbum/Creatinine Ratio Ur 40.8 ug/mg cr (<30)
[2023-12-28 10:38] LABS: Bacteria Urine 2+ (None Seen); Hyaline Casts Urine 0-2 /LPF (0-2); RBC Urine 0-2 /HPF (0-2); UACC Culture Trigger YES; WBC Urine 0-5 /HPF (0-5)
== END 2023-12-28 07:30 | disposition home or self-care (01) ==
LOC: HO.LAB 07:29
PROVIDERS: PCP Internal Medicine; Visit Provider Internal Medicine
DX: E78.00 Pure hypercholesterolemia, unspecified (principal); E11.9 Type 2 diabetes mellitus without complications; E55.9 Vitamin D deficiency, unspecified; D64.9 Anemia, unspecified; I10 Essential (primary) hypertension; R30.0 Dysuria
CPT/HCPCS: 36415; 80053; 80061; 81001; 81003; 82043; 82306; 82570; 83036; 84443; 85025; 87086

== ENCOUNTER 2023-12-29 09:30 | Outpatient (AMB) | payer OTHER, SELFPAY ==
[2023-12-29 09:47] VITALS: BP 124/84; PULSE 96; O2SAT 97; BMI 30.4
--- NOTE | 2023-12-29 09:47 | MHC.PC.OV ---
Vital Signs 12/29/23 09:47 Height 5 ft 7 in Weight 194 lb 4 oz BMI 30.4 BP 124/84 Blood Pressure Location Lt brachial Position Sitting Pulse 96 Pulse Source Pulse Oximeter Pulse Oximetry (%) 97 Oxygen Delivery Method Room Air Intake Visit Reasons: DM, hyperlipidemia, HTN Rehab Director Required: No Accompanied by: Self / Same As Patient Allergies oxycodone Allergy (Unknown, Verified 12/29/23 10:36) palpitations Medication List - Last Reconciled 12/29/23 by Junior Nicolas MD amlodipine 2.5 mg See Protocol PO DAILY atorvastatin 80 mg (2 x 40 mg) PO DAILY blood sugar diagnostic (FreeStyle Lite Strips) As directed blood-glucose meter (FreeStyle Lite Meter kit) As directed cholecalciferol (vitamin D3) 50 mcg PO DAILY 90 days empagliflozin (Jardiance) 25 mg PO DAILY lisinopril 10 mg PO DAILY metformin ER 1,000 mg (2 x 500 mg) PO BID pioglitazone 30 mg (2 x 15 mg) PO DAILY semaglutide (Ozempic) 1 mg (0.75 mL) subcut QWEEK 4 weeks valacyclovir 1,000 mg PO TID Tobacco use date assessed: 12/29/23 Dental Screening Dental Screen Date: 12/29/23 Did you have a dental visit in the last 12 months?: Yes Did you have a dental problem in the last 6 months where you did not have access to dental care?: No Was dental information given to patient?: Patient has dentist HPI DM, hyperlipidemia, HTN HPI Details Patient comes in today for her follow up visit States that she feels okay She denies any headaches but reports (+) recurrent transient dizziness lately when she gets up too quickly (from sitting or lying down) She denies any chest pains, no SOB No nausea/vomiting, no abdominal pain No change in bowel habits noted She continues to experience frequent pain in her right knee, especially when she is going up and down stairs - states that this has been going on for months now and does not feel like it is getting any better lately She denies any recent injury or trauma to her knee Would also like to know how her thyroid US done a couple of months ago came out Had her follow up labs done a few days ago - to discuss her results [facility] Medical History (Updated 12/29/23 @ 12:03 by Junior Nicolas MD) Primary osteoarthritis of knees, bilateral 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 Maternal Grandfather No problems noted. 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 1. Little interest or pleasure in doing things: not at all 2. Feeling down, depressed, or hopeless: not at all 3. Trouble falling or staying asleep, or sleeping too much: not at all 4. Feeling tired or having little energy: not at all 5. Poor appetite or overeating: not at all 6. Feeling bad about yourself - or that you are a failure or have let yourself or your family down: not at all 7. Trouble concentrating on things, such as reading the newspaper or watching television: not at all 8. Moving or speaking so slowly that other people could have noticed. Or the opposite - being so fidgety or restless that you have been moving around a lot more than usual: not at all 9. Thoughts that you would be better off or of hurting yourself in some way: not at all Total score: 0 Depression Screening Interpretation: Negative Depression Screening Done: Yes 05354 - PHQ-9 Billing: Yes Source: Developed by Drs. Ja Young, Ale Green, Morgan De La Cruz and colleagues, with an educational daniel from [employer]. Thrive Questionnaire Date Thrive assessed: 12/29/23 I am a: Patient What is your living situation today?: I have a steady place to live Within the past 12 months, did the food you bought not last and you didn't have the money to get more?: Never true Within the past 12 months, did you worry whether your food would run out before you got money to buy more?: Never true Do you have trouble paying for medicines?: No Do you have trouble getting transportation to medical appointments?: No Do you have trouble paying your heating and electricity bill?: No Do you have trouble taking care of your child, family member or friend?: No Do you have trouble with day-to-day activities such as bathing, preparing meals, shopping, managing finances, etc.?: No Are you currently unemployed and looking for a job?: No Are you interested in more education?: No Please select the resources that you would like help with: None Currently or been in a relationship where the following occur: No concerns reported THRIVE Score: 0 AUDIT C Alcohol Use Questionnaire (AUDIT-C) 1. How often do you have a drink containing alcohol?: Never 3. How often do you have six or more drinks on one occasion?: Never Total Score: 0 Score Reviewed/Action Taken: Yes ZOILA-7 AMB Questionnaire ZOILA-7 Date ZOILA - 7 assessed: 12/29/23 Feeling nervous, anxious, or on edge: 0 = Not at all Not being able to stop or control worryin = Not at all Worrying too much about different things: 0 = Not at all Trouble relaxin = Not at all Being so restless that it is hard to sit still: 0 = Not at all Becoming easily annoyed or irritable: 0 = Not at all Feeling afraid as if something awful might happen: 0 = Not at all Total ZOILA-7 score (0-4 normal; 5-9 mild; 10-14 moderate; 15-21 severe): 0 Source: Developed by Drs. Ja Young, Morgan James and colleagues, with an educational daniel from [employer]. Review of Systems Const Denies chills, Denies fatigue, Denies fever(s) and Denies headache(s) ENT Denies dysphagia, Denies dizziness, Denies otalgia, Denies headache(s), Denies neck pain, Denies odynophagia and Denies sore throat Card Denies chest pain, Denies rapid heart rate, Denies irregular heart rhythm, Denies palpitations and Denies dyspnea Resp Denies cough, Denies dyspnea and Denies wheezing GI Denies abdominal pain, Denies constipation, Denies dysphagia, Denies heartburn, Denies diarrhea, Denies nausea, Denies odynophagia and Denies vomiting Denies urinary frequency, Denies dysuria, Denies urinary incontinence and Denies urinary urgency Musc Denies back pain, Reports arthralgias (over the right knee, on and off), Denies joint swelling and Denies neck pain Skin/Breast Denies rash Neuro Details: (+) left facial drooping and numbness Denies dizziness, Denies headache(s) and Denies paresthesias Psych Denies anxiety and Denies depression Endo Denies fatigue and Denies palpitations Anirudh/Lymph Denies easy bruising Aller/Immun Denies wheezing Physical exam (Primary Care) Vital Signs: Last Vital Signs Pulse 96 12/29/23 09:47 BP 124/84 12/29/23 09:47 Pulse Ox 97 12/29/23 09:47 Oxygen Delivery Method Room Air 12/29/23 09:47 BMI result Body Mass Index 30.4 Tobacco/Smoking Status: Tobacco use Status Tobacco use date assessed 12/29/23 12/29/23 09:49 Patient Tobacco Use Status Never used Tobacco 12/29/23 09:49 e-Cigarette/Vaping Use Never Used 12/29/23 09:49 PHQ-9: PHQ-9 Score PHQ-9: Total score 0 12/29/23 10:42 Depression Screening Interpretation: Negative Thrive Assessment: Date of Thrive Assessment Date Thrive assessed 12/29/23 12/29/23 09:49 Currently or been in a relationship where the following occur: No concerns reported Const General: no acute distress and alert HENMT Ears: TM's normal bilaterally and EAC's normal Throat: Yes posterior oropharynx normal and Yes tonsils normal (no TP congestion) Neck Neck: Yes no lymphadenopathy and Yes supple Thyroid: Thyroid normal Resp Auscultation: clear to auscultation bilaterally, no rales and no wheezes Cardio Rate: regular rate Rhythm: regular rhythm Heart sounds: no murmurs GI Palpation (GI): Soft to palpation and nontender Auscultation: normal bowel sounds General: Yes no CVA tenderness Back/Spine/Pelvis Back: no CVA tenderness Thoracic/Lumbar Spine: thoracic and lumbar spine normal to inspection Skin Rashes: no rashes Extrem General: Yes no clubbing, cyanosis or edema Right lower extremity: knee Details: normal ROM; no tenderness and no swelling Results Reviewed Results Reviewed: Laboratory Tests 12/28/23 12/28/23 07:35 07:41 WBC 6.1 Hgb 13.1 Hct 39.8 Plt Count 365 Sodium 142 Potassium 4.3 Creatinine 0.80 Estimated GFR > 60 Fasting Glucose 101 H Hemoglobin A1c % 5.4 Calcium 9.3 D AST 16 ALT 13 Triglycerides 87 Cholesterol 116 LDL Cholesterol, Calc 59 HDL Cholesterol 40 L 25-OH Vitamin D Total 45.5 TSH 1.30 Ur Specific [place] 1.025 Urine Protein Trace Urine Glucose (UA) >=1000 H Urine Blood Large (3+) H Urine Nitrite Negative Ur Leukocyte Esterase Small (1+) H Microalb/Creat Ratio 40.8 H Assessment and Plan Assessment & Plan (1) Diabetes mellitus: Code(s): E11.9 - Type 2 diabetes mellitus without complications Qualifiers: Diabetes mellitus complication status: with hyperglycemia Diabetes mellitus intermediate insulin use: without intermediate use Diabetes mellitus type: type 2 Qualified Code(s): E11.65 - Type 2 diabetes mellitus with hyperglycemia Plan: Her HgbA1c has improved further to 5.4% on her labs done yesterday (was at 6.2% a few months ago) - goal is at least < 7.0% Reinforced diabetic diet Continue Metformin ER 500 mg 2 tablets BID, Pioglitazone 30 mg QD, Jardiance 25 mg QD and Ozempic 1 mg SQ once a week Have advised patient that if her HgbA1c continues to stay low (at least <5.8%), can consider taking her off some of her diabetes meds but I will defer that to her treating 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 Boss) as scheduled (2) Mixed hyperlipidemia: Code(s): E78.2 - Mixed hyperlipidemia Plan: Results of her labs done yesterday reviewed and discussed with patient Reinforced low cholesterol diet Continue Fenofibrate 150 mg QD and Atorvastatin 80 mg QD Will recheck her labs and fasting lipids in 4 months for follow up (3) Benign essential hypertension: Code(s): I10 - Essential (primary) hypertension Plan: Reinforced low sodium diet - goal is systolic BP of 120 mm or less Continue Lisinopril 10 mg QD Her Amlodipine 2.5 mg was held at her last visit due to orthostatic symptoms - patient states that she has not had any further recurrence of her dizziness since - will go ahead and discontinue her Amlodipine at this time Patient is reminded to continue monitoring her blood pressure regularly (4) Elevated LFTs: Code(s): R79.89 - Other specified abnormal findings of blood chemistry Plan: Improved; her LFTs have remained normal on her recent labs - this was most likely due to her weight and high triglyceride level Will continue to monitor her LFTs regularly (5) Primary osteoarthritis of knees, bilateral: Code(s): M17.0 - Bilateral primary osteoarthritis of knee Plan: X-rays of her left knee done back in December 2022 revealed (+) joint effusion with minimal degenerative changes States that her knee pain has mostly subsided since and her right knee is the one that has been bothering her more often lately Right knee x-rays done a few months ago (August 2023) revealed (+) mild osteoarthritis of the right knee in the patellofemoral compartment There are mostly minimal marginal osteophytes and the medial and lateral compartments are normal Have advised her that losing weight should help ease up on her knee symptoms and that exercising her right knee joint regularly should help her manage her symptoms better as well Will consider referring her to orthopedics only if her knee symptoms progress or get worse (6) Vitamin D deficiency: Code(s): E55.9 - Vitamin D deficiency, unspecified Plan: Continue Vitamin D3 2000 units QD (7) Thyroid mass: Code(s): E07.9 - Disorder of thyroid, unspecified Plan: Thyroid US done in October 2021 revealed subcentimeter spongiform nodules and colloid cysts that do NOT require follow up imaging studies Repeat thyroid US in June 2023 came out normal although there is an area of concern at the level of the hyoid bone which is slightly superior to the thyroid and was not definitively imaged - consider correlation with a repeat soft tissue neck ultrasound for further evaluation This was done a few months ago (August 2023) and revealed that the nodule seen on prior scan corresponds to a 1.7 cm vascular midline nodule of which the etiology is uncertain. This is certainly amenable to ultrasound-guided biopsy if further evaluation is needed As we are still unclear as to what the nodule actually is, will refer her to vascular surgery for further recommendations and to see if further Bx is warranted or not (8) Obesity (BMI 30-39.9): Code(s): E66.9 - Obesity, unspecified Plan: Reinforced diet/exercise as tolerated/lose weight - patient has been able to lose some more weight since her last visit Plan Follow up in 4 months Orders: Orders Complete Blood Count Auto Diff 4 Months D64.9 - Anemia, unspecified Comprehensive [place]. Panel Fast 4 Months E78.00 - Pure hypercholesterolemia, unspecified Hemoglobin A1c 4 Months E11.9 - Type 2 diabetes mellitus without complications UA CC w/rflx Micro + Cult 4 Months R30.0 - Dysuria Vitamin D 25-OH Total 4 Months E55.9 - Vitamin D deficiency, unspecified Lipid Panel 4 Months E78.00 - Pure hypercholesterolemia, unspecified Microalbumin, Random (w Creat) 4 Months E11.9 - Type 2 diabetes mellitus without complications TSH reflex Free T4 4 Months E78.00 - Pure hypercholesterolemia, unspecified Referrals Vascular Surgery Referral R22.1 - Localized swelling, mass and lump, neck Medications: Discontinued amlodipine Discontinued Reason: Doctor's Order 2.5 mg See Protocol PO DAILY 30 tabs 0RF Coding Level of Care Code Est Pt Level 4 (05281) Complex EM visit Add On G2211 Diagnoses Type 2 diabetes mellitus with hyperglycemia, without long-term current use of insulin E11.65 Diabetes mellitus complication status: with hyperglycemia Diabetes mellitus long term care administrator insulin use: without intermediate use Diabetes mellitus type: type 2 Mixed hyperlipidemia E78.2 Benign essential hypertension I10 Elevated LFTs R79.89 Primary osteoarthritis of knees, bilateral M17.0 Vitamin D deficiency E55.9 Thyroid mass E07.9 Obesity (BMI 30-39.9) E66.9
== END 2023-12-29 10:44 | disposition home or self-care (01) ==
PROVIDERS: PCP Internal Medicine; Visit Provider Internal Medicine
DX: E11.65 Type 2 diabetes mellitus with hyperglycemia (principal); E78.2 Mixed hyperlipidemia; E66.9 Obesity, unspecified; Z68.30 Body mass index [BMI] 30.0-30.9, adult; I10 Essential (primary) hypertension; R79.89 Other specified abnormal findings of blood chemistry; M17.0 Bilateral primary osteoarthritis of knee; E55.9 Vitamin D deficiency, unspecified; E07.9 Disorder of thyroid, unspecified

== ENCOUNTER → 2023-12-29 09:30 | Outpatient (BNVA) | payer OTHER, SELFPAY | PROVIDERS: PCP Internal Medicine; Visit Provider Internal Medicine | DX: E11.65 Type 2 diabetes mellitus with hyperglycemia (principal); E78.2 Mixed hyperlipidemia; I10 Essential (primary) hypertension; R79.89 Other specified abnormal findings of blood chemistry; M17.0 Bilateral primary osteoarthritis of knee; E55.9 Vitamin D deficiency, unspecified; E07.9 Disorder of thyroid, unspecified; E66.9 Obesity, unspecified; Z68.30 Body mass index [BMI] 30.0-30.9, adult; Z79.84 Long term (current) use of oral hypoglycemic drugs; Z79.899 Other long term (current) drug therapy | CPT/HCPCS: 96127 ==

== ENCOUNTER 2024-03-21 14:11 | Outpatient (AMB) | payer OTHER, SELFPAY ==
--- NOTE | 2024-03-21 14:28 | A.OFFVIS_ITS ---
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 States she had an ultrasound about 3 months ago and her doctor referred her to see Dr Blevins. 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 She reports that it may have grown in size since that time. She does not have any difficulty swallowing. She has no history of prior head and neck surgery or radiation as well. 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 Maternal Grandfather No problems noted. 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 Sexual orientation: Straight/Heterosexual Gender identity: Female Cognitive needs: No Hearing needs: No Vision needs: Yes (glasses) Review of Systems Const All systems reviewed & are unremarkable except as noted in HPI and below Reports no additional complaints ENT Reports Normal hearing present Card Denies chest pain, Denies chest pain at rest, Denies chest pain with activity and Denies pedal edema Resp Denies cough GI Denies abdominal pain Musc Denies abnormal gait, Denies muscle cramps and Denies radiating pain into limb Skin/Breast Denies skin ulcer and Denies wounds Neuro Reports Normal hearing present and Denies abnormal gait Psych Reports no additional complaints Physical Exam Const General: cooperative, healthy appearing and comfortable Orientation/consciousness: oriented to person, oriented to place and oriented to time HEENT Other: Midline nodule noted. Bedside ultrasound with pulse wave Doppler was performed. Minimal flow noted within the nodule Head: Yes normal to inspection Neck Neck: Yes normal visual inspection Carotids: no bruits Chest Chest palpation & inspection: normal inspection of the chest Resp Effort & Inspection: normal respiratory effort and able to speak in complete sentences Auscultation: clear to auscultation bilaterally, no crackles, no rales, no rhonchi and no wheezes Cardio Rate: regular rate Rhythm: regular rhythm Heart sounds: S1 normal heart sound present and S2 normal heart sound present Bruits: no carotid bruits Peripheral pulses: Peripheral pulses 2+ throughout GI Inspection: Yes normal to inspection Skin Wounds: no wounds Hair: normal Neuro General: oriented to person, oriented to place and oriented to time Cranial nerves: Yes CN's II-XII intact bilaterally and Yes Normal hearing present Cognition (Neuro): normal cognition Motor exam (neuro): 5/5 motor strength present throughout Extrem Other: venous exam: No significant superficial varicosities or spider telangiectasias, minimal edema General: No clubbing, No cyanosis and No edema Psych Appearance: grossly normal Mental Status: mental status grossly normal Speech and movement: Normal speech and movement present Assessment & Plan Assessment & Plan (1) Neck nodule: Code(s): R22.1 - Localized swelling, mass and lump, neck Category: Medical Plan: In short the patient has a stable neck nodule. It appears to have minimal vascular flow. I would recommend IR biopsy to further elucidate the nature of this. May need further evaluation by ENT. Yanira from a vascular perspective. She will follow up with us on an as-needed basis. Thank you for allowing us to assist in her care. Please note tiger text was sent to Dr. Nicolas Coding Level of Care Code New Pt Level 4 (04511) Diagnoses Neck nodule R22.1
== END 2024-03-21 14:45 | disposition home or self-care (01) ==
PROVIDERS: PCP Internal Medicine; Visit Provider Surgery Vascular Surgery
DX: R22.1 Localized swelling, mass and lump, neck (principal)
CPT/HCPCS: 99204

== ENCOUNTER → 2024-03-21 14:11 | Outpatient (BNVA) | payer OTHER, SELFPAY | PROVIDERS: PCP Internal Medicine; Visit Provider Surgery Vascular Surgery ==

== ENCOUNTER 2024-04-29 08:03 | Outpatient (REF) | payer OTHER, SELFPAY ==
[2024-04-29 08:20] LABS: MANUAL DIFF FLAG NO
[2024-04-29 08:34] LABS: Appearance Urine Cloudy; Color Urine Yellow; Glucose Urine UA >=1000 mg/dL (Negative); Leukocyte Esterase Urine Small (1+) (Negative); Nitrite Urine Negative (Negative); PH 6.5 (5.0-9.0); Specific Gravity - Urine >= 1.030 (1.005-1.025); UMIC TRIGGER UACC YES; Urine Blood Small (1+) (Negative); Urine Ketones Negative (Negative); Urine Protein Negative (Neg-Trace)
[2024-04-29 08:35] LABS: Basophils Percent Auto 0.4 % (0-2); Eosinophils Absolute Auto 0.1 X10*3/uL (0.0-0.4); Eosinophils Percent Auto 0.9 % (0-4); Hematocrit 39.4 % (37.0-47.0); Hemoglobin 12.9 g/dl (12.0-16.0); Imm Gran Abs Auto 0.02 X10*3/uL (0.00-0.03); Imm Gran Pct Auto 0.3 % (0.0-0.4); Lymphocytes Absolute Auto 2.8 X10*3/uL (1.2-4.9); Lymphocytes Percent Auto 39.9 % (20-40); Mean Corpuscular HGB Conc 32.7 g/dl (31.0-35.0); Mean Corpuscular Hemoglobin 28.4 pg (27.0-33.0); Mean Corpuscular Volume 86.8 fL (80.0-98.0); Mean Platelet Volume 9.1 fL (9.4-12.3); Monocytes Absolute Auto 0.4 X10*3/uL (0.1-1.2); Monocytes Percent Auto 5.6 % (2-11); Neutrophils Absolute Auto 3.7 x10*3/uL (2.0-8.3); Neutrophils Percent Auto 52.9 % (45-73); Platelet Count 351 X10*3/uL (160-400); Red Blood Count 4.54 X10*6/uL (4.20-5.50); Red Cell Distribution Width 12.4 % (11.0-16.0); White Blood Count 6.9 X10*3/uL (4.8-10.8)
[2024-04-29 08:40] LABS: Estimated Average Glucose 108 mg/dL; Hemoglobin A1C 118.1504 umol/L; Hemoglobin A1c % 5.4 % (<6.0); Total Hemoglobin (HGBA1C) 3325.2598 umol/L
[2024-04-29 08:46] LABS: Bacteria Urine 4+ (None Seen); Hyaline Casts Urine 0-2 /LPF (0-2); RBC Urine 0-2 /HPF (0-2); UACC Culture Trigger YES; WBC Urine 0-5 /HPF (0-5)
[2024-04-29 08:59] LABS: Creatinine Urine 106.57 mg/dL
[2024-04-29 09:02] LABS: Alanine Aminotransferase 28 U/L (0-31); Albumin Level 4.1 g/dL (3.5-5.0); Alkaline Phosphatase 71 U/L (39-117); Anion Gap 10 (12-20); Aspartate Amino Transferase 25 U/L (5-31); Bilirubin Total 0.5 mg/dL (0.0-1.0); Blood Urea Nitrogen 14 mg/dL (9-16); Carbon Dioxide 26 mmol/L (22-29); Chloride 107 mmol/L (96-108); Cholesterol 131 mg/dL (<200); Estimated Glomerular Filt Rate > 60; Glucose Fasting 86 mg/dL (60-99); HDL Cholesterol 42 mg/dL (>40); LDL Cholesterol Calculated 69 mg/dL (<100); Potassium 4.1 mmol/L (3.3-5.1); Sodium 139 mmol/L (135-145); Total Protein 7.6 g/dL (6.5-8.0); Triglycerides 101 mg/dL (<150)
[2024-04-29 09:21] LABS: TSH reflex Free T4 2.22 uIU/mL (0.32-4.0); Vitamin D 25-OH Total 41.6 ng/mL (>30)
== END 2024-04-29 08:04 | disposition home or self-care (01) ==
LOC: HO.LAB 08:03
PROVIDERS: PCP Internal Medicine; Visit Provider Internal Medicine
DX: D64.9 Anemia, unspecified (principal); E78.00 Pure hypercholesterolemia, unspecified; E55.9 Vitamin D deficiency, unspecified; E11.9 Type 2 diabetes mellitus without complications; R30.0 Dysuria
CPT/HCPCS: 36415; 80053; 80061; 81001; 82043; 82306; 82570; 83036; 84443; 85025; 87086

== ENCOUNTER 2024-04-30 15:37 | Outpatient (AMB) | payer OTHER, SELFPAY ==
[2024-04-30 15:41] VITALS: BP 120/78; PULSE 91; O2SAT 98; BMI 31.4
--- NOTE | 2024-04-30 15:41 | A.OFFPC_ITS ---
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 Accompanied by: Self / Same As Patient Allergies oxycodone Allergy (Unknown, Verified 04/30/24 16:18) palpitations Medication List - Last Reconciled 04/30/24 by Junior Nicolas MD atorvastatin 80 mg (2 x 40 mg) PO DAILY blood sugar diagnostic (FreeStyle Lite Strips) As directed blood-glucose meter (FreeStyle Lite Meter kit) As directed cholecalciferol (vitamin D3) 50 mcg PO DAILY 90 days empagliflozin (Jardiance) 25 mg PO DAILY lisinopril 10 mg PO DAILY metformin ER 1,000 mg (2 x 500 mg) PO BID pioglitazone 30 mg (2 x 15 mg) PO DAILY semaglutide (Ozempic) 1 mg (0.75 mL) subcut QWEEK 4 weeks valacyclovir 1,000 mg PO TID Tobacco use date assessed: 04/30/24 Dental Screening Dental Screen Date: 04/30/24 Did you have a dental visit in the last 12 months?: Yes Did you have a dental problem in the last 6 months where you did not have access to dental care?: No Was dental information given to patient?: Patient has dentist HPI 4 Months F/U HPI Details Patient comes in today for her follow up visit States that she feels okay She denies any headaches or dizziness Denies any chest pains, no shortness of breath No nausea/vomiting, no abdominal pain No change in bowel habits noted She had her follow up labs done yesterday - to discuss her results [facility] Medical History Primary osteoarthritis of knees, bilateral 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 Maternal Grandfather No problems noted. 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 1. Little interest or pleasure in doing things: not at all 2. Feeling down, depressed, or hopeless: not at all 3. Trouble falling or staying asleep, or sleeping too much: not at all 4. Feeling tired or having little energy: not at all 5. Poor appetite or overeating: not at all 6. Feeling bad about yourself - or that you are a failure or have let yourself or your family down: not at all 7. Trouble concentrating on things, such as reading the newspaper or watching television: not at all 8. Moving or speaking so slowly that other people could have noticed. Or the opposite - being so fidgety or restless that you have been moving around a lot more than usual: not at all 9. Thoughts that you would be better off or of hurting yourself in some way: not at all Total score: 0 Depression Screening Interpretation: Negative Depression Screening Done: Yes 69411 - PHQ-9 Billing: Yes Source: Developed by Drs. Ja Young, Ale Green, Morgan De La Cruz and colleagues, with an educational daniel from [employer]. Thrive Questionnaire Date Thrive assessed: 04/30/24 I am a: Patient What is your living situation today?: I have a steady place to live Within the past 12 months, did the food you bought not last and you didn't have the money to get more?: Never true Within the past 12 months, did you worry whether your food would run out before you got money to buy more?: Never true Do you have trouble paying for medicines?: No Do you have trouble getting transportation to medical appointments?: No Do you have trouble paying your heating and electricity bill?: No Do you have trouble taking care of your child, family member or friend?: No Do you have trouble with day-to-day activities such as bathing, preparing meals, shopping, managing finances, etc.?: No Are you currently unemployed and looking for a job?: No Are you interested in more education?: No Please select the resources that you would like help with: None Currently or been in a relationship where the following occur: No concerns reported THRIVE Score: 0 AUDIT C Alcohol Use Questionnaire (AUDIT-C) 1. How often do you have a drink containing alcohol?: Never 3. How often do you have six or more drinks on one occasion?: Never Total Score: 0 Score Reviewed/Action Taken: Yes ZOILA-7 AMB Questionnaire ZOILA-7 Date ZOILA - 7 assessed: 04/30/24 Feeling nervous, anxious, or on edge: 0 = Not at all Not being able to stop or control worryin = Not at all Worrying too much about different things: 0 = Not at all Trouble relaxin = Not at all Being so restless that it is hard to sit still: 0 = Not at all Becoming easily annoyed or irritable: 0 = Not at all Feeling afraid as if something awful might happen: 0 = Not at all Total ZOILA-7 score (0-4 normal; 5-9 mild; 10-14 moderate; 15-21 severe): 0 Source: Developed by Drs. Ja Young, Ale Green, Morgan De La Cruz and colleagues, with an educational daniel from [employer]. Review of Systems Const Denies chills, Denies fatigue, Denies fever(s) and Denies headache(s) ENT Denies dysphagia, Denies dizziness, Denies otalgia, Denies headache(s), Denies neck pain, Denies odynophagia and Denies sore throat Card Denies chest pain, Denies irregular heart rhythm, Denies palpitations and Denies dyspnea Resp Denies chest congestion, Denies cough and Denies dyspnea GI Denies abdominal pain, Denies constipation, Denies dysphagia, Denies heartburn, Denies diarrhea, Denies nausea, Denies odynophagia and Denies vomiting Denies urinary frequency, Denies dysuria, Denies urinary incontinence and Denies urinary urgency Musc Denies back pain, Reports arthralgias (over the right knee, on and off), Denies joint swelling and Denies neck pain Skin/Breast Denies rash Neuro Details: (+) left facial drooping and numbness Denies dizziness, Denies headache(s) and Denies paresthesias Psych Denies anxiety and Denies depression Endo Denies fatigue and Denies palpitations Anirudh/Lymph Denies easy bruising Physical exam (Primary Care) Vital Signs: Last Vital Signs Pulse 91 04/30/24 15:41 BP 120/78 04/30/24 15:41 Pulse Ox 98 04/30/24 15:41 Oxygen Delivery Method Room Air 04/30/24 15:41 BMI result Body Mass Index 31.4 Tobacco/Smoking Status: Tobacco use Status Tobacco use date assessed 04/30/24 04/30/24 15:50 Patient Tobacco Use Status Never used Tobacco 04/30/24 15:50 e-Cigarette/Vaping Use Never Used 04/30/24 15:50 PHQ-9: PHQ-9 Score PHQ-9: Total score 0 05/06/24 01:19 Depression Screening Interpretation: Negative Thrive Assessment: Date of Thrive Assessment Date Thrive assessed 04/30/24 04/30/24 15:50 Currently or been in a relationship where the following occur: No concerns reported Const General: no acute distress and alert HENMT Ears: TM's normal bilaterally and EAC's normal Throat: Yes posterior oropharynx normal and Yes tonsils normal (no TP congestion) Neck Neck: Yes supple and No lymphadenopathy Thyroid: Thyroid normal Resp Auscultation: clear to auscultation bilaterally, no rales and no wheezes Cardio Rate: regular rate Rhythm: regular rhythm Heart sounds: no murmurs GI Palpation (GI): Soft to palpation and nontender Auscultation: normal bowel sounds General: Yes no CVA tenderness Back/Spine/Pelvis Back: no CVA tenderness Thoracic/Lumbar Spine: thoracic and lumbar spine normal to inspection Skin Rashes: no rashes Extrem General: Yes no clubbing, cyanosis or edema Right lower extremity: knee Details: normal ROM; no tenderness and no swelling Results Reviewed Results Reviewed: Laboratory Tests 04/29/24 04/29/24 08:15 08:18 WBC 6.9 Hgb 12.9 Hct 39.4 Plt Count 351 Sodium 139 Potassium 4.1 Creatinine 0.69 Estimated GFR > 60 Fasting Glucose 86 Hemoglobin A1c % 5.4 Calcium 9.0 AST 25 ALT 28 Triglycerides 101 Cholesterol 131 LDL Cholesterol, Calc 69 HDL Cholesterol 42 25-OH Vitamin D Total 41.6 TSH 2.22 Urine pH 6.5 Ur Specific [place] >= 1.030 H Urine Protein Negative Urine Glucose (UA) >=1000 H Urine Blood Small (1+) H Urine Nitrite Negative Ur Leukocyte Esterase Small (1+) H Microalb/Creat Ratio 14.0 Coding Level of Care Code Est Pt Level 4 (53945) Complex EM visit Add On G2211 Diagnoses Type 2 diabetes mellitus with hyperglycemia, without long-term current use of insulin E11.65 Diabetes mellitus complication status: with hyperglycemia 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: without intermodal truck driver use Diabetes mellitus type: type 2 Mixed hyperlipidemia E78.2 Benign essential hypertension I10 Elevated LFTs R79.89 Primary osteoarthritis of knees, bilateral M17.0 Vitamin D deficiency E55.9 Thyroid mass E07.9 Obesity (BMI 30-39.9) E66.9 Additional Codes PHQ-9 - 79104 - PHQ-9 Billing: Yes ([id number]) Assessment & Plan Assessment & Plan (1) Diabetes mellitus: Code(s): E11.9 - Type 2 diabetes mellitus without complications Category: Medical Qualifiers: Diabetes mellitus complication status: with hyperglycemia Diabetes mellitus detention insulin use: without intermodal truck driver use Diabetes mellitus type: type 2 Qualified Code(s): E11.65 - Type 2 diabetes mellitus with hyperglycemia Plan: Her HgbA1c was unchanged from previous at 5.4% on her labs done yesterday - goal is at least < 7.0% Reinforced diabetic diet Continue Metformin ER 500 mg 2 tablets BID, Pioglitazone 30 mg QD, Jardiance 25 mg QD and Ozempic 1 mg SQ once a week Have advised patient that if her HgbA1c continues to stay low (at least <5.8%), can consider taking her off some of her diabetes meds but 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 [place]) as scheduled (2) Mixed hyperlipidemia: Code(s): E78.2 - Mixed hyperlipidemia Category: Medical Plan: Results of her labs done yesterday reviewed and discussed with patient Reinforced low cholesterol diet Continue Fenofibrate 150 mg QD and Atorvastatin 80 mg QD Will recheck her labs and fasting lipids in 4 months for follow up (3) Benign essential hypertension: Code(s): I10 - Essential (primary) hypertension Category: Medical Plan: Reinforced low sodium diet - goal is systolic BP of 120 mm or less Continue Lisinopril 10 mg QD Her Amlodipine 2.5 mg was held at her last visit due to orthostatic symptoms - patient states that she has not had any further recurrence of her dizziness since - will go ahead and discontinue her Amlodipine at this time Patient is reminded to continue monitoring her blood pressure regularly (4) Elevated LFTs: Code(s): R79.89 - Other specified abnormal findings of blood chemistry Category: Medical Plan: Improved; her LFTs have remained normal on her recent labs - this was most likely due to her weight and high triglyceride level Will continue to monitor her LFTs regularly (5) Primary osteoarthritis of knees, bilateral: Code(s): M17.0 - Bilateral primary osteoarthritis of knee Category: Medical Plan: X-rays of her left knee done back in December 2022 revealed (+) joint effusion with minimal degenerative changes States that her knee pain has mostly subsided since and her right knee is the one that has been bothering her more often lately Right knee x-rays done in August 2023 revealed (+) mild osteoarthritis of the right knee in the patellofemoral compartment There are mostly minimal marginal osteophytes and the medial and lateral compartments are normal Have advised her that losing weight should help ease up on her knee symptoms and that exercising her right knee joint regularly should help her manage her symptoms better as well Will consider referring her to orthopedics if her knee symptoms progress or get worse (6) Vitamin D deficiency: Code(s): E55.9 - Vitamin D deficiency, unspecified Category: Medical Plan: Continue Vitamin D3 2000 units QD (7) Thyroid mass: Code(s): E07.9 - Disorder of thyroid, unspecified Category: Medical Plan: Thyroid US done in October 2021 revealed subcentimeter spongiform nodules and colloid cysts that do NOT require follow up imaging studies Repeat thyroid US in June 2023 came out normal although there is an area of concern at the level of the hyoid bone which is slightly superior to the thyroid and was not definitively imaged - consider correlation with a repeat soft tissue neck ultrasound for further evaluation This was done in August 2023 and US revealed that the nodule seen on prior scan corresponds to a 1.7 cm vascular midline nodule of which the etiology is uncertain. This is certainly amenable to ultrasound-guided biopsy if further evaluation is needed She was referred to and seen by vascular surgery last month and they in turn recommended IR Bx instead She will now be referred to Interventional Radiology for consideration for biopsy of her neck nodule (8) Obesity (BMI 30-39.9): Code(s): E66.9 - Obesity, unspecified Category: Medical Plan: Reinforced diet/exercise as tolerated/lose weight Plan Follow up in 4 months Orders: Orders Complete Blood Count Auto Diff 4 Months D64.9 - Anemia, unspecified TSH reflex Free T4 4 Months E78.00 - Pure hypercholesterolemia, unspecified UA CC w/rflx Micro + Cult 4 Months R30.0 - Dysuria Vitamin D 25-OH Total 4 Months E55.9 - Vitamin D deficiency, unspecified Hemoglobin A1c 4 Months E11.9 - Type 2 diabetes mellitus without complications Comprehensive Mobile. Panel Fast 4 Months E78.00 - Pure hypercholesterolemia, unspecified Lipid Panel 4 Months E78.00 - Pure hypercholesterolemia, unspecified Microalbumin, Random (w Creat) 4 Months E11.9 - Type 2 diabetes mellitus without complications Referrals Interventional Radiology Referral E07.9 - Disorder of thyroid, unspecified, R22.1 - Localized swelling, mass and lump, neck
== END 2024-04-30 16:29 | disposition home or self-care (01) ==
PROVIDERS: PCP Internal Medicine; Visit Provider Internal Medicine
DX: E11.65 Type 2 diabetes mellitus with hyperglycemia (principal); E78.2 Mixed hyperlipidemia; E66.9 Obesity, unspecified; Z68.31 Body mass index [BMI] 31.0-31.9, adult; I10 Essential (primary) hypertension; M17.0 Bilateral primary osteoarthritis of knee; E55.9 Vitamin D deficiency, unspecified; E07.9 Disorder of thyroid, unspecified

== ENCOUNTER → 2024-04-30 15:37 | Outpatient (BNVA) | payer OTHER, SELFPAY | PROVIDERS: PCP Internal Medicine; Visit Provider Internal Medicine | DX: E11.65 Type 2 diabetes mellitus with hyperglycemia (principal); E78.2 Mixed hyperlipidemia; I10 Essential (primary) hypertension; R79.89 Other specified abnormal findings of blood chemistry; M17.0 Bilateral primary osteoarthritis of knee; E55.9 Vitamin D deficiency, unspecified; E07.9 Disorder of thyroid, unspecified; E66.9 Obesity, unspecified; Z68.31 Body mass index [BMI] 31.0-31.9, adult; Z79.84 Long term (current) use of oral hypoglycemic drugs; Z79.899 Other long term (current) drug therapy | CPT/HCPCS: 96127 ==

== ENCOUNTER 2024-08-24 09:55 | Outpatient (REF) | payer OTHER, SELFPAY ==
[2024-08-24 10:09] LABS: MANUAL DIFF FLAG NO
[2024-08-24 11:02] LABS: Basophils Percent Auto 0.4 % (0-2); Eosinophils Percent Auto 0.5 % (0-4); Hematocrit 39.1 % (37.0-47.0); Hemoglobin 13.1 g/dl (12.0-16.0); Imm Gran Abs Auto 0.01 X10*3/uL (0.00-0.03); Imm Gran Pct Auto 0.1 % (0.0-0.4); Lymphocytes Absolute Auto 3.3 X10*3/uL (1.2-4.9); Lymphocytes Percent Auto 39.5 % (20-40); Mean Corpuscular HGB Conc 33.5 g/dl (31.0-35.0); Mean Corpuscular Hemoglobin 28.7 pg (27.0-33.0); Mean Corpuscular Volume 85.7 fL (80.0-98.0); Mean Platelet Volume 9.1 fL (9.4-12.3); Monocytes Absolute Auto 0.5 X10*3/uL (0.1-1.2); Monocytes Percent Auto 6.2 % (2-11); Neutrophils Absolute Auto 4.4 x10*3/uL (2.0-8.3); Neutrophils Percent Auto 53.3 % (45-73); Platelet Count 353 X10*3/uL (160-400); Red Blood Count 4.56 X10*6/uL (4.20-5.50); Red Cell Distribution Width 12.7 % (11.0-16.0); White Blood Count 8.3 X10*3/uL (4.8-10.8)
[2024-08-24 11:04] LABS: Appearance Urine Clear; Color Urine Yellow; Glucose Urine UA >=1000 mg/dL (Negative); Leukocyte Esterase Urine Trace (Negative); Nitrite Urine Negative (Negative); PH 5.5 (5.0-9.0); Specific Gravity - Urine >= 1.030 (1.005-1.025); UMIC TRIGGER UACC YES; Urine Blood Negative (Negative); Urine Ketones Negative (Negative); Urine Protein Negative (Neg-Trace)
[2024-08-24 11:18] LABS: Estimated Average Glucose 111 mg/dL; Hemoglobin A1C 125.1533 umol/L; Hemoglobin A1c % 5.5 % (<6.0); Total Hemoglobin (HGBA1C) 3390.1024 umol/L
[2024-08-24 11:27] LABS: Bacteria Urine Trace (None Seen); Hyaline Casts Urine 0-2 /LPF (0-2); RBC Urine 0-2 /HPF (0-2); Squamous Epithelial Cell Urine 0-2 /HPF (0-2); UACC Culture Trigger YES
[2024-08-24 11:36] LABS: Creatinine Urine 103.18 mg/dL; Microalbum/Creatinine Ratio Ur 9.6 ug/mg cr (<30)
[2024-08-24 11:48] LABS: Alanine Aminotransferase 19 U/L (0-31); Albumin Level 4.2 g/dL (3.5-5.0); Alkaline Phosphatase 55 U/L (39-117); Anion Gap 12 (12-20); Aspartate Amino Transferase 21 U/L (5-31); Bilirubin Total 0.9 mg/dL (0.0-1.0); Blood Urea Nitrogen 13 mg/dL (9-16); Calcium 9.2 mg/dL (8.4-10.2); Carbon Dioxide 23 mmol/L (22-29); Chloride 108 mmol/L (96-108); Cholesterol 120 mg/dL (<200); Estimated Glomerular Filt Rate > 60; Glucose Fasting 92 mg/dL (60-99); HDL Cholesterol 44 mg/dL (>40); LDL Cholesterol Calculated 56 mg/dL (<100); Sodium 139 mmol/L (135-145); Total Protein 7.3 g/dL (6.5-8.0); Triglycerides 104 mg/dL (<150)
[2024-08-24 12:08] LABS: Vitamin D 25-OH Total 38.4 ng/mL (>30)
== END 2024-08-24 09:56 | disposition home or self-care (01) ==
LOC: HO.LAB 09:55
PROVIDERS: PCP Internal Medicine; Visit Provider Internal Medicine
DX: D64.9 Anemia, unspecified (principal); E11.9 Type 2 diabetes mellitus without complications; E78.00 Pure hypercholesterolemia, unspecified; E55.9 Vitamin D deficiency, unspecified; R30.0 Dysuria
CPT/HCPCS: 36415; 80053; 80061; 81001; 81003; 82043; 82306; 82570; 83036; 84443; 85025; 87086

== ENCOUNTER 2024-09-16 08:01 | Outpatient (REF) | payer OTHER, SELFPAY | END 2024-09-16 08:02 | disposition home or self-care (01) | LOC: HO.MAMMO 08:01 | PROVIDERS: PCP Internal Medicine; Visit Provider Internal Medicine | DX: Z12.31 Encounter for screening mammogram for malignant neoplasm of breast (principal) | CPT/HCPCS: 77063; 77067 ==

== ENCOUNTER → 2024-09-16 08:15 | Outpatient (BNV) | payer OTHER, SELFPAY | PROVIDERS: PCP Internal Medicine; Visit Provider Internal Medicine | DX: Z12.31 Encounter for screening mammogram for malignant neoplasm of breast (principal) | CPT/HCPCS: 77063; 77067 ==

== ENCOUNTER 2024-12-11 16:19 | Outpatient (AMB) | payer OTHER, SELFPAY ==
--- NOTE | 2024-12-11 16:24 | MHC.PC.OV ---
Vital Signs 12/11/24 16:25 Height 5 ft 7 in Weight 203 lb 2 oz BMI 31.8 BP 130/84 Blood Pressure Location Lt brachial Position Sitting Pulse 88 Pulse Source Pulse Oximeter Pulse Oximetry (%) 98 Oxygen Delivery Method Room Air Intake Visit Reasons: 4 Months f/u Plc Programmer Required: No Accompanied by: Self / Same As Patient Allergies oxycodone Allergy (Unknown, Verified 12/11/24 16:45) palpitations Medication List - Last Reconciled 12/11/24 by Junior Nicolas MD atorvastatin 80 mg (2 x 40 mg) PO DAILY blood sugar diagnostic (FreeStyle Lite Strips) As directed blood-glucose meter (FreeStyle Lite Meter kit) As directed cholecalciferol (vitamin D3) 50 mcg PO DAILY 90 days empagliflozin (Jardiance) 25 mg PO DAILY lisinopril 10 mg PO DAILY metformin ER 1,000 mg (2 x 500 mg) PO BID pioglitazone 30 mg (2 x 15 mg) PO DAILY semaglutide (Ozempic) 1 mg (0.75 mL) subcut QWEEK 4 weeks valacyclovir 1,000 mg PO TID Tobacco use date assessed: 12/11/24 Dental Screening Dental Screen Date: 12/11/24 Did you have a dental visit in the last 12 months?: Yes Did you have a dental problem in the last 6 months where you did not have access to dental care?: No Was dental information given to patient?: Patient has dentist HPI 4 Months f/u HPI Details Patient comes in today for her follow up visit States that she feels okay except for increased left shoulder pain, which she states has been bothering her for a couple of months now States that she has a hard time raising her left arm up when her shoulder pain flares up She does not recall any recent injury or trauma to her left shoulder She denies any headaches or dizziness Denies any chest pains, no SOB No nausea/vomiting, no abdominal pain No change in bowel habits noted She had her follow up labs done back in August 2024 but her upcoming appointment then ended up getting rescheduled so she does not have any other more recent labs done since [facility] Medical History Primary osteoarthritis of knees, bilateral 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 Maternal Grandfather No problems noted. 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 1. Little interest or pleasure in doing things: not at all 2. Feeling down, depressed, or hopeless: not at all 3. Trouble falling or staying asleep, or sleeping too much: not at all 4. Feeling tired or having little energy: several days 5. Poor appetite or overeating: not at all 6. Feeling bad about yourself - or that you are a failure or have let yourself or your family down: not at all 7. Trouble concentrating on things, such as reading the newspaper or watching television: not at all 8. Moving or speaking so slowly that other people could have noticed. Or the opposite - being so fidgety or restless that you have been moving around a lot more than usual: not at all 9. Thoughts that you would be better off or of hurting yourself in some way: not at all Total score: 1 Depression Screening Interpretation: Negative Depression Screening Done: Yes 70944 - PHQ-9 Billing: Yes Source: Developed by Drs. Ja Young, Ale Green, Morgan De La Cruz and colleagues, with an educational daniel from [employer]. Thrive Questionnaire Date Thrive assessed: 12/05/24 I am a: Patient What is your living situation today?: I have a steady place to live Within the past 12 months, did the food you bought not last and you didn't have the money to get more?: Never true Within the past 12 months, did you worry whether your food would run out before you got money to buy more?: Never true Do you have trouble paying for medicines?: No Do you have trouble getting transportation to medical appointments?: No Do you have trouble paying your heating and electricity bill?: No Do you have trouble taking care of your child, family member or friend?: No Do you have trouble with day-to-day activities such as bathing, preparing meals, shopping, managing finances, etc.?: No Are you currently unemployed and looking for a job?: No Are you interested in more education?: No Please select the resources that you would like help with: None Currently or been in a relationship where the following occur: No concerns reported THRIVE Score: 0 AUDIT C Alcohol Use Questionnaire (AUDIT-C) 1. How often do you have a drink containing alcohol?: Never Total Score: 0 Score Reviewed/Action Taken: Yes ZOILA-7 AMB Questionnaire ZOILA-7 Date ZOILA - 7 assessed: 04/30/24 Feeling nervous, anxious, or on edge: 1 = Several days Not being able to stop or control worryin = Not at all Worrying too much about different things: 0 = Not at all Trouble relaxin = Not at all Being so restless that it is hard to sit still: 0 = Not at all Becoming easily annoyed or irritable: 0 = Not at all Feeling afraid as if something awful might happen: 0 = Not at all Total ZOILA-7 score (0-4 normal; 5-9 mild; 10-14 moderate; 15-21 severe): 1 Source: Developed by Drs. Ja Young, Ale Green, Morgan De La Cruz and colleagues, with an educational daniel from [employer]. Review of Systems Const Denies chills, Denies fatigue, Denies fever(s) and Denies headache(s) ENT Denies dysphagia, Denies dizziness, Denies otalgia, Denies headache(s), Denies neck pain, Denies odynophagia and Denies sore throat Card Denies chest pain, Denies irregular heart rhythm, Denies palpitations and Denies dyspnea Resp Denies chest congestion, Denies cough and Denies dyspnea GI Denies abdominal pain, Denies constipation, Denies dysphagia, Denies heartburn, Denies diarrhea, Denies nausea, Denies odynophagia and Denies vomiting Denies difficulty voiding, Denies dysuria, Denies urinary incontinence and Denies urinary urgency Musc Denies back pain, Reports arthralgias (in the left shoulder - see HPI for details) and Denies neck pain Skin/Breast Denies rash Neuro Details: (+) left facial drooping and numbness Denies dizziness, Denies headache(s) and Denies paresthesias Psych Denies anxiety and Denies depression Endo Denies fatigue and Denies palpitations Anirudh/Lymph Denies easy bruising Physical exam (Primary Care) Vital Signs: Last Vital Signs Pulse 88 12/11/24 16:25 BP 130/84 12/11/24 16:25 Pulse Ox 98 12/11/24 16:25 Oxygen Delivery Method Room Air 12/11/24 16:25 BMI result Body Mass Index 31.8 Tobacco/Smoking Status: Tobacco use Status Tobacco use date assessed 12/11/24 12/11/24 16:30 Patient Tobacco Use Status Never used Tobacco 12/11/24 16:30 e-Cigarette/Vaping Use Never Used 12/11/24 16:30 PHQ-9: PHQ-9 Score PHQ-9: Total score 1 12/11/24 21:32 Depression Screening Interpretation: Negative Thrive Assessment: Date of Thrive Assessment Date Thrive assessed 12/05/24 12/11/24 16:30 Currently or been in a relationship where the following occur: No concerns reported Const General: no acute distress and alert HENMT Ears: TM's normal bilaterally and EAC's normal Throat: Yes posterior oropharynx normal and Yes tonsils normal (no TP congestion) Neck Neck: Yes supple and No lymphadenopathy Thyroid: Thyroid normal Resp Auscultation: clear to auscultation bilaterally, no rales and no wheezes Cardio Rate: regular rate Rhythm: regular rhythm Heart sounds: no murmurs GI Palpation (GI): Soft to palpation and nontender Auscultation: normal bowel sounds General: Yes no CVA tenderness Back/Spine/Pelvis Back: no CVA tenderness Thoracic/Lumbar Spine: No lumbar spinal tenderness Skin Rashes: no rashes Extrem General: Yes no clubbing, cyanosis or edema Left upper extremity: shoulder/upper arm Details: tenderness Location: of the A-C joint; no swelling Results Reviewed Results Reviewed: Laboratory Tests 08/24/24 08/24/24 10:03 10:08 WBC 8.3 Hgb 13.1 Hct 39.1 Plt Count 353 Sodium 139 Potassium 4.0 Creatinine 0.68 Estimated GFR > 60 Fasting Glucose 92 Hemoglobin A1c % 5.5 Calcium 9.2 AST 21 ALT 19 Triglycerides 104 Cholesterol 120 LDL Cholesterol, Calc 56 HDL Cholesterol 44 25-OH Vitamin D Total 38.4 TSH 1.50 Ur Specific [place] >= 1.030 H Urine Protein Negative Urine Glucose (UA) >=1000 H Urine Blood Negative Urine Nitrite Negative Ur Leukocyte Esterase Trace H Microalb/Creat Ratio 9.6 Coding Level of Care Code Est Pt Level 4 (22992) Diagnoses Type 2 diabetes mellitus with hyperglycemia, without long-term current use of insulin E11.65 Diabetes mellitus type: type 2 Diabetes mellitus supervisor intermediates insulin use: without mcfp use Diabetes mellitus complication status: with hyperglycemia Mixed hyperlipidemia E78.2 Benign essential hypertension I10 Elevated LFTs R79.89 Primary osteoarthritis of knees, bilateral M17.0 Vitamin D deficiency E55.9 Thyroid mass E07.9 Acute pain of left shoulder M25.512 Chronicity: acute Obesity (BMI 30-39.9) E66.9 Additional Codes PHQ-9 - 14793 - PHQ-9 Billing: Yes ([id number]) Assessment & Plan Assessment & Plan (1) Diabetes mellitus: Code(s): E11.9 - Type 2 diabetes mellitus without complications Category: Medical Qualifiers: Diabetes mellitus type: type 2 Diabetes mellitus supervisor intermediates insulin use: without supervisor intermediates use Diabetes mellitus complication status: with hyperglycemia Qualified Code(s): E11.65 - Type 2 diabetes mellitus with hyperglycemia Plan: Her HgbA1c was at 5.5% on her labs done back in August 2024 (was previously at 5.4% earlier this year) - goal is at least < 7.0% Reinforced diabetic diet Continue Metformin ER 500 mg 2 tablets BID, Pioglitazone 30 mg QD, Jardiance 25 mg QD and Ozempic 1 mg SQ once a week Have advised patient that if her HgbA1c continues to stay low (at least <5.8%), we can consider taking her off some of her diabetes meds but I will defer that to her treating yard attendant Follow up with endocrinology (Dr. Boss) as scheduled (2) Mixed hyperlipidemia: Code(s): E78.2 - Mixed hyperlipidemia Category: Medical Plan: Results of her labs done back in August 2024 reviewed and discussed with patient Reinforced low cholesterol diet Continue Fenofibrate 150 mg QD and Atorvastatin 80 mg QD Will recheck her labs and fasting lipids in 4 months for follow up (3) Benign essential hypertension: Code(s): I10 - Essential (primary) hypertension Category: Medical Plan: Reinforced low sodium diet - goal is systolic BP of 120 mm or less Continue Lisinopril 10 mg QD She was taken off Amlodipine 2.5 mg last year due to orthostatic symptoms Patient is reminded to continue monitoring her blood pressure regularly (4) Elevated LFTs: Code(s): R79.89 - Other specified abnormal findings of blood chemistry Category: Medical Plan: Improved; her LFTs have remained normal on her recent labs - this was most likely due to her weight and high triglyceride level at that time Will continue to monitor her LFTs regularly (5) Primary osteoarthritis of knees, bilateral: Code(s): M17.0 - Bilateral primary osteoarthritis of knee Category: Medical Plan: X-rays of her left knee done back in December 2022 revealed (+) joint effusion with minimal degenerative changes States that her knee pain has mostly subsided since but her right knee then started bothering her more often Right knee x-rays done in August 2023 revealed (+) mild osteoarthritis of the right knee in the patellofemoral compartment There are mostly minimal marginal osteophytes and the medial and lateral compartments are normal Have advised her that losing weight should help ease up on her knee symptoms and that exercising her right knee joint regularly should help her manage her symptoms better as well Patient states that her knee symptoms appear to have subsided lately and both of her knees have not been bothering her for a few months now Can consider referring her to orthopedics if her knee symptoms progress or get worse (6) Vitamin D deficiency: Code(s): E55.9 - Vitamin D deficiency, unspecified Category: Medical Plan: Continue Vitamin D3 2000 units QD (7) Thyroid mass: Code(s): E07.9 - Disorder of thyroid, unspecified Category: Medical Plan: Thyroid US done in October 2021 revealed subcentimeter spongiform nodules and colloid cysts that do NOT require follow up imaging studies Repeat thyroid US in June 2023 came out normal although there is an area of concern at the level of the hyoid bone which is slightly superior to the thyroid and was not definitively imaged - consider correlation with a repeat soft tissue neck ultrasound for further evaluation This was done in August 2023 and US revealed that the nodule seen on prior scan corresponds to a 1.7 cm vascular midline nodule of which the etiology is uncertain. This is certainly amenable to ultrasound-guided biopsy if further evaluation is needed She was referred to and seen by vascular surgery late last year and they in turn recommended IR Bx instead She was then referred to Interventional Radiology for consideration for biopsy of her neck nodule earlier this year but she was never seen, as they were apparently looking for a more recent US when they were processing her referral back in late July 2024 (her scan was then a year old) so the referral was never completed Will try to get patient to go for a repeat neck US and will refer her AGAIN for consideration for Bx if repeat US still shows the nodule (8) Left shoulder pain: Code(s): M25.512 - Pain in left shoulder Category: Medical Qualifiers: Chronicity: acute Qualified Code(s): M25.512 - Pain in left shoulder Plan: Will send patient for x-rays of the left shoulder for further evaluation (9) Obesity (BMI 30-39.9): Code(s): E66.9 - Obesity, unspecified Category: Medical Plan: Reinforced diet/exercise as tolerated/lose weight Plan Follow up in 4 months Orders: Orders Comprehensive [place]. Panel Fast 4 Months E78.00 - Pure hypercholesterolemia, unspecified Complete Blood Count Auto Diff 4 Months D64.9 - Anemia, unspecified Microalbumin, Random (w Creat) 4 Months E11.9 - Type 2 diabetes mellitus without complications TSH reflex Free T4 4 Months E78.00 - Pure hypercholesterolemia, unspecified UA CC w/rflx Micro + Cult 4 Months R30.0 - Dysuria US soft tiss head and/or neck Today R93.89 - Abnormal findings on diagnostic imaging of other specified body structures XR shoulder LT min 2V 12/11/24 M25.512 - Pain in left shoulder Hemoglobin A1c 4 Months E11.9 - Type 2 diabetes mellitus without complications Lipid Panel 4 Months E78.00 - Pure hypercholesterolemia, unspecified Vitamin D 25-OH Total 4 Months E55.9 - Vitamin D deficiency, unspecified
[2024-12-11 16:25] VITALS: BP 130/84; PULSE 88; O2SAT 98; BMI 31.8
--- OUTSIDE RECORDS SUMMARY | 2024-12-11 17:55 | XMS_ITS | Clinical Summary ---
Author Organization [facility] Address [address] [place] [address] Phone Care Team Providers Care Asphalt Coater Name Role Phone Junior Nicolas MD Primary Care Provider [phone] [phone] Allergies No known active allergies Medications VITAMIN D3 50 mcg (2,000 unit) capsule TAKE 1 CAPSULE BY MOUTH EVERY DAY FOR 90 DAYS *OTC N/C* 06/15/19 22 Active lisinopril (PRINIVIL,ZESTRI L) 10 MG tablet Take 10 mg by mouth daily. 07/01/19 22 Active FREESTYLE LITE METER meter kitIndications:T ype 2 diabetes mellitus with hyperglycemia, without long-term current use of insulin Use as instructed 1 kit 07/12/19 23 Active lancets 28 gauge MiscIndications: Type 2 diabetes mellitus with hyperglycemia, without long-term current use of insulin 1 each by Miscellaneous route every morning. 100 each 3 07/12/19 23 Active FREESTYLE LITE Strp stripsIndication s:Type 2 diabetes mellitus with hyperglycemia, without long-term current use of insulin 1 each by Miscellaneous route every morning. 100 strip 3 07/12/19 23 Active metFORMIN (GLUCOPHAGE-XR) 500 MG 24 hr tabletIndication s:Hyperlipidemia LDL goal <100 Take 2 tablets (1,000 mg total) by mouth 2 (two) times a day. 360 tablet 1 07/25/19 25 Active pioglitazone (ACTOS) 15 MG tabletIndication s:Type 2 diabetes mellitus with hyperglycemia, without long-term current use of insulin Take 1 tablet (15 mg total) by mouth daily. 90 tablet 1 07/25/19 25 Active OZEMPIC 1 mg/dose (4 mg/3 mL) subcutaneous injection penIndications:H yperlipidemia LDL goal <100 Inject 1 mg under the skin every 7 days. 9 mL 1 07/25/19 25 Active atorvastatin (LIPITOR) 40 MG tabletIndication s:Hyperlipidemia LDL goal <100 Take 1 tablet (40 mg total) by mouth daily. 90 tablet 1 07/25/19 25 Active empagliflozin (JARDIANCE) 25 mg tabletIndication s:Type 2 diabetes mellitus with hyperglycemia, without long-term current use of insulin Take 1 tablet (25 mg total) by mouth daily. 90 tablet 1 07/25/19 25 Active Active Problems Problem Noted Date Diagnosed Date Type 2 diabetes mellitus wit h hyperglycemia, without long-term current use of insulin 07/07/2021 Assessment & Plan (07/24/2024 3:50 PM EDT): I would assume that her glycemic levels are controlled but I do not have her most recent hemoglobin A1c because it was not done or a glucose meter so we will continue current regimen. Assessment & Plan (01/24/2024 9:26 AM EDT): Controlled based on last hemoglobin A1c of 5.9%. She does not had any symptoms of hypoglycemia. She has dizziness upon standing so it could be orthostasis. I will check a CBC to make sure that she does not have anemia which could result in a low hemoglobin A1c. If she does develop hypoglycemia I will stop pioglitazone. I would not do this today we will continue current regimen. Assessment & Plan (07/31/2023 12:45 PM EDT): Controlled based on hemoglobin A1c 6.5% continue current regimen no changes required. Assessment & Plan (10/24/2022 9:36 AM EDT): Control hemoglobin A1c 7.2% she will continue metformin 500 mg 2 tablets twice daily, Jardiance 25 mg daily and I will increase the dose of Trulicity to 3.0 mg weekly. She will return for follow-up in 3 months. Assessment & Plan (07/11/2022 10:15 AM EDT): Uncontrolled. Hemoglobin A1c 7.8% at this point I will increase the Jardiance to 25 mg she should continue metformin. I have reordered Trulicity 1.5 mg. She is having difficulty getting this medication and hopefully will be available. I wrote for new freestyle marilyn meter and hopefully we can download this meter when she brings it in for follow-up visit in 3 months time. Assessment & Plan (04/12/2022 10:14 AM EST): Uncontrolled. Her hemoglobin A1c is 7.7% and she has had minimal improvement after adding Trulicity which is unexpected but it has been the holiday season and she is probably eating more. Normally I would like to increase the dose of Trulicity from 1.5 to 3.0 mg weekly but this medication is on backorder and we cannot get the higher doses. So I will add Jardiance 10 mg daily. I did inform the patient that this medication is associated with glucosuria and potential yeast infection so she needs to drink plenty of water to prevent dehydration and acute renal insufficiency and also to use wipes after urinating to prevent yeast infections. Other than that the medication is actually quite good can help with weight loss aid has cardiovascular benefits he has renal benefits and improved glycemic control. She should take 1 pill daily. Assessment & Plan (07/07/2021 1:48 PM EDT): Uncontrolled. Hemoglobin A1c 7.9%. She reports good fasting glucose levels. She should continue Metformin as she is currently doing. Since she must have postprandial hyperglycemia then we can increase the dose of Trulicity from 0.75 mg to 1.5 mg weekly. She has no history of medullary thyroid carcinoma pancreatitis. I do recommend that the patient see an pre coder and dietitian/corporate travel agent. She will follow in 3 months. I have requested urine microalbumin and hemoglobin A1c on the follow-up visit. Hyperlipidemia LDL goal <100 07/07/2021 Assessment & Plan (07/24/2024 3:50 PM EDT): Controlled. LDL 49 mg continue atorvastatin 40 mg daily. Assessment & Plan (01/24/2024 9:27 AM EDT): Based on last lab work LDL 107 she was uncontrolled. But atorvastatin was increased to 40 mg hopefully this has dropped below 100 mg/dL. She will follow in 6 months time. Assessment & Plan (07/31/2023 12:45 PM EDT): Uncontrolled based on LDL of 107 but I did increase the atorvastatin from 20 to 40 mg but I do not have repeat lipid panel. Apparently the labs . Will request lipid panel for the follow-up visit. Assessment & Plan (05/01/2023 11:49 AM EST): Uncontrolled based on last lab work LDL 107 mg/dL she is due to repeat a fasting lipid panel. She should continue atorvastatin 40 mg in the meantime. Assessment & Plan (10/24/2022 9:21 AM EDT): She is using atorvastatin 40 mg but has not repeated lipid panel. I requested the study again. Assessment & Plan (07/11/2022 10:16 AM EDT): Uncontrolled. LDL 170 mg/dL and furthermore HDL was low at 32 mg/dL. She is compliant with atorvastatin 20 mg and increasing the dose to 40 mg and repeating lipid panel prior to the follow-up visit in 3 months. Assessment & Plan (04/12/2022 9:57 AM EST): Unfortunately patient did not do lab work as requested so I do not have LDL levels she did have elevated triglycerides in the past so I requested direct LDL. She is on atorvastatin 10 mg and she should continue this medication. Assessment & Plan (07/07/2021 1:48 PM EDT): I do not have a LDL level. It has not been able to be calculated due to elevated triglycerides. The triglycerides are elevated due to poor glycemic control. She has low HDL levels and she probably has a high cardiac risk factor. She is on atorvastatin 10 mg and she should continue this. I will request lipid panel and direct LDL for the follow-up visit in 3 months time. Family History Medical History Relation Comments No Known Problems Father Hyperlipidemia Mother Relation Status Comments Father Mother Alive Social History Tobacco Use Types Packs/Day Years Used Date Smoking Tobacco: Never Smokeless Tobacco: Never Alcohol Use Standard Drinks/Week Comments Not Currently 0 (1 standard drink = 0.6 oz pur e alcohol) Education Answer Date Recorded Are you interested in more education? Not on ginny e 08/06/2022 Are you concerned about learning? Not on file 08/06/2022 No 08/06/2022 No 08/06/2022 Digital Access Answer Date Recorded No 09/04/2022 No 09/04/2022 Reliable internet access at home? Not on file 09/04/2022 Device with a working camera? Not on file Comments Unknown Sex and Gender Information Value Date Recorded Sex Assigned at Not on file Legal Sex Female 2:13 PM EST Gender Identity Not on file Sexual Orientation Not on file Last Filed Vital Signs Vital Sign Reading Time Taken Comments Blood Pressure 114/66 07/24/2024 3:29 PM EDT Pulse 107 07/24/2024 3:29 PM EDT Temperature 36.6 C (97.8 F) 07/07/2021 1:10 PM EDT Respiratory Rate - - Oxygen Saturation 99% 07/24/2024 3:29 PM EDT Inhaled Oxygen Concentration - - Weight 91.5 kg (201 lb 12.8 oz) 07/24/2024 3:29 PM EDT Height 170.2 cm (5' 7 ) 07/24/2024 3:29 PM EDT Body Mass Index 31.61 07/24/2024 3:29 PM EDT Plan of Treatment Upcoming Encounters Date Type Department Care Team (Late st Contact Info) Description 01/23/2025 3:20 PM EDT Office Visit [facility] [address] [place] [address] [place] [address] Benjie Boss DO [address] [place] [address] Health Maintenance Due Date Last Done Comments Adult Td,Tdap Booster 1975 CREATININE LEVEL 1975 POTASSIUM LEVEL 1975 DEPRESSION SCREENING 1987 HEPATITIS C SCREENING 10/29/1993 HIV ONE-TIME SCREENING (18-65 YEARS) 10/29/1993 PNEUMOCOCCAL VACCINES (0-49 years) (1 of 2 - PCV) 10/29/1994 PAP SMEAR 10/29/1996 MAMMOGRAM 2015 COLOGUARD 10/29/2020 COLONOSCOPY 10/29/2020 COLORECTAL CANCER SCREENING 10/29/2020 FIT TEST 10/29/2020 FOBT 10/29/2020 SIGMOIDOSCOPY 10/29/2020 VIRTUAL COLONOSCOPY 10/29/2020 DIABETIC EYE EXAM 07/07/2021 HEMOGLOBIN A1C 07/24/2024 01/24/2024, 07/10, 05/01/2023, Additional history exists INFLUENZA VACCINE (#1) 2024 COVID-19 VACCINE ( - 2023- season) 2024 BLOOD PRESSURE 01/23/2025 07/24/2024 SMOKING STATUS SCREENING (Once After 26 Yrs) Completed 07/24/2024 HEPATITIS A VACCINES Aged Out No long er eligible based on patient's age to complete this topic HIB VACCINES Aged Out No longer eligi ble based on patient's age to complete this topic MENINGOCOCCAL VACCINES (ACWY) Aged Out No longer eligible based on patient's age to complete this topic MENINGOCOCCAL VACCINES (B) Aged Out N o longer eligible based on patient's age to complete this topic Medical Devices Not on file Procedures Procedure Name Priority Date/Time Associated Diagnosis Comments HEMOGLOBIN A1C Routine 01/24/2024 8:19 AM EDT Type 2 diabetes mellitus with hyperglycemia, without long-term current use of insulin from Last 3 Months or Most Recently Relevant to Health Maintenance Results * Hemoglobin A1c (01/24/2024 8:19 AM EDT) HEMOGLOBIN A1C 5.7 4.3 - 5.8 % [facility] Blood 01/24/2024 8:19 AM EDT 01/24/2024 8:36 AM EDT us Benjie Boss DO LAB BLOOD ORDERABLES Final Resul t [facility] [address] [place] [address] from Last 3 Months or Most Recently Relevant to Health Maintenance Insurance PPO CIG PPO CIG PPO CIG PPO CIG PPO CIGNA PPO CIGNA PPO CIGNA PPO Care Teams Asphalt Coater Relationship Specialty Start Date End Date Junior Nicolas MD [address] [place] [address] [place] [address] PCP - General Internal Medicine 07/07/21 Additional Source Comments The information contained in this document represents components of the legal health record. It is not the complete legal health record.[facility]
== END 2024-12-11 16:50 | disposition home or self-care (01) ==
LOC: HO.HMCH 16:20
PROVIDERS: PCP Internal Medicine; Visit Provider Internal Medicine
DX: E11.65 Type 2 diabetes mellitus with hyperglycemia (principal); E78.2 Mixed hyperlipidemia; E66.9 Obesity, unspecified; Z68.31 Body mass index [BMI] 31.0-31.9, adult; I10 Essential (primary) hypertension; R79.89 Other specified abnormal findings of blood chemistry; M17.0 Bilateral primary osteoarthritis of knee; E55.9 Vitamin D deficiency, unspecified; E07.9 Disorder of thyroid, unspecified; M25.512 Pain in left shoulder

== ENCOUNTER → 2024-12-11 16:19 | Outpatient (BNVA) | payer OTHER, SELFPAY | PROVIDERS: PCP Internal Medicine; Visit Provider Internal Medicine | DX: M25.512 Pain in left shoulder (principal); E11.65 Type 2 diabetes mellitus with hyperglycemia; E78.2 Mixed hyperlipidemia; I10 Essential (primary) hypertension; R79.89 Other specified abnormal findings of blood chemistry; M17.0 Bilateral primary osteoarthritis of knee; E55.9 Vitamin D deficiency, unspecified; E07.9 Disorder of thyroid, unspecified; E66.9 Obesity, unspecified; Z68.31 Body mass index [BMI] 31.0-31.9, adult | CPT/HCPCS: 96127 ==

== ENCOUNTER 2024-12-12 15:18 | Outpatient (REF) | payer OTHER, SELFPAY ==
--- NOTE | ~2024-12-12 | XR_ITS ---
EXAMINATION: XR SHOULDER, LEFT CLINICAL INFORMATION: M25.512 - Pain in left shoulder COMPARISON: None available. TECHNIQUE: AP external rotation, Grashey, scapular Y, and axillary views of the left shoulder. FINDINGS: The bones and soft tissues are normal. No fracture. Glenohumeral and acromioclavicular alignment is anatomic with normal joint space. No abnormal soft tissue calcifications. XR/XR shoulder LT min 2V IMPRESSION: Unremarkable left shoulder Electronically signed by: Eliecer Willoughby MD 12/12/2024 03:58 PM EDT
--- OUTSIDE RECORDS SUMMARY | 2024-12-12 16:19 | XMS_ITS | Clinical Summary ---
Author Organization [facility] Address [address] [place] [phone] Phone Care Team Providers Care Construction Foreman Name Role Phone Junior Nicolas MD Primary Care Provider [phone] [phone] Allergies No known active allergies Medications VITAMIN [...] do recommend that the patient see an bilingual teacher and dietitian/lawnmower repair mechanic. She will follow in 3 months. I [...] 3:20 PM EDT Office Visit [facility] [address] [place] [address] [place] [address] Benjie Boss DO [address] [place] [address] [email or web address] Health Maintenance Due Date Last Done Comments [...] HEMOGLOBIN A1C 5.7 4.3 - 5.8 % [facility] Blood 01/24/2024 8:19 AM EDT 01/24/2024 8:36 AM EDT us Benjie Boss DO LAB BLOOD ORDERABLES Final Resul t [facility] [address] [place] [address] from Last 3 Months or Most Recently Relevant to Health Maintenance Insurance PPO CIG PPO CIG PPO CIG PPO CIG PPO CIGNA PPO CIGNA PPO CIGNA PPO Care Teams Construction Foreman Relationship Specialty Start Date End Date Junior Nicolas MD [address] [place] [address] [place] [address] PCP - General Internal Medicine 07/07/21 Additional Source Comments The information contained in this document represents components of the legal health record. It is not the complete legal health record.[facility]
== END 2024-12-12 15:19 | disposition home or self-care (01) ==
LOC: HO.XRAY 15:18
PROVIDERS: PCP Internal Medicine; Visit Provider Internal Medicine
DX: M25.512 Pain in left shoulder (principal)
CPT/HCPCS: 73030

== ENCOUNTER → 2024-12-12 15:24 | Outpatient (BNV) | payer OTHER, SELFPAY | PROVIDERS: PCP Internal Medicine; Visit Provider Radiology Diagnostic Radiology | DX: M25.512 Pain in left shoulder (principal) | CPT/HCPCS: 73030 ==

== ENCOUNTER 2025-01-13 08:54 | Outpatient (REF) | payer OTHER, SELFPAY ==
--- NOTE | ~2025-01-13 | US_ITS ---
EXAMINATION: US SOFT TISSUE HEAD AND/OR NECK CLINICAL INFORMATION: Lump inferior to the hyoid bone, superior to the thyroid cartilage, in the midline. COMPARISON: 06/14/2023 thyroid US. 05/15/2023 CT angiogram neck TECHNIQUE: Linear transducer ramsey-scale and color Doppler examination with attention to the palpable midline lump inferior to the hyoid bone, superior to the thyroid cartilage. FINDINGS: Within the midline, there is an mixed echogenicity, predominantly echogenic oval mass with internal vascularity measuring 1.8 x 1.1 x 1.7 cm, correlating with the previously seen midline mass on the prior ultrasound and CT angiogram neck. It lies just deep to the midline strap muscle fascia, and just below the hyoid bone, and just above the thyroid cartilage. 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 It is unchanged in size and appearance when compared with the prior ultrasound of 08/24/2023. US/US soft tiss head and/or neck IMPRESSION: Midline suprahyoid neck mass measuring 1.8 x 1.1 x 1.7 cm, unchanged in size and morphology, in keeping with a thyroglossal duct remnant. Electronically signed by: Luis Silva MD 01/13/2025 11:00 AM EDT
--- OUTSIDE RECORDS SUMMARY | 2025-01-13 08:01 | XMS_ITS | Encounter Summary ---
Author Organization [facility] Address [address] [place] [address] [place], [place] [id number] Phone Care Team Providers Care Sewage Disposal Worker Name Role Phone Junior Nicolas MD Primary Care Provider [phone] Encounter Details Date Type Department Care Team (Late st Contact Info) Description 01/13/2025 8:01 AM EDT Hospital Encounter [facility] [address] [place] [address] Benjie Boss DO [address] [place] [address] [email or web address] Social History Tobacco Use Types Packs/Day Years [...] on file Sexual Orientation Not on file documented as of this encounter Plan of Treatment Upcoming Encounters Date Type Department Care Team (Late st Contact Info) Description 01/23/2025 3:20 PM EDT Office Visit [facility] [address] [place] [address] Benjie Boss DO [address] [place] [address] [email or web address] Pending Results Name Type Priority Associated Diagnoses Date /Time Renal panel Lab Routine Type 2 diabetes mellitus with hyperglycemia, without long-term current use of insulin 01/13/2025 8:06 AM EDT Lipid panel Lab Routine Type 2 diabetes mellitus with hyperglycemia, without long-term current use of insulin Hyperlipidemia LDL goal <100 01/13/2025 8:06 AM EDT Hemoglobin A1c Lab Routine Type 2 diabetes mellitus with hyperglycemia, without long-term current use of insulin 01/13/2025 8:06 AM EDT CBC Lab Routine Type 2 diabetes mellitus with hyperglycemia, without long-term current use of insulin 01/13/2025 8:06 AM EDT Scheduled Orders Name Type Priority Associated Diagnoses Orde r Schedule Renal panel Lab Routine Type 2 diabetes mellitus with hyperglycemia, without long-term current use of insulin As Needed for 1 Occurrences starting 01/13/2025 until 01/13/2025 Lipid panel Lab Routine Type 2 diabetes mellitus with hyperglycemia, without long-term current use of insulin Hyperlipidemia LDL goal <100 As Needed for 1 Occurrences starting 01/13/2025 until 01/13/2025 Hemoglobin A1c Lab Routine Type 2 diabetes mellitus with hyperglycemia, without long-term current use of insulin As Needed for 1 Occurrences starting 01/13/2025 until 01/13/2025 CBC Lab Routine Type 2 diabetes mellitus with hyperglycemia, without long-term current use of insulin As Needed for 1 Occurrences starting 01/13/2025 until 01/13/2025 documented as of this encounter Visit Diagnoses Diagnosis Type 2 diabetes mellitus with hyperglycemia, without long-term current use of insulin Hyperlipidemia LDL goal <100 Other and unspecified hyperlipidemia documented in this encounter Care Teams Sewage Disposal Worker Relationship Specialty Start Date End Date Junior Nicolas MD [address] [place] [address] [place] [address] PCP - General Internal Medicine 07/07/21 documented as of this encounter Additional Source Comments The information contained in this document represents components of the legal health record. It is not the complete legal health record.[facility]
--- OUTSIDE RECORDS SUMMARY | 2025-01-13 09:49 | XMS_ITS | Clinical Summary ---
Author Organization [facility] Address [address] [place] [address] Phone Care Team Providers Care Topper Press Operator Name Role Phone Junior Nicolas MD Primary Care Provider [phone] [phone] Allergies No known active allergies Medications VITAMIN [...] do recommend that the patient see an special distribution clerk and dietitian/obiee lead developer. She will follow in 3 months. I [...] the follow-up visit in 3 months time. Encounters Date Type Department Care Team Description 01/13/2025 8:01 AM EDT Hospital Encounter [facility] [address] [place] [address] Benjie Boss DO from Last 3 Months Family History Medical History Relation Comments No [...] 3:20 PM EDT Office Visit [facility] [address] [place] [address] [place] [address] Health Maintenance Due Date Last Done Comments [...] VACCINE (#1) 2024 COVID-19 VACCINE ( - season) 2024 BLOOD PRESSURE 01/23/2025 07/24/2024 SMOKING [...] DO LAB BLOOD ORDERABLES Final Resul t [address] [address] from Last 3 Months or Most Recently Relevant to Health Maintenance Insurance CIGNA PPO CIGNA PPO CIGNA PPO CIGNA PPO CIGNA PPO CIGNA PPO CIGNA PPO CIGNA PPO Member Subscriber Plan / Payer (Ef fective 2022-Present) Name:BuenoTerri diaz Relation to Subscriber:Self Name:Bueno, Jimberenice Payer ID:[id number] ([facility]) Type:PPO Address: [address] [place] [id number] Care Teams Topper Press Operator Relationship Specialty Start Date End Date Junior Nicolas MD [address] [place] [address] [place], [place] [address] PCP - General Internal Medicine 07/07/21 Additional Source Comments The information contained in this document represents components of the legal health record. It is not the complete legal health record.[facility]
== END 2025-01-13 08:55 | disposition home or self-care (01) ==
LOC: HO.HMGCX 08:54
PROVIDERS: PCP Internal Medicine; Visit Provider Internal Medicine
DX: R93.89 Abnormal findings on diagnostic imaging of other specified body structures (principal)
CPT/HCPCS: 76536

== ENCOUNTER → 2025-01-13 08:57 | Outpatient (BNV) | payer OTHER, SELFPAY | PROVIDERS: PCP Internal Medicine; Visit Provider Radiology Diagnostic Radiology | DX: R22.1 Localized swelling, mass and lump, neck (principal) | CPT/HCPCS: 76536 ==